=== PATIENT | female | born 1995 | race Caucasian/White ===

== ENCOUNTER 2021-07-16 15:49 | Inpatient (IN) | payer OTHER, SELFPAY ==
[2021-07-16] VITALS (26 sets, daily range): BP systolic 72–148; BP diastolic 29–100; PULSE 81–107; TEMP 37.2; BMI 51.0
[2021-07-16 16:44] LABS: Basophils Percent Auto 0.3 % (0.2-1.2); Eosinophils Absolute Auto 0.2 K/mm3 (0-0.3); Eosinophils Percent Auto 1.8 % (0-4.4); Hematocrit 35.7 % (37.0-47.0); Hemoglobin 11.1 g/dL (12.0-15.0); Immature Granulocyte Percent A 1.1 % (0-0.5); Lymphocytes Absolute Auto 1.46 K/mm3 (0.9-3.2); Lymphocytes Percent Auto 16.4 % (18.3-44.2); Mean Corpuscular HGB Conc 31.1 g/dl (32-36); Mean Corpuscular Hemoglobin 23.3 pg (26-34); Mean Platelet Volume 10.6 fl (7.4-10.4); Monocytes Absolute Auto 0.5 K/mm3 (0.1-0.6); Monocytes Percent Auto 5.3 % (2.6-8.5); Neutrophils Absolute Auto 6.7 K/mm3 (1.3-6.7); Neutrophils Percent Auto 75.1 % (45.5-73.1); Platelet Count Result 345 k/mm3 (150-375); Red Blood Count 4.76 M/mm3 (4.2-5.4); Red Cell Distribution Width 16.4 % (11.5-14.5); White Blood Count 8.9 K/mm3 (4.5-10.0)
[2021-07-16] MEDS: DINOPROSTONE 10 MG VAG INSERT VAGINAL (16:52)
--- NOTE | 2021-07-16 16:57 | LDADM ---
This patient, Chacha Galindo, was admitted to Labor/Delivery/Recovery 105 on 07/16/21 at 15:49. Plans for labor, pain management and were discussed with patient. Patient/family oriented to hospital policies and general routines including ID bracelet, bed and alarms, visiting hours, pain management, procedures, bathroom and other care routines, personal items, smoking policy, room service/diet and guest tray routines, security routines, and visiting hours. Patient/Family are encouraged to report perceived risks to care and to ask questions if they do not understand what they are told or what they should do. See OBIX for further documentation.
[2021-07-16 16:58] LABS: Alanine Aminotransferase 29 U/L (4-35); Albumin Level 3.4 g/dL (3.5-5.1); Alkaline Phosphatase 177 U/L (38-126); Anion Gap 9 mmol/L (8-16); Aspartate Amino Transferase 28 U/L (14-36); Bilirubin,Total 0.2 mg/dL (0.2-1.3); Blood Urea Nitrogen 13 mg/dL (7-17); Calcium 9.1 mg/dL (8.4-10.2); Carbon Dioxide 19 mmol/L (22-30); Chloride 105 mmol/L (98-107); Estimated Glomerular Filt Rate > 60; Glucose 107 mg/dL (65-110); Sodium 133 mmol/L (137-145); Uric Acid 6.1 mg/dL (2.5-7.5)
--- NOTE | 2021-07-16 19:15 | WPDANESEPP ---
Anes - Eval Pre Procedure Procedure: labor pain Date/Time: 07/16/21 19:15 Surgeon: luann Pre Op Diagnosis: IOL Patient Data Age: 26 Gender: F Height: 1.5 m Weight: 114.55 kg Last Vital Signs Temp 37.2 C 07/16/21 17:01 Pulse 91 07/16/21 19:01 BP 136/65 07/16/21 19:01 Allergies Allergy/AdvReac Type Severity Reaction Status Date / Time No Known Allergies Allergy Verified 06/20/21 12:20 Home Medications Medication Instructions Recorded Confirmed Type famotidine [Pepcid] 40 mg PO DAILY 06/20/21 06/20/21 History prenat.vits,crystal,[id number] 1 tablet PO DAILY 06/20/21 06/20/21 History [ #2] Laboratory Tests 07/16/21 07/16/21 07/16/21 16:18 16:18 16:18 WBC 8.9 K/mm3 K/mm3 (4.5-10.0) RBC 4.76 M/mm3 M/mm3 (4.2-5.4) Hgb 11.1 g/dL L g/dL (12.0-15.0) Hct 35.7 % L % (37.0-47.0) MCV 75.0 fl L fl (80-100) MCH 23.3 pg L pg (26-34) MCHC 31.1 g/dl L g/dl (32-36) RDW 16.4 % H % (11.5-14.5) Plt Count 345 k/mm3 k/mm3 (150-375) MPV 10.6 fl H fl (7.4-10.4) Immature Gran % (Auto) 1.1 % H % (0-0.5) Neut % (Auto) 75.1 % H % (45.5-73.1) Lymph % (Auto) 16.4 % L % (18.3-44.2) [place] % (Auto) 5.3 % % (2.6-8.5) Eos % (Auto) 1.8 % % (0-4.4) Baso % (Auto) 0.3 % % (0.2-1.2) Lymph # (Auto) 1.46 K/mm3 K/mm3 (0.9-3.2) [place] # (Auto) 0.5 K/mm3 K/mm3 (0.1-0.6) Eos # (Auto) 0.2 K/mm3 K/mm3 (0-0.3) Baso # (Auto) 0.0 K/mm3 K/mm3 (0.0-0.1) Abs Immat Gran (auto) 0.10 K/mm3 H K/mm3 (0.00-0.031) Absolute Neuts (auto) 6.7 K/mm3 K/mm3 (1.3-6.7) Absolute Nucleated RBC 0.0 K/mm3 K/mm3 (0.0-0.012) Nucleated RBC % 0.0 % % (0.0-0.2) Sodium Potassium Chloride Carbon Dioxide Anion Gap BUN Creatinine Estim Creat Clear Calc Estimated GFR Glucose Uric Acid Cancelled Calcium Total Bilirubin AST ALT Alkaline Phosphatase Total Protein Albumin RPR Pending Blood Type Antibody Screen 07/16/21 07/16/21 16:18 16:18 WBC RBC Hgb Hct MCV MCH MCHC RDW Plt Count MPV Immature Gran % (Auto) Neut % (Auto) Lymph % (Auto) [place] % (Auto) Eos % (Auto) Baso % (Auto) Lymph # (Auto) [place] # (Auto) Eos # (Auto) Baso # (Auto) Abs Immat Gran (auto) Absolute Neuts (auto) Absolute Nucleated RBC Nucleated RBC % Sodium 133 mmol/L L mmol/L (137-145) Potassium 4.0 mmol/L mmol/L (3.4-5.0) Chloride 105 mmol/L mmol/L (98-107) Carbon Dioxide 19 mmol/L L mmol/L (22-30) Anion Gap 9 mmol/L mmol/L (8-16) BUN 13 mg/dL mg/dL (7-17) Creatinine 0.80 mg/dL mg/dL (0.7-1.0) Estim Creat Clear Calc Not Reportable Estimated GFR > 60 (59 - ) Glucose 107 mg/dL mg/dL (65-110) Uric Acid 6.1 mg/dL mg/dL (2.5-7.5) Calcium 9.1 mg/dL mg/dL (8.4-10.2) Total Bilirubin 0.2 mg/dL mg/dL (0.2-1.3) AST 28 U/L U/L (14-36) ALT 29 U/L U/L (4-35) Alkaline Phosphatase 177 U/L H U/L (38-126) Total Protein 6.0 g/dL L g/dL (6.3-8.2) Albumin 3.4 g/dL L g/dL (3.5-5.1) RPR Blood Type A Positive Antibody Screen Negative Patient hx anesthesia problems: none Family hx anesthesia problems: none Results Review: All pre-operative results and documents have b
[2021-07-17] VITALS (173 sets, daily range): BP systolic 77–149; BP diastolic 42–104; PULSE 67–150; RESP 18–20; TEMP 36.5–38.3; O2SAT 83–100
[2021-07-17] MEDS: LACTATED RINGERS 1,000 ML 125 ML IV CONT ×2 (06:05→18:08)
[2021-07-17] MEDS: OXYTOCIN 30 UNITS/NS 500 ML 30 UNITS/500 ML BAG 6 UNITS IV CONT (06:05)
--- NOTE | 2021-07-17 08:45 | PM.IMHP ---
H&P: HPI History of Present Illness Date/Time: 07/17/21 0845 26 y/o G1 at 39 3/7 weeks with gestational hypertension, here for induction of labor. Cervidil overnight, has been withdrawn. Feeling more contractions. Chief Complaint: Here for induction of labor. Review of Systems Review of Systems: All systems reviewed & are unremarkable except as noted in HPI and below PMFSH Past Medical History Medical History Asthma affecting in third trimester Eczema GERD (gastroesophageal reflux disease) Obesity affecting in third trimester Family History Family History Father Hypertension Sibling Asthma Grandparent Lung cancer Social History Social History Smoking status: Never smoker Substance use: never Spiritual care concerns: No Meds Home Medications and Allergies Home Medications Medication Instructions Recorded Confirmed Type famotidine [Pepcid] 40 mg PO DAILY 06/20/21 06/20/21 History prenat.vits,crystal,xdy-xcrh-dcdmi 1 tablet PO DAILY 06/20/21 06/20/21 History [ #2] Allergies Allergy/AdvReac Type Severity Reaction Status Date / Time No Known Allergies Allergy Verified 06/20/21 12:20 Vital Signs Vital Signs - 24 hr 07/16/21 16:15 07/16/21 16:38 07/16/21 17:01 Temperature 37.2 C Pulse Rate 107 H 104 H Respiratory Rate Blood Pressure 142/100 H 131/69 Pulse Oximetry 07/16/21 17:16 07/16/21 17:31 07/16/21 17:46 Temperature Pulse Rate 84 85 87 Respiratory Rate Blood Pressure 130/75 126/73 108/59 L Pulse Oximetry 07/16/21 18:01 07/16/21 18:16 07/16/21 18:31 Temperature Pulse Rate 100 84 91 Respiratory Rate Blood Pressure 72/55 L 107/75 148/68 H Pulse Oximetry 07/16/21 18:46 07/16/21 19:01 07/16/21 19:17 Temperature Pulse Rate 84 91 85 Respiratory Rate Blood Pressure 129/64 136/65 74/29 L Pulse Oximetry 07/16/21 19:31 07/16/21 20:16 07/16/21 20:31 Temperature Pulse Rate 89 84 83 Respiratory Rate Blood Pressure 119/70 143/72 H 127/59 L Pulse Oximetry 07/16/21 20:46 07/16/21 21:01 07/16/21 21:16 Temperature Pulse Rate 91 86 83 Respiratory Rate Blood Pressure 115/69 125/76 131/67 Pulse Oximetry 07/16/21 21:31 07/16/21 21:46 07/16/21 22:01 Temperature Pulse Rate 84 81 86 Respiratory Rate Blood Pressure 146/88 H 126/75 137/67 Pulse Oximetry 07/16/21 22:16 07/16/21 22:31 07/16/21 22:32 Temperature Pulse Rate 92 91 85 Respiratory Rate Blood Pressure 135/82 130/78 Pulse Oximetry 07/16/21 22:46 07/16/21 23:01 07/17/21 01:00 Temperature 37.2 C Pulse Rate 94 86 Respiratory Rate 18 Blood Pressure 139/71 120/63 Pulse Oximetry 07/17/21 03:16 07/17/21 06:20 07/17/21 06:31 Temperature Pulse Rate 95 87 92 Respiratory Rate Blood Pressure 121/65 139/60 136/76 Pulse Oximetry 07/17/21 07:02 07/17/21 07:06 07/17/21 07:31 Temperature 36.9 C Pulse Rate 89 101 H Respiratory Rate Blood Pressure 131/52 L 110/70 Pulse Oximetry 07/17/21 08:00 07/17/21 08:11 07/17/21 08:30 Temperature 36.9 C 36.8 C Pulse Rate 94 Respiratory Rate Blood Pressure 127/68 Pulse Oximetry 07/17/21 08:49 07/17/21 09:01 07/17/21 10:19 Temperature Pulse Rate 87 96 Respiratory Rate Blood Pressure 146/74 H 132/72 Pulse Oximetry 98 07/17/21 10:21 07/17/21 10:22 07/17/21 10:24 Temperature Pulse Rate 137 H 97 Respiratory Rate Blood Pressure 148/104 H 148/85 H Pulse Oximetry 99 07/17/21 10:29 07/17/21 10:34 07/17/21 10:39 Temperature Pulse Rate 92 Respiratory Rate Blood Pressure 141/67 H Pulse Oximetry 99 100 99 07/17/21 10:42 07/17/21 10:43 07/17/21 10:45 Temperature Pulse Rate 83 86 Respiratory
[2021-07-17] MEDS: fentaNYL CITRATE INJ (*CRX) 100 MCG/2 ML VIAL 50 MCG IV PUSH (09:45)
--- NOTE | 2021-07-17 13:00 | PM.OBPNLAB ---
Pain Control Date/time seen: 07/17/21 1300 Comments: Comfortable with epidural. Pelvic Exam Dilation (cm): 5 Effacement (%): 90 station: -1 Comments: IUPC placed. Contractions Contraction frequency: 3 Contraction pattern: Regular Status status: Category l Assessment and Plan Comments: Continue labor.
[2021-07-17 14:33] LABS: Rapid Plasma Reagin Non-Reactive (NonReactive)
[2021-07-17] MEDS: SODIUM CHLORIDE 0.9% IV 300 ML 600 ML I-UTERINE (14:34)
--- NOTE | 2021-07-17 18:38 | PM.OBPNLAB ---
Pain Control Date/time seen: 07/17/21 18:38 Feeling pressure. Pelvic Exam Dilation (cm): 10 Effacement (%): 100 station: -1 Contractions Contraction frequency: 3 Contraction pattern: Regular Status status: Category l Assessment and Plan Pitocin rate (mU/min): 18 Comments: Continue pushing.
[2021-07-17] MEDS: ONDANSETRON INJ 4 MG/2 ML VIAL IV PUSH (19:05)
--- NOTE | 2021-07-17 20:13 | PM.OBPNLAB ---
Pain Control Date/time seen: 07/17/21 20:13 Has pushed for approximately 3 hours total, with no significant descent of the head. Pelvic Exam Dilation (cm): 10 Effacement (%): 100 station: -1 Contractions Contraction frequency: 3 Contraction pattern: Regular Status status: Category l Assessment and Plan Comments: A: Arrest of descent in labor. EFW is difficult to assess due to body habitus, but EFW to my exam is 8.5 lbs. P: In light of her clinical picture, I do not think an operative vaginal delivery is advisable. Offered primary . Reviewed risks, benefits, alternatives in detail. She understands risks of surgery to include risks of anesthesia, risks of pain, infection, bleeding, blood products, thromboembolic phenomena and damage to adjacent structures such as bowel, bladder, ureters, blood vessels and nerves. She understands all these risks and elects to proceed with primary delivery.
--- NOTE | 2021-07-17 21:19 | P.PCNOB_ITS ---
OB - Delivery Note Procedure Delivery date: 07/17/21 Procedure: Primary low transverse delivery Induction method: per cervidil protocol Delivery augmentation: rupture of membranes and pitocin Delivery monitor: external FHT, external uterine, internal FHT and internal uterine Route of delivery: (LTCS) Specimen: Yes (cord blood) Quantitative Blood Loss (ml): 830 Anesthesia type: Epidural Disposition: PACU Complications: None Narrative: The patient was taken to the operating room where she was prepared and draped in the usual sterile fashion in dorsal supine position with a leftw mary tilt. She received cefazolin preoperatively. Spinal anesthesia was found to be adequate. A Pfannenstiel skin incision was made and carried through to the underlying layer of the fascia. The fascia was incised in the midline and the incision was extended laterally. The fascia was dissected free of the underlying rectus muscles. The rectus muscles were in the midline. The peritoneum was identified, tented up and entered sharply. The peritoneal incision was extended superiorly and inferiorly with good visualization of the bladder. The bladder blade was placed. The vesicouterine peritoneum was identified, tented up and entered sharply. The incision was extended laterally and the bladder flap was developed. The bladder blade was replaced. The uterus was then incised sharply in a transverse fashion along the lower uterine segment. The incision was extended laterally. The 's head was delivered atraumatically to the sterile field, followed by the body. The nose and mouth were bulb suctioned. After a delay, the cord was clamped and cut. The was handed off the field. Cord blood was collected. The placenta was removed manually and was passed off the field. The uterus was exteriorized and cleared of all clots and debris. The uterine incision was reapproximated using 0 Monocryl in a running, locked fashion. A second, imbricating layer of the same suture was run. Excellent hemostasis resulted as did excellent reapproximation of the normal anatomy. The uterus was returned the abdomen. The pelvis was irrigated copiously with warmed normal saline. Hemaderm was applied to the bladder flap. Rigorous hemostasis was assured. The fascial layer was reapproximated using 0 Vicryl in a running fashion. The skin was closed with a running, subcuticular stitch of 4 0 Vicryl. Dermaflex was applied externally. Sponge, lap, needle and instrument counts were correct. The patient was taken to the recovery room in stable condition. The infant went to the nursery in stable condition. I was present and scrubbed the entire procedure. [place] Baby Date of : 07/17/21 Time of : 20:39 Weeks of gestation at delivery: 39 Infant gender: Male Weight (pounds): 8 Weight (ounces): 3 presentation: vertex Placenta delivery description: Manual Removal and Normal Configuration cord vessel description: 3 Vessels, Nuchal Cord (x2) and Delayed Cord Clamping score one minute: 8 score five minutes: 9
--- NOTE | 2021-07-17 21:22 | PM.OBDSVD ---
DS: Admitting Diagnosis Discharge Date 07/19/21 Admitting Diagnosis IUP at 39 3/7 weeks Gestational hypertension DS: Discharge Diagnosis Discharge Diagnosis (1) Gestational hypertension: Code(s): O13.9 - Gestational [-induced] hypertension without significant proteinuria, unspecified trimester Status: Acute (2) delivery delivered: Code(s): O82 - Encounter for delivery without indication Status: Acute OB - DS: Summary OB Procedures : None OB Procedures Intrapartum: OB Procedures: : None DS: Data Data Completed and Pending Labs on day of discharge: Labs from last 24 hours 07/16/21 16:18 RPR Non-reactive Discharge Plan Discharge Attending physician on discharge: Emeterio Kong Discharging Clinician: Emeterio Kong Patient Disposition: Home, Self-Care Activity: may shower, may drive after 2 weeks and pelvic rest Diet: regular Wound Care Instructions: incision open to air Discharge Instructions: Call or return if temperature above 100.4? F, increased abdominal pain, increased vaginal bleeding or any new problems. 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
[2021-07-17] MEDS: ceFAZolin 2 GM/D5W 50 ML 2 GM/50 ML BAG 125 GM (23:09)
[2021-07-18 00:11] VITALS: BP 131/80; PULSE 85; RESP 18; TEMP 36.8
[2021-07-18] MEDS: DEXTROSE 5%/0.45% SOD CHL 1,000 ML 125 ML IV CONT (00:11)
--- NOTE | 2021-07-18 00:11 | ADMGEN ---
This patient, Chacha Galindo, was admitted to OB 2nd Floor Room 280-00. Patient/family oriented to hospital policies and general routines including ID bracelet, bed and alarms, visiting hours, pain management, procedures, bathroom and other care routines, personal items, smoking policy, room service/diet, and visiting hours. Information on how to activate the Rapid Response Team has been discussed. Patient/Family are encouraged to report perceived risks to care and to ask questions if they do not understand what they are told or what they should do.
[2021-07-18] MEDS: diphenhydrAMINE HCl INJ 50 MG/ML VIAL 25 MG IV PUSH (00:35)
[2021-07-18 04:12] VITALS: BP 126/70; PULSE 80; RESP 18; TEMP 36.9
[2021-07-18] MEDS: TETANUS,DIPHTHERIA,AC PERTUSSIS ADULT (0.5 ML) BOOSTRIX IM (04:39)
[2021-07-18] MEDS: HYDROcodone/acetaminophen (*CRX) 10-325 MG TABLET 1 TAB PO ×4 (04:40→20:37)
[2021-07-18] MEDS: IBUPROFEN 600 MG TABLET PO ×4 (04:41→20:38)
[2021-07-18] MEDS: SIMETHICONE 80 MG TAB.CHEW PO ×2 (04:41→15:00)
[2021-07-18 05:18] LABS: Basophils Absolute Auto 0.1 K/mm3 (0.0-0.1); Basophils Percent Auto 0.4 % (0.2-1.2); Eosinophils Percent Auto 0.2 % (0-4.4); Hematocrit 31.2 % (37.0-47.0); Hemoglobin 9.7 g/dL (12.0-15.0); Immature Granulocyte Absolute 0.12 K/mm3 (0.00-0.031); Immature Granulocyte Percent A 0.8 % (0-0.5); Lymphocytes Absolute Auto 1.36 K/mm3 (0.9-3.2); Lymphocytes Percent Auto 9.1 % (18.3-44.2); Mean Corpuscular HGB Conc 31.1 g/dl (32-36); Mean Corpuscular Hemoglobin 23.2 pg (26-34); Mean Corpuscular Volume 74.6 fl (80-100); Monocytes Absolute Auto 1.2 K/mm3 (0.1-0.6); Monocytes Percent Auto 7.8 % (2.6-8.5); Neutrophils Absolute Auto 12.3 K/mm3 (1.3-6.7); Neutrophils Percent Auto 81.7 % (45.5-73.1); Platelet Count Result 302 k/mm3 (150-375); Red Blood Count 4.18 M/mm3 (4.2-5.4); Red Cell Distribution Width 16.5 % (11.5-14.5)
--- NOTE | 2021-07-18 07:42 | WPDANLDNPN2 ---
Anes-Prog Note L&D-Neuraxial Date/Time: 07/18/21 07:42 Neuraxial medications: epidural PF morphine Opiod-related complaints: none Patient feedback: Patient satisfied with post-operative pain management.
--- NOTE | 2021-07-18 07:43 | WPDANLDPN2 ---
Anes-Prog Note L&D Date/Time: 07/18/21 07:43 Comfortable throughout: labor and section Neuraxial method: epidural Epidural/Spinal procedure site: clean & non-tender Neuro status: Neuro function grossly intact. Cardiovascular status: normal Respiratory status: normal Airway patency: baseline Mental status: baseline Post-Op hydration status: normal Vital Signs: Last Vital Signs Temp 98.4 F 07/18/21 04:12 Pulse 80 07/18/21 04:12 Resp 18 07/18/21 04:12 BP 126/70 07/18/21 04:12 Pulse Ox 95 07/17/21 23:22 Pain score (VAS): 0/10 I/O: Intake & Output 07/17/21 07/17/21 07/18/21 15:59 23:59 07:59 Intake Total 1000 Output Total 830 Balance 1000 -830 Post-procedural complaints: none Patient feedback: Patient satisfied with anesthetic care.
[2021-07-18 08:55] VITALS: BP 114/62; PULSE 84; RESP 16; TEMP 36.1; O2SAT 98
[2021-07-18] MEDS: DOCUSATE SODIUM 100 MG CAPSULE PO ×2 (10:09→16:36)
[2021-07-18] MEDS: MULTIVIT/MIN/PREN/FOL AC/IRON TABLET 1 TAB PO (10:09)
[2021-07-18] MEDS: POLYSACCHARIDE IRON COMPLEX 150 MG CAPSULE PO ×2 (10:09→16:36)
[2021-07-18 11:56] VITALS: BP 102/55; PULSE 87; RESP 18; TEMP 36.8; O2SAT 98
--- NOTE | 2021-07-18 13:27 | PM.OBPNVD ---
OB - PN: Subj Subjective Date/time seen: 07/18/21 13:27 Narrative: Pain OK. Tolerating diet. Would like circumcision for son. OB - PN: Obj Data Labs CBC & Chem 7: 07/18/21 04:38 07/16/21 16:18 Labs: Laboratory Results - last 24 hr 07/16/21 07/18/21 16:18 04:38 WBC 15.0 H RBC 4.18 L Hgb 9.7 L Hct 31.2 L MCV 74.6 L MCH 23.2 L MCHC 31.1 L RDW 16.5 H Plt Count 302 MPV 11.0 H Immature Gran % (Auto) 0.8 H Neut % (Auto) 81.7 H Lymph % (Auto) 9.1 L [place] % (Auto) 7.8 Eos % (Auto) 0.2 Baso % (Auto) 0.4 Lymph # (Auto) 1.36 [place] # (Auto) 1.2 H Eos # (Auto) 0.0 Baso # (Auto) 0.1 Abs Immat Gran (auto) 0.12 H Absolute Neuts (auto) 12.3 H Absolute Nucleated RBC 0.0 Nucleated RBC % 0.0 RPR Non-reactive OB - PN A/P Plan Comments: A: POD#1, doing well. P: Routine care. Reviewed circ. Exam Narrative: AVSS I/O OK ABD soft, nontender, fundus firm. Incision c/d/i. EXT nontender
--- NOTE | 2021-07-18 14:18 | PC.NURSE ---
1150 - Primary RN requested a consulted with patient. RN introduced and discussed mom's desires to feed her baby. Mom has large breast with flat nipples. We reviewed feeding cues, frequencies, duration of feedings, feeding elimination flow sheet, and signs of adequate intake. Mom states she attempted for 45 min last night to breastfeed, with a nipple shield and obtained rare suck with Elaine ANDERSON. Mom desires to make human milk. Reviewed the stimulation of breast to make milk either with effective latch and or pumping. Mom states she placed the infant in the nursery last night for bottle feeding and would like to initiate pumping. Breast pump provided due to ineffective feeding. Instructions given on breast pump care and usage, pumping schedule, nipple care, and collection and storage of breast milk. Encouraged [id number], breast massage and manual expression to stimulate supply. Pumping will be logged on the feeding sheet and reviewed. Assessed patient for correct flange size, placement and draw. Patient verbalizes and demonstrates understanding of instructions. Instructed feeding should be initiated three hours from start of last feeding or if feeding cues are visualize before. Mother voiced understanding of information shared.
[2021-07-18 16:20] VITALS: BP 104/49; PULSE 80; RESP 16; TEMP 36.1; O2SAT 100
[2021-07-18 18:30] VITALS: BP 108/52; PULSE 90; RESP 18; TEMP 36.8
[2021-07-19] VITALS: BP 98/54; PULSE 87; RESP 18; TEMP 36.6
[2021-07-19 03:43] VITALS: BP 110/59; PULSE 88; RESP 18; TEMP 36.9
[2021-07-19] MEDS: IBUPROFEN 600 MG TABLET PO ×2 (05:05→13:17)
[2021-07-19] MEDS: HYDROcodone/acetaminophen (*CRX) 10-325 MG TABLET 1 TAB PO ×2 (05:06→08:30)
[2021-07-19 07:40] VITALS: BP 90/51; PULSE 82; RESP 16; TEMP 37.1; O2SAT 98
[2021-07-19] MEDS: MULTIVIT/MIN/PREN/FOL AC/IRON TABLET 1 TAB PO (08:30)
[2021-07-19] MEDS: POLYSACCHARIDE IRON COMPLEX 150 MG CAPSULE PO (08:30)
[2021-07-19] MEDS: DOCUSATE SODIUM 100 MG CAPSULE PO (08:30)
--- NOTE | 2021-07-19 08:54 | PM.OBPNVD ---
OB - PN: Subj Subjective Date/time seen: 07/19/21 08:54 Narrative: Pain OK. Tolerating diet. Would like to go home. OB - PN: Obj Data Labs CBC & Chem 7: 07/18/21 04:38 07/16/21 16:18 OB - PN A/P Plan Comments: A: POD#2, doing well. P: Home to f/u 4 weeks. Exam Narrative: AVSS ABD soft, nontender, fundus firm. Incision c/d/i. EXT nontender
[2021-07-19 12:21] VITALS: BP 142/74; PULSE 88; RESP 16; TEMP 36.4; O2SAT 100
--- NOTE | 2021-07-19 13:00 | PC.NURSE ---
Patient viewed the discharge video Mother & Baby Care, The First Two Weeks . Patient was given the opportunity and encouraged to ask questions. Patient verbalized understanding of information shared and has been given the mother/baby guide for home reference.
[2021-07-19] MEDS: HYDROcodone/acetaminophen (*CRX) 5-325 MG TABLET 1 TAB PO (13:16)
[2021-07-21 10:11] VITALS: BP 142/76; PULSE 83; RESP 18; TEMP 36.6
== END 2021-07-19 14:28 | disposition home or self-care (01) | DRG 788 ==
LOC: ANHLDR 07-17 21:23 → ANHOB2 07-18 00:12
PROVIDERS: Admitting Provider Obstetrics & Gynecology; Visit Provider Obstetrics & Gynecology
PROC: 10D00Z1 Extraction of Products of Conception, Low, Open Approach (ICD-10-PCS; CPT 59514; principal; 2021-07-17 20:30)
DX: O32.4XX0 Maternal care for high head at term, not applicable or unspecified (principal); O13.4 Gestational [pregnancy-induced] hypertension without significant proteinuria, complicating childbirth; O99.214 Obesity complicating childbirth; O69.81X0 Labor and delivery complicated by cord around neck, without compression, not applicable or unspecified; O76 Abnormality in fetal heart rate and rhythm complicating labor and delivery; Z3A.39 39 weeks gestation of pregnancy; Z37.0 Single live birth
CPT/HCPCS: 36415; 80053; 84550; 85025; 86592; 86850; 86900; 86901; 90715; A9270; J0131; J0690; J1200; J2274; J2370; J2405; J2590; J2795; J3010; J7030; J7120

== ENCOUNTER 2021-07-24 03:16 | Observation (INO) | payer OTHER, SELFPAY ==
[2021-07-24] VITALS (17 sets, daily range): BP systolic 107–133; BP diastolic 51–92; PULSE 65–83; RESP 16–20; TEMP 36.4–36.9; O2SAT 97–99
--- NOTE | ~2021-07-24 | CT_ITS ---
EXAMINATION: CT abdomen pelvis w con DATE: 07/24/2021 08:36 INDICATION: Abdominal pain. Rule out pancreatitis. One week . TECHNIQUE: Computed tomography (CT) of the abdomen and pelvis was performed with 100 cc Omnipaque 350 intravenous contrast. Automated exposure control and iterative reconstruction technique were employe d. Exam dose: 1370.06 mGy-cm total exam DLP. COMPARISON: None. FINDINGS: The lung bases are clear. Normal heart size. No pericardial or pleural effusion. The liver, gallbladder, bile ducts, spleen, pancreas and pancreatic duct as well as the adrenal gland s and kidneys appear normal. No urinary tract calculus or hydroureteronephrosis. Normal caliber of the abdominal aorta. No intraperitoneal or retroperitoneal or pelvic mass lesion or adenopathy or ascites. Enlarged uterus. The urinary bladder appears unremarkable. Normal appendix. Diverticulosis of left and right colon; no CT evidence of diverticulitis. No bowel obstruction or intraperitoneal f ree air. Included skeletal structures are unremarkable. IMPRESSION: Enlarged uterus No CT evidence of pancreatitis is detected; negative CT examination does not exclude pancreatitis. Cl inical correlation is advised. Diverticulosis of left and right colon; no CT evidence of diverticulitis Normal appendix Reviewed, dictated and finalized at [facility]. Reviewed, dictated and finalized at location [facility]. E ASSEMBLER IMPRESSION: Enlarged uterus No CT evidence of pancreatitis is detected; negative CT examination does not ex clude pancreatitis. Clinical correlation is advised. Diverticulosis of left and right colon; no CT evidence of diverticulitis Normal appendix
[2021-07-24] MEDS: MAGNESIUM SULF 20GM/WATER500ML 500 ML 50 MG IV CONT ×3 (03:52→23:12)
[2021-07-24] MEDS: LACTATED RINGERS 1,000 ML 75 ML IV CONT ×2 (03:53→17:54)
[2021-07-24 05:12] LABS: Basophils Percent Auto 0.4 % (0.2-1.2); Eosinophils Absolute Auto 0.3 K/mm3 (0-0.3); Hematocrit 31.9 % (37.0-47.0); Hemoglobin 9.6 g/dL (12.0-15.0); Immature Granulocyte Absolute 0.27 K/mm3 (0.00-0.031); Lymphocytes Absolute Auto 1.17 K/mm3 (0.9-3.2); Lymphocytes Percent Auto 17.4 % (18.3-44.2); Mean Corpuscular HGB Conc 30.1 g/dl (32-36); Mean Corpuscular Hemoglobin 22.9 pg (26-34); Mean Corpuscular Volume 76.1 fl (80-100); Mean Platelet Volume 9.5 fl (7.4-10.4); Monocytes Absolute Auto 0.5 K/mm3 (0.1-0.6); Monocytes Percent Auto 7.4 % (2.6-8.5); Neutrophils Absolute Auto 4.5 K/mm3 (1.3-6.7); Neutrophils Percent Auto 66.8 % (45.5-73.1); Nucleated Red Blood Cells Perc 0.3 % (0.0-0.2); Platelet Count Result 433 k/mm3 (150-375); Red Blood Count 4.19 M/mm3 (4.2-5.4); White Blood Count 6.7 K/mm3 (4.5-10.0)
--- NOTE | 2021-07-24 05:19 | PC.NURSE ---
2129- pt presented to OB unit with c/o mid upper abd pain radiating to back and some nausea. pt currently [address] Jamie Hawkins(on-call DrReuben) prior to admission, recommends pt be seen through our ER for eval of current sxs. 0144-received call from house cleaner. pt currently at [facility] ER. Per Dr. Jamie Hawkins- direct admit pt to OB unit for 24 hour observation for Pre-eclampsia and pancreatitis. orders received for Mag sulfate 2g/hr, labetalol 200mg po q 8 hours, labs-CMP,Uric acid, CBC, Lipase at 0500, NPO. pt is currently 7 days PP . 212- received report from Francy ANDERSON at [facility] ER- pt presented with upper abd pain, VS stable, A&Ox4, received zofran and GI cocktail, currently on mag 4g bolus. lipase 823, UA-3+protein. 20 R FA. pt will be transported via EMS to our OB unit.
[2021-07-24 05:20] LABS: Alanine Aminotransferase 191 U/L (4-35); Albumin Level 3.2 g/dL (3.5-5.1); Alkaline Phosphatase 578 U/L (38-126); Anion Gap 10 mmol/L (8-16); Aspartate Amino Transferase 343 U/L (14-36); Bilirubin,Total 0.7 mg/dL (0.2-1.3); Blood Urea Nitrogen 12 mg/dL (7-17); Calcium 8.2 mg/dL (8.4-10.2); Carbon Dioxide 23 mmol/L (22-30); Chloride 103 mmol/L (98-107); Estimated Glomerular Filt Rate > 60; Glucose 109 mg/dL (65-110); Lipase 153 U/L (23-300); Potassium 3.8 mmol/L (3.4-5.0); Sodium 136 mmol/L (137-145); Uric Acid 5.8 mg/dL (2.5-7.5)
--- NOTE | 2021-07-24 07:41 | PM.IMHP ---
H&P: HPI History of Present Illness Date/Time: 07/24/21 07:41 Chief Complaint: [age] female who is 6 days out from her section with complaints of mid epigastric pain. She was seen in the emergency department at [facility] with elevated liver enzymes and pancreatic enzymes. She has 3+ protein and pressures were elevated all consistent with -induced hypertension. She is admitted for observation fluids and treatment of her above problem. Review of Systems Review of Systems: All systems reviewed & are unremarkable except as noted in HPI and below PMFSH Past Medical History Medical History Asthma affecting in third trimester Eczema GERD (gastroesophageal reflux disease) Obesity affecting in third trimester Family History Family History Father Hypertension Sibling Asthma Grandparent Lung cancer Social History Social History Smoking status: Never smoker Substance use: never Spiritual care concerns: No Meds Home Medications and Allergies Home Medications Medication Instructions Recorded Confirmed Type famotidine [Pepcid] 40 mg PO DAILY 06/20/21 06/20/21 History prenat.vits,crystal,hog-clkp-ofkid 1 tablet PO DAILY 06/20/21 06/20/21 History hydrocodone-acetaminophen 1 - 2 tablet PO Q6H PRN #30 tablet 07/17/21 Rx ibuprofen 600 mg PO Q6H PRN #30 tablet 07/17/21 Rx ferrous sulfate 325 mg PO DAILY #30 tablet 07/18/21 Rx Allergies Allergy/AdvReac Type Severity Reaction Status Date / Time No Known Allergies Allergy Verified 06/20/21 12:20 Vital Signs Vital Signs - 24 hr 07/24/21 03:45 07/24/21 03:46 07/24/21 04:01 Temperature 97.5 F L Pulse Rate 65 65 71 Respiratory Rate 16 Blood Pressure 128/59 L 128/59 L 130/54 L 07/24/21 04:16 07/24/21 04:31 07/24/21 04:46 Temperature Pulse Rate 71 79 65 Respiratory Rate Blood Pressure 125/59 L 114/62 120/64 07/24/21 06:50 07/24/21 06:52 Temperature 98.5 F Pulse Rate 79 79 Respiratory Rate 18 Blood Pressure 133/70 133/70 Exam Const: General: no acute distress Eyes: General: appearance normal, both eyes and all related structures Neck: Neck: supple and no JVD Thyroid: thyroid normal Resp: Effort & Inspection: normal respiratory effort Auscultation: clear to auscultation bilaterally Cardio: Rate: regular rate Rhythm: regular rhythm GI: Inspection: normal to inspection and incision ( Clean dry and intact) GI Palp: Yes abdominal tenderness Percussion: Yes normal to percussion Auscultation: normal bowel sounds and normoactive bowel sounds Skin: General skin exam: no rashes or lesions noted Extrem: General: normal to inspection and no edema Psych: Mental Status: mental status grossly normal Affect: normal affect H&P: Results Labs Labs: Short CBC 07/24/21 Range/Units 05:04 WBC 6.7 (4.5-10.0) K/mm3 Hgb 9.6 L (12.0-15.0) g/dL Hct 31.9 L (37.0-47.0) % Plt Count 433 H (150-375) k/mm3 BMP 07/24/21 05:04 Sodium 136 L Potassium 3.8 Chloride 103 Carbon Dioxide 23 BUN 12 Creatinine 0.70 Glucose 109 Calcium 8.2 L Liver Function 07/24/21 Range/Units 05:04 Total Bilirubin 0.7 (0.2-1.3) mg/dL AST 343 H (14-36) U/L ALT 191 H (4-35) U/L Alkaline Phosphatase 578 H (38-126) U/L Albumin 3.2 L (3.5-5.1) g/dL Assessment and Plan Additional Plan impression: -induced hypertension with resultant pancreatitis Plan: IV hydration. Magnesium sulfate has been begun. Treatment for hypertension with labetalol. Antibiotics were begun. Will order CT the abdomen today the CT look at pancreas and liver
--- NOTE | 2021-07-24 08:24 | PC.NURSE ---
To CT scan per wheelchair.
[2021-07-25] VITALS (9 sets, daily range): BP systolic 102–128; BP diastolic 47–75; PULSE 63–77; RESP 16–18; TEMP 36.7–37.1; O2SAT 98
[2021-07-25 05:43] LABS: Basophils Absolute Auto 0.1 K/mm3 (0.0-0.1); Basophils Percent Auto 0.7 % (0.2-1.2); Eosinophils Absolute Auto 0.4 K/mm3 (0-0.3); Eosinophils Percent Auto 4.3 % (0-4.4); Hemoglobin 10.1 g/dL (12.0-15.0); Immature Granulocyte Absolute 0.17 K/mm3 (0.00-0.031); Immature Granulocyte Percent A 1.9 % (0-0.5); Lymphocytes Absolute Auto 1.67 K/mm3 (0.9-3.2); Lymphocytes Percent Auto 18.3 % (18.3-44.2); Mean Corpuscular HGB Conc 30.6 g/dl (32-36); Mean Corpuscular Hemoglobin 22.9 pg (26-34); Mean Corpuscular Volume 74.8 fl (80-100); Mean Platelet Volume 9.6 fl (7.4-10.4); Monocytes Absolute Auto 0.6 K/mm3 (0.1-0.6); Monocytes Percent Auto 6.1 % (2.6-8.5); Neutrophils Absolute Auto 6.3 K/mm3 (1.3-6.7); Neutrophils Percent Auto 68.7 % (45.5-73.1); Platelet Count Result 506 k/mm3 (150-375); Red Blood Count 4.41 M/mm3 (4.2-5.4); Red Cell Distribution Width 17.4 % (11.5-14.5); White Blood Count 9.1 K/mm3 (4.5-10.0)
[2021-07-25 05:56] LABS: Alanine Aminotransferase 152 U/L (4-35); Albumin Level 3.3 g/dL (3.5-5.1); Alkaline Phosphatase 456 U/L (38-126); Anion Gap 9 mmol/L (8-16); Aspartate Amino Transferase 88 U/L (14-36); Bilirubin,Total 0.3 mg/dL (0.2-1.3); Blood Urea Nitrogen 9 mg/dL (7-17); Calcium 6.8 mg/dL (8.4-10.2); Carbon Dioxide 25 mmol/L (22-30); Chloride 99 mmol/L (98-107); Estimated Glomerular Filt Rate > 60; Glucose 120 mg/dL (65-110); Lipase 64 U/L (23-300); Potassium 4.1 mmol/L (3.4-5.0); Sodium 133 mmol/L (137-145)
[2021-07-25] MEDS: LACTATED RINGERS 1,000 ML 75 ML IV CONT (07:04)
--- NOTE | 2021-07-25 08:49 | PM.GYNPNOP ---
PRISON OFFICER - A/P Assessment and plan (1) Preeclampsia in period: Code(s): O14.95 - Unspecified pre-eclampsia, complicating the puerperium Status: Acute Assessment and Plan: A: preeclampsia, resolving. BP normal without medication currently. Doubt pancreatitis. P: Stop magnesium. Plan home later today. Time Spent With Patient Time with patient: less than 15 minutes PRISON OFFICER- PN:Subj Post-Op Subjective Date/time seen: 07/25/21 08:49 Midepigastric pain has resolved. She is tolerating a regular diet. No incisional pain. AVSS UO great ABD soft, nontender, fundus firm. Incision c/d/i. EXT nontender, with 1+ edema bilaterally. AST/ALT both have improved. Transient elevation in lipase resolved. PRISON OFFICER - PN: Obj Data Vital Signs Vital Signs: Vital Signs - 24 hr 07/24/21 11:00 07/24/21 11:03 07/24/21 15:00 Temperature 36.9 C 36.6 C Pulse Rate 75 75 83 Respiratory Rate 18 20 Blood Pressure 130/92 H 130/92 H 107/52 L Pulse Oximetry 07/24/21 15:07 07/24/21 19:00 07/24/21 19:08 Temperature 36.7 C Pulse Rate 83 72 74 Respiratory Rate 18 Blood Pressure 107/52 L 114/51 L 114/51 L Pulse Oximetry 07/24/21 23:00 07/24/21 23:07 07/24/21 23:09 Temperature 36.8 C Pulse Rate 79 79 Respiratory Rate 18 Blood Pressure 118/54 L 118/54 L Pulse Oximetry 99 97 07/25/21 02:52 07/25/21 02:53 07/25/21 03:00 Temperature 36.8 C Pulse Rate 69 69 Respiratory Rate 16 Blood Pressure 120/64 120/64 Pulse Oximetry 98 98 07/25/21 07:04 Temperature 36.7 C Pulse Rate 75 Respiratory Rate 16 Blood Pressure 102/47 L Pulse Oximetry Intake/Output Intake/Output: Intake & Output 07/22/21 07/23/21 07/24/21 07/25/21 23:59 23:59 23:59 23:59 Intake Total 3100 1500 Output Total 5936 1900 Balance -2825 -400 Meds/Results Medications: Active Medications Generic Name Dose Route Start Last Admin Trade Name Freq PRN Reason Stop Dose Admin Magnesium Sulfate 500 mls @ 50 mls/hr 07/24/21 03:30 07/24/21 23:12 Magnesium Sulf 20gm/[id number] IV CONT 50 mls/hr .Q10H DALI Administration Lactated Ringer's 1,000 mls @ 75 mls/hr 07/24/21 03:30 07/25/21 07:04 Lr - Lactated Ringers Iv IV CONT 75 mls/hr .[id number] DALI Administration Ceftriaxone Sodium/Dextrose 1 gm in 50 mls @ 100 mls/hr 07/24/21 09:00 07/24/21 09:07 Rocephin 1 Gm/D5w 50 Ml IVPB 100 mls/hr Q24H DALI Administration Labetalol HCl 200 mg 07/24/21 03:30 07/24/21 15:31 Labetalol Hcl 100 Mg Tablet PO Not Given Q8H DALI Radiology Results: ITS Impressions Abdomen/Pelvis CT 07/24/21 08:39 IMPRESSION: Enlarged uterus No CT evidence of pancreatitis is detected; negative CT examination does not exclude pancreatitis. Clinical correlation is advised. Diverticulosis of left and right colon; no CT evidence of diverticulitis Normal appendix Labs CBC & Chem 7: 07/25/21 05:24 07/25/21 05:24 Labs: Laboratory Results - last 24 hr 07/25/21 07/25/21 05:24 05:24 WBC 9.1 RBC 4.41 Hgb 10.1 L Hct 33.0 L MCV 74.8 L MCH 22.9 L MCHC 30.6 L RDW 17.4 H Plt Count 506 H MPV 9.6 Immature Gran % (Auto) 1.9 H Neut % (Auto) 68.7 Lymph % (Auto) 18.3 [place] % (Auto) 6.1 Eos % (Auto) 4.3 Baso % (Auto) 0.7 Lymph # (Auto) 1.67 [place] # (Auto) 0.6 Eos # (Auto) 0.4 H Baso # (Auto) 0.1 Abs Immat Gran (auto) 0.17 H Absolute Neuts (auto) 6.3 Absolute Nucleated RBC 0.0 Nucleated RBC % 0.0 Sodium 133 L Potassium 4.1 Chloride 99 Carbon Dioxide 25 Anion Gap 9 BUN 9 Creatinine 0.70 Estim Creat Clear Calc Not Reportable Estimated GFR > 60 Glucose 120 H Calcium 6.8 L Total Bilirubin 0.3 AST 88 H ALT 152 H Alkaline Phosphatase 456 H Total Protein 6.0 L Albumin 3.3 L Lipase 64
== END 2021-07-25 14:05 | disposition home or self-care (01) ==
PROVIDERS: Admitting Provider Obstetrics & Gynecology; Visit Provider Obstetrics & Gynecology
DX: O13.5 Gestational [pregnancy-induced] hypertension without significant proteinuria, complicating the puerperium (principal); K85.90 Acute pancreatitis without necrosis or infection, unspecified; J45.909 Unspecified asthma, uncomplicated; K21.9 Gastro-esophageal reflux disease without esophagitis
CPT/HCPCS: 36415; 74177; 80053; 83690; 84550; 85025; 96365; 96366; 96367; 96368; G0378; G0379; J0696; J3475; J7120; Q9967

== ENCOUNTER 2021-07-30 12:50 | Inpatient (IN) | payer OTHER, SELFPAY ==
[2021-07-30] VITALS (28 sets, daily range): BP systolic 111–144; BP diastolic 56–107; PULSE 61–126; RESP 16; TEMP 36.5–37; O2SAT 98–100
--- NOTE | ~2021-07-30 | XR_ITS ---
XR cholangiogram surg 2nd inj DATE: 08/03/2021 13:43 INDICATION: Laparoscopic cholecystectomy TECHNIQUE: Multiple cine spot images of the right upper quadrant during laparoscopic injection of the cystic duct remnant 54.8 seconds fluoroscopy time 1.0 mGym2 COMPARISON: 08/02/19992009 ERCP 07/31/2021 MRI MRCP FINDINGS: At least one approximately 3 mm filling defect is noted within the common bile duct. Normal caliber of the common bile duct, left and right hepatic ducts and pancreatic duct. There is free casi w of contrast material into the duodenum from the common bile duct and pancreatic duct. IMPRESSION: Choledocholithiasis; no common bile duct obstruction Reviewed, dictated and finalized at [facility]. Reviewed, dictated and finalized at location [facility]. TENDER
--- NOTE | ~2021-07-30 | XR_ITS ---
XR ERCP DATE: 08/02/2021 13:34 INDICATION: Cholelithiasis TECHNIQUE: 3 spot images during ERCP 72.6 seconds fluoroscopy time 25.75 mGy COMPARISON: 07/31/2021 MR MRCP 07/31/2021 right upper quadrant ultrasound 07/24/2021 CT abdomen pelvis FINDINGS: The common bile duct, common hepatic duct and opacified hepatic ducts are of normal caliber . The pancreatic duct is of normal caliber. No obvious filling defect of the ducts is noted. IMPRESSION: Normal caliber of the bile ducts and pancreatic duct. Recommend correlation with ERCP rep ort Reviewed, dictated and finalized at [facility]. Reviewed, dictated and finalized at location [facility]. ER CLERK IMPRESSION: Normal caliber of the bile ducts and pancreatic duct. Recommend cor relation with ERCP report
--- NOTE | ~2021-07-30 | US_ITS ---
EXAMINATION: US right upper quadrant EXAM DATE: 07/31/2021 07:48 INDICATION: Right upper quadrant pain, radiating to back . TECHNIQUE: Multiple grayscale and Doppler images of the abdomen right upper quadrant were obtained (b y a technologist who performed the scan) and subsequently reviewed. Correlation is made to CT abdomen pelvis 07/24/2021. FINDINGS: The pancreatic head and body are normal in appearance. The pancreatic tail is not visualized. The l iver has normal echogenicity and contour. There are no focal liver lesions identified. There is no evidence of intrahepatic biliary duct dilation. Portal venous flow was seen in the hepatopedal, nor mal direction and has normal Doppler waveform. No right-sided hydronephrosis. Common bile duct measures 4 mm, which is normal. The gallbladder wall is normal in thickness, with ex pected amount of distention. No sonographic evidence of pericholecystic fluid. Multiple small galls tones. Technologist performing exam reports patient did not demonstrate sonographic Brandt's sign. Please note that this sign is less reliable in patients who have received pain medication. IMPRESSION: Cholelithiasis. Reviewed, dictated and finalized at location [facility]. STANT TRACK COACH IMPRESSION: Cholelithiasis.
--- NOTE | ~2021-07-30 | MR_ITS ---
EXAMINATION: MR MRCP wo/w con/w 3D wo ind DATE: 07/31/2021 12:55 INDICATION: Abnormal liver function tests. Right upper quadrant abdominal pain. Cholelithiasis. TECHNIQUE: Magnetic resonance imaging (MRI) of the abdomen was performed without and with 20 mL Multi Erin intravenous contrast. Sequences included coronal T2-weighted FS FSE, coronal T2-weighted FSE, a xial T1-weighted LAVA, coronal FS FIESTA, axial dual-echo T1-weighted SPGR, coronal lava-FLEX, sagitt al T2-weighted FSE, axial T2-weighted FSE, and axial DWI. Thick-slab T2-weighted FSE images were obta ined for magnetic resonance cholangiopancreatography (MRCP). Maximum intensity projection 3-D reconst ructions of the volumetric data were created by the technologist. Postcontrast sequences included cor onal LAVA-flex and time course of axial T1-weighted LAVA. COMPARISON: Abdomen ultrasound 07/31/2021, CT abdomen and pelvis 07/24/2021 FINDINGS: ABDOMEN MRI: The liver is normal. There are gallstones in the gallbladder, which is normal in size. T he spleen, pancreas, adrenal glands, and kidneys are normal. There are no dilated loops of bowel. The re are no pathologically enlarged lymph nodes. There is no free intraperitoneal fluid. The uterus is enlarged, consistent with recent . ABDOMEN MRCP: The common duct measures 5 mm in diameter. There are two 3 mm stones in the common bile duct. IMPRESSION: 1. Choledocholithiasis. 2. Cholelithiasis. No evidence of acute cholecystitis. Reviewed, dictated and finalized at location A. SING MACHINE OPERATOR
[2021-07-30 11:46] LABS: Basophils Percent Auto 0.4 % (0.2-1.2); Eosinophils Absolute Auto 0.1 K/mm3 (0-0.3); Eosinophils Percent Auto 1.2 % (0-4.4); Hematocrit 36.5 % (37.0-47.0); Immature Granulocyte Absolute 0.06 K/mm3 (0.00-0.031); Immature Granulocyte Percent A 0.7 % (0-0.5); Lymphocytes Absolute Auto 0.76 K/mm3 (0.9-3.2); Lymphocytes Percent Auto 8.3 % (18.3-44.2); Mean Corpuscular HGB Conc 30.1 g/dl (32-36); Mean Corpuscular Volume 76.2 fl (80-100); Monocytes Absolute Auto 0.4 K/mm3 (0.1-0.6); Monocytes Percent Auto 4.6 % (2.6-8.5); Neutrophils Absolute Auto 7.8 K/mm3 (1.3-6.7); Neutrophils Percent Auto 84.8 % (45.5-73.1); Platelet Count Result 522 k/mm3 (150-375); Red Blood Count 4.79 M/mm3 (4.2-5.4); White Blood Count 9.2 K/mm3 (4.5-10.0)
[2021-07-30 12:05] LABS: Alanine Aminotransferase 272 U/L (4-35); Albumin Level 3.9 g/dL (3.5-5.1); Alkaline Phosphatase 329 U/L (38-126); Anion Gap 12 mmol/L (8-16); Aspartate Amino Transferase 524 U/L (14-36); Blood Urea Nitrogen 19 mg/dL (7-17); Carbon Dioxide 20 mmol/L (22-30); Chloride 106 mmol/L (98-107); Estimated Glomerular Filt Rate > 60; Glucose 119 mg/dL (65-110); Sodium 138 mmol/L (137-145); Uric Acid 6.7 mg/dL (2.5-7.5)
--- NOTE | 2021-07-30 12:50 | PM.IMHP ---
H&P: HPI History of Present Illness Date/Time: 07/30/21 12:50 26 y/o two weeks postop after . Had an observation last week for preeclampsia. Woke up this morning with epigastric and RUQ pain that made her vomit. Tender in office. No edema. No headache. No visual field change. Incision fine. Chief Complaint: Pain Review of Systems Review of Systems: All systems reviewed & are unremarkable except as noted in HPI and below PMFSH Past Medical History Medical History Asthma affecting in third trimester Eczema GERD (gastroesophageal reflux disease) Obesity affecting in third trimester Surgical History Surgical History History of delivery Family History Family History Father Hypertension Sibling Asthma Grandparent Lung cancer Social History Social History Smoking status: Never smoker Substance use: never Spiritual care concerns: No Meds Home Medications and Allergies Home Medications Medication Instructions Recorded Confirmed Type famotidine [Pepcid] 40 mg PO DAILY 06/20/21 06/20/21 History prenat.vits,crystal,nwq-dpva-pvkzv 1 tablet PO DAILY 06/20/21 06/20/21 History hydrocodone-acetaminophen 1 - 2 tablet PO Q6H PRN #30 tablet 07/17/21 Rx ibuprofen 600 mg PO Q6H PRN #30 tablet 07/17/21 Rx ferrous sulfate 325 mg PO DAILY #30 tablet 07/18/21 Rx Allergies Allergy/AdvReac Type Severity Reaction Status Date / Time No Known Allergies Allergy Verified 06/20/21 12:20 Vital Signs Vital Signs - 24 hr 07/30/21 11:01 07/30/21 11:16 07/30/21 11:31 Pulse Rate 88 79 61 Blood Pressure 134/79 131/69 138/65 07/30/21 11:46 07/30/21 12:01 07/30/21 12:16 Pulse Rate 66 77 64 Blood Pressure 126/67 133/66 122/65 Exam Const: Orientation/consciousness: patient oriented x3 Other: Well-developed, well-nourished female in no acute distress. Neck: Thyroid: thyroid normal Lymphatic: no lymphadenopathy noted (in neck, axilla or inguinal nodes) Resp: Effort & Inspection: normal respiratory effort Auscultation: clear to auscultation bilaterally Cardio: Rate: regular rate Rhythm: regular rhythm Heart sounds: S1 normal heart sound present and S2 normal heart sound present GI: Other: ABD: Soft, nontender, nondistended. RUQ and epigastric tenderness to palpation. Fundus firm and involuting. Incision c/d/i. : General: Yes no CVA tenderness Other: Deferred. Back/Spine/Pelvis: Back: no CVA tenderness Skin: General skin exam: normal color and no rashes or lesions noted Neuro: General: patient oriented x3 Extrem: Other: Extremities: nontender with no edema Psych: Mental Status: mental status grossly normal Affect: normal affect H&P: Results Labs Labs: Short CBC 07/30/21 Range/Units 11:08 WBC 9.2 (4.5-10.0) K/mm3 Hgb 11.0 L (12.0-15.0) g/dL Hct 36.5 L (37.0-47.0) % Plt Count 522 H (150-375) k/mm3 BMP 07/30/21 11:08 Sodium 138 Potassium 4.0 Chloride 106 Carbon Dioxide 20 L BUN 19 H D Creatinine 0.80 Glucose 119 H Calcium 9.0 Liver Function 07/30/21 Range/Units 11:08 Total Bilirubin 1.0 (0.2-1.3) mg/dL AST 524 H (14-36) U/L ALT 272 H (4-35) U/L Alkaline Phosphatase 329 H (38-126) U/L Albumin 3.9 (3.5-5.1) g/dL Assessment and Plan Assessment and plan (1) Preeclampsia in period: Code(s): O14.95 - Unspecified pre-eclampsia, complicating the puerperium Status: Acute Assessment and Plan: A: preeclampsia. P: Admit for IV magnesium, repeat labs in AM.
[2021-07-30] MEDS: LACTATED RINGERS 1,000 ML 75 ML IV CONT (13:33)
[2021-07-30] MEDS: MAGNESIUM SULF 4 GM/WATER100ML 4 GM/100 ML BAG IVPB (13:34)
[2021-07-30] MEDS: MAGNESIUM SULF 20GM/WATER500ML 500 ML 50 MG IV CONT (14:00)
--- NOTE | 2021-07-30 14:14 | OBADM ---
This patient, Chacha Galindo, admitted to the OB room OB Post 116 for observation. Patient/family oriented to hospital policies and general routines including ID bracelet, bed and alarms, visiting hours, pain management, procedures, bathroom and other care routines, personal items, smoking policy, room service/diet, and visiting hours. Patient/Family are encouraged to report perceived risks to care and to ask questions if they do not understand what they are told or what they should do.
[2021-07-30] MEDS: MORPHINE SULFATE (*CRX) 2 MG/ML INJ IV PUSH (20:30)
[2021-07-30] MEDS: PANTOPRAZOLE 40 MG TABLET PO (21:00)
[2021-07-31] VITALS (13 sets, daily range): BP systolic 112–134; BP diastolic 55–78; PULSE 51–88; RESP 12–20; TEMP 36.1–37.1; O2SAT 98–100; BMI 45.8
[2021-07-31] MEDS: MAGNESIUM SULF 20GM/WATER500ML 500 ML 50 MG IV CONT (00:02)
[2021-07-31] MEDS: LACTATED RINGERS 1,000 ML 75 ML IV CONT (00:55)
[2021-07-31 05:42] LABS: Hematocrit 35.1 % (37.0-47.0); Hemoglobin 10.3 g/dL (12.0-15.0); Mean Corpuscular HGB Conc 29.3 g/dl (32-36); Mean Corpuscular Hemoglobin 22.7 pg (26-34); Mean Corpuscular Volume 77.3 fl (80-100); Mean Platelet Volume 9.7 fl (7.4-10.4); Platelet Count Result 452 k/mm3 (150-375); Red Blood Count 4.54 M/mm3 (4.2-5.4); Red Cell Distribution Width 16.9 % (11.5-14.5); White Blood Count 5.5 K/mm3 (4.5-10.0)
[2021-07-31 05:50] LABS: Alanine Aminotransferase 480 U/L (4-35); Albumin Level 3.5 g/dL (3.5-5.1); Alkaline Phosphatase 352 U/L (38-126); Anion Gap 5 mmol/L (8-16); Aspartate Amino Transferase 630 U/L (14-36); Bilirubin,Total 0.9 mg/dL (0.2-1.3); Blood Urea Nitrogen 12 mg/dL (7-17); Calcium 6.7 mg/dL (8.4-10.2); Carbon Dioxide 27 mmol/L (22-30); Chloride 102 mmol/L (98-107); Estimated Glomerular Filt Rate > 60; Glucose 123 mg/dL (65-110); Potassium 3.8 mmol/L (3.4-5.0); Sodium 134 mmol/L (137-145); Uric Acid 6.2 mg/dL (2.5-7.5)
--- NOTE | 2021-07-31 09:08 | PM.GYNPNOP ---
IMAGING TECHNICIAN - A/P Assessment and plan (1) Preeclampsia in period: Code(s): O14.95 - Unspecified pre-eclampsia, complicating the puerperium Status: Acute (2) Gallstones: Code(s): K80.20 - Calculus of gallbladder without cholecystitis without obstruction Status: Acute Assessment and Plan: A: Today it seems less likely that her symptoms are due to preeclampsia, and more likely due to gallbladder disease. P: Keep NPO and ask for surgery consultation. Will continue magnesium for now, but will consider stopping depending on surgery input. Time Spent With Patient Time with patient: 15 - 25 minutes IMAGING TECHNICIAN- PN:Subj Post-Op Subjective Date/time seen: 07/31/21 08:45 Had some pain requiring morphine last night, no pain now. Last week she was admitted for RUQ/midepigastric pain thought to represent preeclampsia, and her symptoms and labs improved with magnesium treatment. CT last week showed normal gallbladder. However, on this readmission, her pain has been intermittent and her transaminases have worsened. BP has been OK. Still with proteinuria and lower extremity edema. RUQ ultrasound today shows gallstones. WBC has been normal. She has been afebrile. She has been NPO since yesterday. Interval history: Pain OK. Tolerating diet. Voiding. Would like to go home. Review of Systems Review of Systems: All systems reviewed & are unremarkable except as noted in HPI and below Exam Narrative: AVSS I/O OK ABD soft, totally nontender today. Pfannenstiel incision c/d/i. EXT nontender, 1+ edema seems a little better today. NEURO: DTR 2/4 and symmetric in lower extremities. IMAGING TECHNICIAN - PN: Obj Data Vital Signs Vital Signs: Vital Signs - 24 hr 07/30/21 11:01 07/30/21 11:16 07/30/21 11:31 Temperature Pulse Rate 88 79 61 Respiratory Rate Blood Pressure 134/79 131/69 138/65 Pulse Oximetry 07/30/21 11:46 07/30/21 12:01 07/30/21 12:16 Temperature Pulse Rate 66 77 64 Respiratory Rate Blood Pressure 126/67 133/66 122/65 Pulse Oximetry 07/30/21 13:33 07/30/21 13:34 07/30/21 13:35 Temperature 36.7 C Pulse Rate 126 H Respiratory Rate 16 Blood Pressure 112/80 Pulse Oximetry 100 07/30/21 13:38 07/30/21 13:43 07/30/21 13:46 Temperature Pulse Rate 70 Respiratory Rate Blood Pressure 111/61 Pulse Oximetry 99 100 07/30/21 13:48 07/30/21 13:53 07/30/21 13:58 Temperature Pulse Rate Respiratory Rate Blood Pressure Pulse Oximetry 99 100 99 07/30/21 14:00 07/30/21 14:01 07/30/21 14:03 Temperature Pulse Rate 77 Respiratory Rate 16 Blood Pressure 117/56 L Pulse Oximetry 100 07/30/21 16:16 07/30/21 16:17 07/30/21 16:49 Temperature 37.0 C Pulse Rate 78 Respiratory Rate 16 Blood Pressure 130/69 Pulse Oximetry 98 07/30/21 20:00 07/30/21 20:02 07/30/21 20:03 Temperature 36.5 C Pulse Rate 100 Respiratory Rate 16 Blood Pressure 134/107 H Pulse Oximetry 100 07/30/21 20:05 07/30/21 20:34 07/30/21 20:46 Temperature Pulse Rate 91 80 76 Respiratory Rate Blood Pressure 139/76 134/69 144/73 H Pulse Oximetry 07/30/21 21:01 07/31/21 00:00 07/31/21 04:24 Temperature 36.2 C L 37.1 C Pulse Rate 75 69 68 Respiratory Rate 16 Blood Pressure 123/66 114/57 L 112/63 Pulse Oximetry 100 100 07/31/21 04:25 07/31/21 04:27 07/31/21 07:50 Temperature Pulse Rate 72 Respiratory Rate Blood Pressure 112/63 Pulse Oximetry 99 100 07/31/21 07:52 Temperature 36.1 C L Pulse Rate 61 Respiratory Rate 16 Blood Pressure 124/55 L Pulse Oximetry Intake/Output Intake/Output: Intake & Output 07/28/21 07/29/21 07/30/21 07/31/21 23:59 23:59 23:59 23:59 Intake Total 100 1500 Output Total 800 Balance 100 700 Meds/Results Medications: Active Medications Generic Name Dose Route Start Last Admin Trade Name Freq PRN Reason Stop Dose Admin Acet
--- NOTE | 2021-07-31 10:46 | PM.CNGS ---
Assessment and Plan Assessment and plan (1) Gallstones: Code(s): K80.20 - Calculus of gallbladder without cholecystitis without obstruction Status: Acute Assessment and Plan: Imaging reviewed and discussed with the patient in detail. CT scan showed a normal gallbladder and did not suggest any visualized cholelithiasis. RUQ US does show cholelithiasis, but no other abnormalities of the gallbladder and her common bile duct measures normal. Her epigastric and RUQ abdominal pain, along with her clinical presentation, would correlate with biliary colic or symptomatic cholelithiasis. She does not have any evidence of acute cholecystitis on imaging and her WBC count remains normal. Therefore, she does not have an indication for urgent cholecystectomy, but this could appropriately be considered. It is unclear why her AST and ALT remain elevated and actually increased since her recent observation stay. We will order an MRCP today just to rule out an obstructive pathology in her common bile duct, but you would expect some elevation in her bilirubin if this were the case. If there is no common bile duct stones or sludge, then we would recommend that she be advanced to a low fat diet. If she can tolerate a diet, then she could be discharged home and follow-up with Dr. Smith as an outpatient in about 2 weeks to try and electively plan for a laparoscopic cholecystectomy, possibly open, under general anesthesia. Description of the procedure, risks, benefits, expected outcomes, and expected recovery were discussed with the patient in detail. All questions were answered. I strongly encouraged her to follow a strict low fat diet to prevent any future attacks while trying to schedule surgery. I also instructed her to go back to the ER if she has any abdominal pain, vomiting, or fevers that occur once she is back home. I will add morning labs in case the patient stays overnight for observation. If she is discharged home, then we could repeat a CBC/CMP/lipase as an outpatient prior to scheduling her surgery. I will also add a lipase on this morning's labs. (2) Transaminitis: Code(s): R74.01 - Elevation of levels of liver transaminase levels Status: Acute Assessment and Plan: Significant elevation in AST, ALT, and alk phos. Total bilirubin has remained normal with all labs during the post- period. It does not appear that she has acute cholecystitis, which could account for her elevated liver enzymes. She has no evidence of hepatic steatosis on imaging. Her AST and ALT were normal prior to her delivery. With the normal bilirubin, it seems less likely that she would have choledocholithiasis, but this is another possibility. Will order an MRCP today to rule this out. If she has any sludge or stones in her common bile duct, then we would recommend a GI consultation for possible ERCP. If the MRCP is unremarkable, then we could proceed with the plan as mentioned above and trend her LFTs. Will also add a hepatitis panel to morning labs if she will be staying again overnight to be thorough. (3) Preeclampsia in period: Code(s): O14.95 - Unspecified pre-eclampsia, complicating the puerperium Status: Acute Assessment and Plan: Still receiving IV magnesium. Management per OBGYN. Will plan on collaborating with Dr. Kong regarding his recommendations of timing of her cholecystectomy following the preeclampsia. (4) delivery delivered: Code(s): O82 - Encounter for delivery without indication Status: Acute Assessment and Plan: POD#14 . Incision appears to be healing well. Management per OBGYN. (5) Obesity: Code(s): E66.9 - Obesity, unspecified Status: Acute Assessment and Plan: Encouraged following a low fat diet after discharge. Additional Plan I have discussed the patient's case and plan of care with Dr. Smith. Thank you for allowing us to see the patien
[2021-07-31 11:01] LABS: Lipase 97 U/L (23-300)
[2021-07-31] MEDS: MORPHINE SULFATE (*CRX) 2 MG/ML INJ IV PUSH ×2 (20:39→22:21)
--- NOTE | 2021-07-31 22:05 | PC.NURSE ---
called Dr. Finley and reported no relief of pain after morphine IV. okay to give additional dose now and repeat in two hours if the pain comes back
[2021-08-01] VITALS (11 sets, daily range): BP systolic 112–152; BP diastolic 42–82; PULSE 52–86; RESP 18–20; TEMP 36.6–37.2; O2SAT 98–100
[2021-08-01 05:19] LABS: Basophils Percent Auto 0.6 % (0.2-1.2); Eosinophils Absolute Auto 0.3 K/mm3 (0-0.3); Hematocrit 34.1 % (37.0-47.0); Hemoglobin 10.1 g/dL (12.0-15.0); Immature Granulocyte Absolute 0.02 K/mm3 (0.00-0.031); Immature Granulocyte Percent A 0.3 % (0-0.5); Lymphocytes Absolute Auto 1.46 K/mm3 (0.9-3.2); Lymphocytes Percent Auto 21.6 % (18.3-44.2); Mean Corpuscular HGB Conc 29.6 g/dl (32-36); Mean Corpuscular Hemoglobin 22.7 pg (26-34); Mean Corpuscular Volume 76.8 fl (80-100); Mean Platelet Volume 9.8 fl (7.4-10.4); Monocytes Absolute Auto 0.4 K/mm3 (0.1-0.6); Monocytes Percent Auto 6.4 % (2.6-8.5); Neutrophils Absolute Auto 4.5 K/mm3 (1.3-6.7); Neutrophils Percent Auto 66.1 % (45.5-73.1); Platelet Count Result 501 k/mm3 (150-375); Red Blood Count 4.44 M/mm3 (4.2-5.4); Red Cell Distribution Width 17.2 % (11.5-14.5); White Blood Count 6.8 K/mm3 (4.5-10.0)
[2021-08-01 05:50] LABS: Alanine Aminotransferase 470 U/L (4-35); Albumin Level 3.6 g/dL (3.5-5.1); Alkaline Phosphatase 432 U/L (38-126); Anion Gap 10 mmol/L (8-16); Aspartate Amino Transferase 488 U/L (14-36); Blood Urea Nitrogen 15 mg/dL (7-17); Calcium 8.4 mg/dL (8.4-10.2); Carbon Dioxide 23 mmol/L (22-30); Chloride 104 mmol/L (98-107); Estimated Glomerular Filt Rate > 60; Glucose 111 mg/dL (65-110); Potassium 3.8 mmol/L (3.4-5.0); Sodium 137 mmol/L (137-145)
[2021-08-01 06:35] LABS: Hepatitis B Surface Antigen Negative (Negative)
[2021-08-01 06:41] LABS: HAV RESULT Negative (Negative); Hepatitis B Core IgM Result Negative (Negative)
[2021-08-01 06:53] LABS: Hepatitis C Virus Antibody Negative (Negative)
--- NOTE | 2021-08-01 09:05 | P.PNOB_ITS ---
OB - PN: Subj Subjective Date/time seen: 08/01/21 09:05 Interval history: No pain currently. Tolerated diet yesterday. GI consultation today. Narrative: Pain OK. Tolerating diet. OB - PN: Obj Data Labs CBC & Chem 7: 08/01/21 04:45 08/01/21 04:45 Labs: Laboratory Results - last 24 hr 07/31/21 08/01/21 08/01/21 05:23 04:45 04:45 WBC 6.8 RBC 4.44 Hgb 10.1 L Hct 34.1 L MCV 76.8 L MCH 22.7 L MCHC 29.6 L RDW 17.2 H Plt Count 501 H MPV 9.8 Immature Gran % (Auto) 0.3 Neut % (Auto) 66.1 Lymph % (Auto) 21.6 [place] % (Auto) 6.4 Eos % (Auto) 5.0 H Baso % (Auto) 0.6 Lymph # (Auto) 1.46 [place] # (Auto) 0.4 Eos # (Auto) 0.3 Baso # (Auto) 0.0 Abs Immat Gran (auto) 0.02 Absolute Neuts (auto) 4.5 Absolute Nucleated RBC 0.0 Nucleated RBC % 0.0 Sodium Potassium Chloride Carbon Dioxide Anion Gap BUN Creatinine Estim Creat Clear Calc Estimated GFR Glucose Calcium Total Bilirubin AST ALT Alkaline Phosphatase Total Protein Albumin Lipase 97 Hepatitis A IgM Ab Negative Hep Bs Antigen Negative Hep B Core IgM Ab Negative Hepatitis C Ab Screen Negative 08/01/21 04:45 WBC RBC Hgb Hct MCV MCH MCHC RDW Plt Count MPV Immature Gran % (Auto) Neut % (Auto) Lymph % (Auto) [place] % (Auto) Eos % (Auto) Baso % (Auto) Lymph # (Auto) [place] # (Auto) Eos # (Auto) Baso # (Auto) Abs Immat Gran (auto) Absolute Neuts (auto) Absolute Nucleated RBC Nucleated RBC % Sodium 137 Potassium 3.8 Chloride 104 Carbon Dioxide 23 Anion Gap 10 BUN 15 Creatinine 0.80 Estim Creat Clear Calc Not Reportable Estimated GFR > 60 Glucose 111 H Calcium 8.4 Total Bilirubin 1.0 AST 488 H ALT 470 H Alkaline Phosphatase 432 H Total Protein 6.0 L Albumin 3.6 Lipase Hepatitis A IgM Ab Hep Bs Antigen Hep B Core IgM Ab Hepatitis C Ab Screen Imaging Radiologist's impression: Impressions OB - PN A/P Assessment and Plan (1) Gallstones: Code(s): K80.20 - Calculus of gallbladder without cholecystitis without obstruction Status: Acute Plan Comments: A: Choledocholithiasis / cholelithiasis in the period. P: GI consultation today. Appreciate input from GI and surgery! Exam Narrative: AVSS I/O OK ABD soft, nontender, fundus firm. Incision c/d/i. EXT nontender
[2021-08-01 09:25] LABS: Lipase 5724 U/L (23-300)
[2021-08-01] MEDS: LACTATED RINGERS 1,000 ML 100 ML IV CONT (09:42)
--- NOTE | 2021-08-01 10:05 | PM.PNGS ---
Progress Note: A&P Assessment and Plan (1) Cholelithiasis with choledocholithiasis: Code(s): K80.70 - Calculus of gallbladder and bile duct without cholecystitis without obstruction Status: Acute Assessment and Plan: Elevated AST, ALT, and alk phos. Total bilirubin remains normal. MRCP yesterday showed choledocholithiasis with cholelithiasis. Lipase now elevated to 5,000 today. Patient had more abdominal pain again last night. Discussed MRCP results with the patient this morning and again readdressed the timing of a cholecystectomy. We would recommended having the cholecystectomy sooner due to the findings of choledocholithiasis. It would be ideal for her to have surgery during this hospitalization following the ERCP depending on GI's recommendations and how she progresses. Awaiting GI consultation. Continue to trend labs and repeat lipase tomorrow again as well. (2) Transaminitis: Code(s): R74.01 - Elevation of levels of liver transaminase levels Status: Acute Assessment and Plan: AST and ALT down slightly this morning, alk phos increased slightly. Likely related to choledocholithiasis. GI consulted and awaiting recommendations. Trend labs. (3) Preeclampsia in period: Code(s): O14.95 - Unspecified pre-eclampsia, complicating the puerperium Status: Acute (4) delivery delivered: Code(s): O82 - Encounter for delivery without indication Status: Acute Assessment and Plan: POD#15 . Incision appears to be healing well. Management per OBGYN. (5) Obesity: Code(s): E66.9 - Obesity, unspecified Status: Acute Assessment and Plan: Encouraged following a low fat diet after discharge. Additional Plan I have discussed the plan of care with Dr. Smith. Subjective Subjective Date/Time Seen: 08/01/21 09:05 Patient reports: afebrile Interval history: Patient seen and examined this morning. She reports having a low-fat diet tray for dinner last night and her epigastric and right upper quadrant abdominal pain returned shortly after eating. She reports the pain has resolved into this morning as long as she is not eating. She has been NPO since midnight for possible ERCP. No other complaints at this time. Review of Systems Review of Systems: All systems reviewed & are unremarkable except as noted in HPI and below Exam Const: General: no acute distress, alert and awake Nutritional Appearance: obese Resp: Auscultation: clear to auscultation bilaterally Cardio: Rate: regular rate Rhythm: regular rhythm GI: Inspection: non-distended, incision (low suprapubic horizontal incision healing well without erythema, dry) and obesity GI Palp: Yes Soft to palpation, Yes Tenderness to palpation present (GI) (RUQ), No Guarding due to palpation present (GI) and No Rebound tenderness present Auscultation: normal bowel sounds Neuro: General: moves all extremities and no focal motor deficits Psych: Insight: Good insight present (Psych) Judgement: Good judgement present (Psych) Objective Data Vital Signs Vital Signs: Vital Signs - 24 hr 07/31/21 12:59 07/31/21 13:00 07/31/21 16:05 Temperature 98.1 F 98.1 F Pulse Rate 51 L Respiratory Rate 16 12 Blood Pressure 126/62 Pulse Oximetry 99 98 07/31/21 16:06 07/31/21 20:00 07/31/21 20:37 Temperature 98.2 F Pulse Rate 65 Respiratory Rate 20 Blood Pressure 122/64 Pulse Oximetry 98 07/31/21 20:38 08/01/21 00:00 08/01/21 04:46 Temperature 98.6 F Pulse Rate 77 86 Respiratory Rate 20 Blood Pressure 134/78 128/82 Pulse Oximetry 100 98 08/01/21 04:47 08/01/21 07:58 08/01/21 07:59 Temperature 98.8 F Pulse Rate 72 52 L 60 Respiratory Rate Blood Pressure 112/57 L 120/42 L 114/63 Pulse Oximetry Intake/Output Intake/Output: Intake & Output 07/29/21 07/30/21 07/31/21 08/01/21 23:59 23:59 23:59 23:59 Intake Tot
--- NOTE | 2021-08-01 13:43 | WPDGICN ---
Assessment and Plan Assessment and plan (1) Cholelithiasis with choledocholithiasis: Code(s): K80.70 - Calculus of gallbladder and bile duct without cholecystitis without obstruction Status: Acute Assessment and Plan: Patient with MRCP suggesting gallstones and choledocholithiasis. This appears to correlate with her abdominal pain as well as elevated LFTs. Plan to proceed with MRCP on . I have discussed this with Dr. Smith of surgery. Who will follow with this as she anticipates subsequent cholecystectomy (2) Transaminitis: Code(s): R74.01 - Elevation of levels of liver transaminase levels Status: Acute Assessment and Plan: patient has elevated LFTs. Primarily the a serum transaminases. This can be somewhat unusual with common bile duct gallstones but not unheard of. Plan to continue monitor LFTs. Gynecology service feels that this is unlikely to be related to preeclampsia at the present time (3) Gallstones: Code(s): K80.20 - Calculus of gallbladder without cholecystitis without obstruction Status: Acute (4) Obesity: Code(s): E66.9 - Obesity, unspecified Status: Acute (5) Preeclampsia in period: Code(s): O14.95 - Unspecified pre-eclampsia, complicating the puerperium Status: Acute Assessment and Plan: OB service following patient. Initially concern for preeclampsia is felt this is unlikely at this this patient. GI Consult Note Consult date/time: 08/01/21 13:43 HPI: Chacha Galindo is a 26 year old female I am asked to see because of choledocholithiasis. Patient is status post . She had a approximately 2 weeks ago. She did well for several days and subsequently developed right upper quadrant abdominal pain prompting her to go to the emergency room she was admitted for observation. CT scan at that time was essentially unremarkable. Pain improved but returned several days later prompting her to return to the emergency room. She was subsequently admitted the hospital. Gallbladder ultrasound did reveal small gallstones. She had modest elevation of her serum transaminases that has persisted. Initially felt to have preeclampsia this is subsequently been excluded. To further evaluate elevated LFTs and gallstones an MRCP performed yesterday suggested common bile duct gallstones. Patient currently states that she has no pain as long she does not eat. Should she had a diet she develops pain in the right upper quadrant epigastric area. She describes this as sharp and radiates directly through to her back. She denies any evidence for jaundice. Review of Systems Review of Systems: All systems reviewed & are unremarkable except as noted in HPI and below PMFSH Past Medical History Medical History Asthma affecting in third trimester Eczema GERD (gastroesophageal reflux disease) Obesity affecting in third trimester Surgical History Surgical History History of delivery 07/17/21 Family History Family History Father Hypertension Sibling Asthma Grandparent Lung cancer Social History Social History Smoking status: Never smoker Substance use: never Spiritual care concerns: No Meds Home Medications and Allergies Home Medications Medication Instructions Recorded Confirmed Type famotidine [Pepcid] 40 mg PO DAILY 06/20/21 07/30/21 History prenat.vits,crystal,[id number] 1 tablet PO DAILY 06/20/21 07/30/21 History hydrocodone-acetaminophen 1 - 2 tablet PO Q6H PRN #30 tablet 07/17/21 07/30/21 Rx ibuprofen 600 mg PO Q6H PRN #30 tablet 07/17/21 07/30/21 Rx ferrous sulfate 325 mg PO DAILY #30 tablet 07/18/21 07/30/21 Rx Allergies Aller
--- NOTE | 2021-08-01 14:00 | PC.NURSE ---
Dr. Toth was here to see pt. Pt sitting up on bed and states she would like to have some clear liquids. Appears comfortable at this time and declines any pain medication.
--- NOTE | 2021-08-01 14:21 | PC.NURSE ---
Dr. Smith at bedside, plan of care discussed with patient. Patient states understanding of plan of care and denies further questions. Patient will have full liquid low fat diet until midnight, she will be NPO starting at 0000 08/02/2021.
[2021-08-02] VITALS (18 sets, daily range): BP systolic 109–138; BP diastolic 48–83; PULSE 25–75; RESP 16–20; TEMP 36–37.7; O2SAT 87–100
[2021-08-02 05:11] LABS: Hematocrit 35.2 % (37.0-47.0); Hemoglobin 10.7 g/dL (12.0-15.0); Mean Corpuscular HGB Conc 30.4 g/dl (32-36); Mean Corpuscular Hemoglobin 23.3 pg (26-34); Mean Corpuscular Volume 76.5 fl (80-100); Mean Platelet Volume 9.8 fl (7.4-10.4); Platelet Count Result 471 k/mm3 (150-375); Red Cell Distribution Width 17.2 % (11.5-14.5); White Blood Count 6.4 K/mm3 (4.5-10.0)
[2021-08-02] MEDS: LACTATED RINGERS 1,000 ML 100 ML IV CONT (05:13)
[2021-08-02 05:22] LABS: Alanine Aminotransferase 297 U/L (4-35); Albumin Level 3.8 g/dL (3.5-5.1); Alkaline Phosphatase 355 U/L (38-126); Anion Gap 10 mmol/L (8-16); Aspartate Amino Transferase 92 U/L (14-36); Bilirubin,Total 0.4 mg/dL (0.2-1.3); Blood Urea Nitrogen 11 mg/dL (7-17); Calcium 9.1 mg/dL (8.4-10.2); Carbon Dioxide 23 mmol/L (22-30); Chloride 103 mmol/L (98-107); Estimated Glomerular Filt Rate > 60; Glucose 102 mg/dL (65-110); Lipase 151 U/L (23-300); Potassium 4.1 mmol/L (3.4-5.0); Sodium 136 mmol/L (137-145)
--- NOTE | 2021-08-02 09:06 | PM.GYNPNOP ---
[employer] - A/P Assessment and plan (1) Cholelithiasis with choledocholithiasis: Code(s): K80.70 - Calculus of gallbladder and bile duct without cholecystitis without obstruction Status: Acute Assessment and Plan: A: No pain. Labs improving. P: ERCP today. Appreciate GI and surgery input! Postoperative Procedures: Procedures Operation Date: 08/02/21 13:45 <No data on this case meets the specified criteria> Operation Date: 08/03/21 12:00 <No data on this case meets the specified criteria> Time Spent With Patient Time with patient: less than 15 minutes [employer]- PN:Subj Post-Op Subjective Date/time seen: 08/02/21 09:06 No pain. Scheduled for ERCP today. Exam Narrative: AVSS ABD soft, nontender, fundus firm. Incision c/d/i. EXT nontender [employer] - PN: Obj Data Vital Signs Vital Signs: Vital Signs - 24 hr 08/01/21 12:08 08/01/21 12:09 08/01/21 19:05 Temperature 37.2 C Pulse Rate 59 L 55 L Respiratory Rate 18 Blood Pressure 152/48 H 143/71 H Pulse Oximetry 100 08/01/21 19:06 08/01/21 19:30 08/02/21 00:00 Temperature 37.2 C 37.6 C Pulse Rate 74 Respiratory Rate 18 18 Blood Pressure 121/61 Pulse Oximetry 08/02/21 00:02 08/02/21 05:02 08/02/21 05:03 Temperature Pulse Rate 61 63 Respiratory Rate Blood Pressure 122/53 L 115/67 Pulse Oximetry 87 L 98 08/02/21 05:08 Temperature 37.7 C H Pulse Rate Respiratory Rate 18 Blood Pressure Pulse Oximetry Intake/Output Intake/Output: Intake & Output 07/30/21 07/31/21 08/01/21 08/02/21 23:59 23:59 23:59 23:59 Intake Total 100 2750 1000 Output Total 1900 900 500 Balance 100 850 100 -500 Meds/Results Medications: Active Medications Generic Name Dose Route Start Last Admin Trade Name Freq PRN Reason Stop Dose Admin Hydrocodone Bitart/Acetaminophen 1 tab 08/02/21 08:17 Hydrocodone/Acetaminophen (*Crx) 5-325 Mg Tablet PO Q6H PRN Pain Rated 4-6 Lactated Ringer's 1,000 mls @ 100 mls/hr 08/01/21 09:15 08/02/21 05:13 Lr - Lactated Ringers Iv IV CONT 100 mls/hr .Q10H DALI Administration Acetaminophen 1,000 mg in 100 mls @ 400 mls/hr 08/02/21 08:15 Ofirmev 1,000 Mg Ivpb IVPB 08/03/21 08:14 Q6H PRN Pain Rated 1-3 Morphine Sulfate 2 mg 08/02/21 08:18 Morphine Sulfate (*Crx) 2 Mg/Ml Inj IV PUSH Q4H PRN Pain Rated 4-6 Morphine Sulfate 4 mg 08/02/21 08:18 Morphine Sulfate (*Crx) 4 Mg/Ml Inj IV PUSH Q4H PRN Pain Rated 7-10 Ondansetron HCl 4 mg 07/30/21 14:11 Ondansetron Hcl Odt 4 Mg Tablet PO Q6H PRN Nausea And Vomiting Radiology Results: ITS Impressions Upper Quadrant Ultrasound 07/31/21 08:03 IMPRESSION: Cholelithiasis. MRCP 07/31/21 13:07 IMPRESSION: 1. Choledocholithiasis. 2. Cholelithiasis. No evidence of acute cholecystitis. Labs CBC & Chem 7: 08/02/21 05:03 08/02/21 05:03 Labs: Laboratory Results - last 24 hr 08/01/21 08/02/21 08/02/21 04:45 05:03 05:03 WBC 6.4 RBC 4.60 Hgb 10.7 L Hct 35.2 L MCV 76.5 L MCH 23.3 L MCHC 30.4 L RDW 17.2 H Plt Count 471 H MPV 9.8 Sodium 136 L Potassium 4.1 Chloride 103 Carbon Dioxide 23 Anion Gap 10 BUN 11 Creatinine 0.70 Estim Creat Clear Calc Not Reportable Estimated GFR > 60 Glucose 102 Calcium 9.1 Total Bilirubin 0.4 AST 92 H ALT 297 H Alkaline Phosphatase 355 H Total Protein 6.0 L Albumin 3.8 Lipase 5724 H 151
--- NOTE | 2021-08-02 11:13 | WPDANESEPPF ---
Anes - Initial Pre Proc Eval Procedure: Operation Date: 08/02/21 13:45 Proposed Procedures p Endoscopic Retro Cholangiopancreatogram - Mele Toth MD Operation Date: 08/03/21 12:00 Proposed Procedures p Laparoscopic Cholecystectomy with Intra Operative Cholangiogram, Possible Open - Timur Smith MD Date/Time: 08/02/21 11:13 Surgeon: Emeterio Kong MD Pre Op Diagnosis: PP PIH Labs Patient Data Age: 26 Gender: F Height: 1.5 m Weight: 103 kg Last Vital Signs Temp 98.2 F 08/02/21 10:04 Pulse 69 08/02/21 10:04 Resp 18 08/02/21 10:04 BP 133/70 08/02/21 10:04 Pulse Ox 98 08/02/21 05:02 Allergies Allergy/AdvReac Type Severity Reaction Status Date / Time No Known Allergies Allergy Verified 08/02/21 12:03 Home Medications Medication Instructions Recorded Confirmed Type famotidine [Pepcid] 40 mg PO DAILY 06/20/21 07/30/21 History prenat.vits,crystal,[id number] 1 tablet PO DAILY 06/20/21 07/30/21 History hydrocodone-acetaminophen 1 - 2 tablet PO Q6H PRN #30 tablet 07/17/21 07/30/21 Rx ibuprofen 600 mg PO Q6H PRN #30 tablet 07/17/21 07/30/21 Rx ferrous sulfate 325 mg PO DAILY #30 tablet 07/18/21 07/30/21 Rx Laboratory Tests 08/02/21 08/02/21 05:03 05:03 WBC 6.4 K/mm3 K/mm3 (4.5-10.0) RBC 4.60 M/mm3 M/mm3 (4.2-5.4) Hgb 10.7 g/dL L g/dL (12.0-15.0) Hct 35.2 % L % (37.0-47.0) MCV 76.5 fl L fl (80-100) MCH 23.3 pg L pg (26-34) MCHC 30.4 g/dl L g/dl (32-36) RDW 17.2 % H % (11.5-14.5) Plt Count 471 k/mm3 H k/mm3 (150-375) MPV 9.8 fl fl (7.4-10.4) Sodium 136 mmol/L L mmol/L (137-145) Potassium 4.1 mmol/L mmol/L (3.4-5.0) Chloride 103 mmol/L mmol/L (98-107) Carbon Dioxide 23 mmol/L mmol/L (22-30) Anion Gap 10 mmol/L mmol/L (8-16) BUN 11 mg/dL mg/dL (7-17) Creatinine 0.70 mg/dL mg/dL (0.7-1.0) Estim Creat Clear Calc Not Reportable Estimated GFR > 60 (59 - ) Glucose 102 mg/dL mg/dL (65-110) Calcium 9.1 mg/dL mg/dL (8.4-10.2) Total Bilirubin 0.4 mg/dL mg/dL (0.2-1.3) AST 92 U/L H U/L (14-36) ALT 297 U/L H U/L (4-35) Alkaline Phosphatase 355 U/L H U/L (38-126) Total Protein 6.0 g/dL L g/dL (6.3-8.2) Albumin 3.8 g/dL g/dL (3.5-5.1) Lipase 151 U/L U/L (23-300) Patient hx anesthesia problems: none Family hx anesthesia problems: none Results Review: All pre-operative results and documents have been reviewed as part of the pre-operative evaluation. [facility] Past Medical History Medical History Asthma affecting in third trimester Eczema GERD (gastroesophageal reflux disease) Obesity affecting in third trimester Surgical History Surgical History History of delivery 07/17/21 Family History Family History Father Hypertension Sibling Asthma Grandparent Lung cancer Social History Social History Smoking status: Never smoker Substance use: never Spiritual care concerns: No Anes - Eval Final PreProcedure Day of Procedure 08/02/21 11:13 Patient weight: morbidly obese Heart: regular rate and rhythm Lungs: clear to auscultation Airway: Mallampati scale class II Neurological: alert and oriented Last oral intake: >/= 8 hours ASA classification: III Emergent: no Anesthetic plan: proceed Anesthesia type and monitoring: general ETT and standard monitoring Results Review: All pre-operative results and documents have been reviewed as part of the pre-operative evaluation. Informed Consent: The patient's anesthetic plan and its attendant risks and benefits were discussed with th
--- NOTE | 2021-08-02 11:45 | PC.NURSE ---
Pt taken to GI lab per wheelchair.
[2021-08-02] MEDS: LACTATED RINGERS 1,000 ML 150 ML IV CONT (12:08)
--- NOTE | 2021-08-02 14:53 | PM.PNGS ---
Progress Note: A&P Assessment and Plan (1) Cholelithiasis with choledocholithiasis: Code(s): K80.70 - Calculus of gallbladder and bile duct without cholecystitis without obstruction Status: Acute Assessment and Plan: LFTs trending down. Lipase normal today. S/p ERCP today, which was successful. No stones in CBD, sphincterotomy performed. Will plan a laparoscopic cholecystectomy, possible open, by Dr. Smith tomorrow. She had no further questions regarding surgery today. NPO after midnight. (2) Transaminitis: Code(s): R74.01 - Elevation of levels of liver transaminase levels Status: Acute Assessment and Plan: Continue to trend down. See plan above. (3) Preeclampsia in period: Code(s): O14.95 - Unspecified pre-eclampsia, complicating the puerperium Status: Acute (4) delivery delivered: Code(s): O82 - Encounter for delivery without indication Status: Acute (5) Obesity: Code(s): E66.9 - Obesity, unspecified Status: Acute Assessment and Plan: Encouraged following a low fat diet after discharge. (6) Mother currently breast-feeding: Code(s): Z39.1 - Encounter for care and examination of lactating mother Status: Acute Assessment and Plan: Discussed with the patient that should talk to anesthesia regarding recommendations for pumping and dumping following surgery. Also discussed the effects of Cinebar following surgery for mother and baby if she requires a stronger pain medication for post-op pain. Additional Plan I have discussed the plan of care with Dr. Smith. Subjective Subjective Date/Time Seen: 08/02/21 14:53 Patient reports: no new complaints, feels better and afebrile Interval history: Patient seen and examined. She denies any abdominal pain, nausea, or vomiting today. She is s/p ERCP and is doing well other than the complaint of an expected slightly sore throat. No other complaints at this time. Review of Systems Review of Systems: All systems reviewed & are unremarkable except as noted in HPI and below Exam Const: General: comfortable, no acute distress, alert and awake Nutritional Appearance: obese Resp: Effort & Inspection: able to speak in complete sentences Auscultation: clear to auscultation bilaterally Cardio: Rate: regular rate Rhythm: regular rhythm GI: Inspection: non-distended, incision (low suprapubic horizontal incision healing well without erythema, dry) and obesity GI Palp: Yes Soft to palpation, No Tenderness to palpation present (GI), No Guarding due to palpation present (GI) and No Rebound tenderness present Auscultation: normal bowel sounds Neuro: General: moves all extremities and no focal motor deficits Extrem: General: normal to inspection and no calf tenderness Psych: Mental Status: mental status grossly normal Insight: Good insight present (Psych) Judgement: Good judgement present (Psych) Objective Data Vital Signs Vital Signs: Vital Signs - 24 hr 08/01/21 19:05 08/01/21 19:06 08/01/21 19:30 Temperature 99.0 F Pulse Rate 74 Respiratory Rate 18 Blood Pressure 121/61 Pulse Oximetry 100 08/02/21 00:00 08/02/21 00:02 08/02/21 05:02 Temperature 99.6 F Pulse Rate 61 Respiratory Rate 18 Blood Pressure 122/53 L Pulse Oximetry 87 L 98 08/02/21 05:03 08/02/21 05:08 08/02/21 10:04 Temperature 99.8 F H 98.2 F Pulse Rate 63 69 Respiratory Rate 18 18 Blood Pressure 115/67 133/70 Pulse Oximetry 08/02/21 12:04 08/02/21 13:25 08/02/21 13:35 Temperature 97.6 F 98.3 F Pulse Rate 75 64 67 Respiratory Rate 16 17 17 Blood Pressure 134/64 133/76 129/83 Pulse Oximetry 98 100 100 08/02/21 13:45 08/02/21 13:55 08/02/21 14:05 Temperature Pulse Rate 71 57 L 55 L Respiratory Rate 19 18 19 Blood Pressure 133/75 138/79 118/65 Pulse Oximetry 100 100 100 08/02/21 14:14 08/02/21 14:28
[2021-08-03] VITALS (21 sets, daily range): BP systolic 110–175; BP diastolic 57–92; PULSE 54–76; RESP 14–18; TEMP 36.4–37.2; O2SAT 97–100
[2021-08-03] MEDS: LACTATED RINGERS 1,000 ML 100 ML IV CONT ×2 (00:24→15:56)
[2021-08-03] MEDS: MORPHINE SULFATE (*CRX) 2 MG/ML INJ IV PUSH (04:53)
[2021-08-03 07:52] LABS: Lipase 80 U/L (23-300)
--- NOTE | 2021-08-03 08:38 | PM.OBPNVD ---
OB - PN: Subj Subjective Date/time seen: 08/03/21 08:38 Interval history: No pain currently. Plan is for lap felice today. ERCP yesterday. OB - PN: Obj Data Labs CBC & Chem 7: 08/02/21 05:03 08/02/21 05:03 Labs: Laboratory Results - last 24 hr 08/03/21 07:16 Lipase 80 Imaging Radiologist's impression: Impressions Endo Retro Cholangiopancreatogram 08/02/21 20:49 IMPRESSION: Normal caliber of the bile ducts and pancreatic duct. Recommend correlation with ERCP report OB - PN A/P Assessment and Plan (1) Cholelithiasis with choledocholithiasis: Code(s): K80.70 - Calculus of gallbladder and bile duct without cholecystitis without obstruction Status: Acute Assessment and Plan: Lap felice today. Plan to send home when OK with general surgery.
[2021-08-03 09:59] LABS: Alanine Aminotransferase 223 U/L (4-35); Albumin Level 3.6 g/dL (3.5-5.1); Alkaline Phosphatase 425 U/L (38-126); Anion Gap 5 mmol/L (8-16); Aspartate Amino Transferase 131 U/L (14-36); Bilirubin,Total 0.3 mg/dL (0.2-1.3); Blood Urea Nitrogen 9 mg/dL (7-17); Calcium 8.9 mg/dL (8.4-10.2); Carbon Dioxide 26 mmol/L (22-30); Chloride 105 mmol/L (98-107); Estimated Glomerular Filt Rate > 60; Glucose 113 mg/dL (65-110); Potassium 4.1 mmol/L (3.4-5.0); Sodium 136 mmol/L (137-145)
--- NOTE | 2021-08-03 10:52 | WPDANESEFPP ---
Anes - Eval Final PreProcedure Day of Procedure 08/03/21 10:52 Patient weight: morbidly obese Heart: regular rate and rhythm Lungs: clear to auscultation Airway: Mallampati scale class II Neurological: alert and oriented Last oral intake: >/= 8 hours ASA classification: III Emergent: no Anesthetic plan: proceed Anesthesia type and monitoring: general ETT and standard monitoring Results Review: All pre-operative results and documents have been reviewed as part of the pre-operative evaluation. Informed Consent: The patient's anesthetic plan and its attendant risks and benefits were discussed with the patient/family/POA. Questions were solicited and answers provided to the satisfaction of the patient/family/POA.
--- NOTE | 2021-08-03 11:02 | WPDHPUPDATE1 ---
History and Physical Update Update Date/Time: 08/03/21 11:02 History and Physical has been reviewed, including an updated exam of the patient. There are changes in the patient's condition. During this hospitalization, ultrasound showed small stones in the gallbladder had MRCP showed 2 small stones in the distal common bile duct. Yesterday patient had ERCP with sphincterotomy and balloon sweep. Stones probably already passed as there were known none present then. Patient this morning is fairly pain free. We plan to proceed with laparoscopic cholecystectomy, probable IOC, and possible open cholecystectomy to remove the source of the previous obstruction and liver function abnormalities. Risks, benefits, and alternatives have been discussed and questions answered. Patient agrees to proceed with procedure.
[2021-08-03] MEDS: LACTATED RINGERS 1,000 ML 30 ML IV CONT ×2 (11:35→14:23)
[2021-08-03] MEDS: ceFAZolin 2 GM/D5W 50 ML 2 GM/50 ML BAG IVPB (12:06)
[2021-08-03] MEDS: BUPIVACAINE/EPINEPHRINE 0.5% 30 ML VIAL INFILTRATE (12:34)
--- NOTE | 2021-08-03 14:35 | W.PM.PROC2 ---
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 Patient had gallstones on her ultrasound that were small. Because of liver enzyme elevation she had an MRCP which did show 2 small stones in the distal common duct. Subsequently yesterday 08/02/2021 she had ERCP with sphincterotomy and balloon sweep of the common bile duct. No stones were seen. However, overnight she had 1 episode of pain and took some pain medicine about 5:00 a.m.. She was able to tolerate of low-fat diet last evening. Liver function tests were still slightly elevated except a normal bilirubin. Lipase was normal this morning also. In order to remove the source of the stones we proceeded with laparoscopic cholecystectomy in order to be sure that there were not still residual stones a cholangiogram was recommended and done. Findings Fairly normal appearing gallbladder other than there did appear to be mild edema of the wall during dissection. There were palpable small stones within the gallbladder that we could see move when grasping with the laparoscopic graspers. The cystic duct was slightly tortuous in fairly long. Cystic artery was branch right at the cystic duct with a posterior larger branch and a smaller anterior branch. Cholangiogram revealed what appeared to be an adherent 4 mm stone midway between the cystic duct connection to the above the bile duct and the sphincter of OD. I tried to flush this with 20 cc of saline several times (total 70 cc) but this did not move. So was unable to clear the common duct. Description of Procedure Procedure Details: Patient was seen preoperatively in the holding area and risks, benefits and alternatives confirmed. Patient was taken to the operating room and general anesthesia was induced. A time out was then preformed with the surgery team confirming patient and site of surgery. The abdomen was prepped and draped in the usual sterile fashion. Incision was made just below the umbilicus. Two stay sutures of O- Vicryl were used to elevate the mid-line fascia beneath the umbilicus and a small incision was made under direct vision. The peritoneum was entered. The 12 mm Gregory cannula was introduced under direct vision. First under low flow and then under high flow the abdomen was insufflated with carbon dioxide never exceeding a pressure of 14. Three 5 mm trocars were then introduced under direct vision. The following trocars were introduced under direct vision: a mm in the epigastrium and two 5 mm trocars along the right costal margin. There were no significant adhesions to the gallbladder The gall bladder was grasped and the cystic duct and artery were dissected free and I carefully identified a window of safety with only two other structures in the area being the cystic duct and the cystic artery. I then used a 5 mm endo-clip lead cytogenetic technologist to place 2 clips on the patient's side 1 on the gallbladder side on the cystic artery and just 1 clip on the gallbladder side of the cystic duct. A small hole was made in the cystic duct with endoshears and a cholagio-cath introduced. This was held in place with two 5 mm clips. A cholangiogram was obtained revealing free flow into the cystic duct, common bile duct, common hepatic, right and left hepatic ducts with free flow into the duodenum with one small about 4mm filling defect in the extrahepatic biliary tree and no dilation. After seeing this I flushed with 20 cc of saline about 4 different times and did a 2nd, 3rd, and 4th runs to see if we could make this small defect move on through the known sphincterotomy. However, it stayed in the same place through all 4 runs of the cholangiogram. I discussed
--- NOTE | 2021-08-03 14:44 | SUR.PHASEI ---
Simple mask removed at 1443.
[2021-08-03] MEDS: ONDANSETRON INJ 4 MG/2 ML VIAL IV PUSH (15:56)
[2021-08-03] MEDS: HYDROcodone/acetaminophen (*CRX) 7.5-325 MG TABLET 1 TAB PO (16:47)
--- NOTE | 2021-08-03 17:17 | PC.NURSE ---
Patient very tearful, states that she is frustrated and wanting to be home and feel better. States that pain is doing better. Encouragement given.
--- NOTE | 2021-08-03 21:00 | PC.NURSE ---
RN at bedside for routine vital signs and scheduled medication. Pt on her phone. PT stated her back was sore from maybe being in the bed so long. RN suggested the KPAD. Pt verbalized agreement and also requested Tylenol. Pt also requested some jello and ice chips. PT tolerated jello and denied any further needs.
[2021-08-03] MEDS: SENNA/DOCUSATE SODIUM TABLET 2 TAB PO (21:08)
[2021-08-03] MEDS: ACETAMINOPHEN 500 MG TABLET 1000 MG PO (21:08)
[2021-08-04] MEDS: HYDROcodone/acetaminophen (*CRX) 7.5-325 MG TABLET 1 TAB PO ×2 (00:02→10:15)
[2021-08-04 00:07] VITALS: RESP 18; TEMP 36.9
--- NOTE | 2021-08-04 00:09 | PC.NURSE ---
RN at bedside to do routine vital signs. Pt in bed watching TV. Pt requested medication because she was getting sore . Pt requested some pudding and fresh ice water. PT tolerated pudding. No further needs at this time.
[2021-08-04] MEDS: LACTATED RINGERS 1,000 ML 100 ML IV CONT (01:59)
[2021-08-04] MEDS: ACETAMINOPHEN 500 MG TABLET 1000 MG PO (03:11)
[2021-08-04 03:15] VITALS: PULSE 69; RESP 16; TEMP 36.7
[2021-08-04 03:16] VITALS: BP 127/50; PULSE 51; PULSE 77; O2SAT 98
[2021-08-04 05:18] LABS: Hematocrit 32.1 % (37.0-47.0); Hemoglobin 9.9 g/dL (12.0-15.0); Mean Corpuscular HGB Conc 30.8 g/dl (32-36); Mean Corpuscular Hemoglobin 23.4 pg (26-34); Mean Corpuscular Volume 75.9 fl (80-100); Mean Platelet Volume 9.8 fl (7.4-10.4); Platelet Count Result 436 k/mm3 (150-375); Red Blood Count 4.23 M/mm3 (4.2-5.4); Red Cell Distribution Width 17.2 % (11.5-14.5); White Blood Count 7.2 K/mm3 (4.5-10.0)
[2021-08-04 05:35] LABS: Alanine Aminotransferase 162 U/L (4-35); Albumin Level 3.4 g/dL (3.5-5.1); Alkaline Phosphatase 374 U/L (38-126); Anion Gap 4 mmol/L (8-16); Aspartate Amino Transferase 82 U/L (14-36); Bilirubin,Total 0.3 mg/dL (0.2-1.3); Blood Urea Nitrogen 7 mg/dL (7-17); Calcium 8.8 mg/dL (8.4-10.2); Carbon Dioxide 26 mmol/L (22-30); Chloride 104 mmol/L (98-107); Estimated Glomerular Filt Rate > 60; Glucose 109 mg/dL (65-110); Potassium 3.8 mmol/L (3.4-5.0); Sodium 134 mmol/L (137-145)
[2021-08-04 05:58] LABS: Lipase 61 U/L (23-300)
[2021-08-04 07:35] VITALS: RESP 16; TEMP 37.2
[2021-08-04 07:36] VITALS: BP 127/66; PULSE 66
--- NOTE | 2021-08-04 07:36 | PM.DS ---
DS: Admitting Diagnosis Discharge Date 08/04/2021 Admitting Diagnosis cholelithiasis/ / pancreatitis DS: Summary Hospital Course Hospital Course: S this patient is patient who was admitted for the 3rd time with elevated liver functions elevated blood pressure and signs of pancreatitis. She been treated for -induced hypertension . She underwent imaging and workup which revealed coli lithiasis. A 120 Hg underwent cholecystectomy with Dr. Smith which appeared to be unremarkable. Her postop course was unremarkable. She remained afebrile. She was up, eating without difficulty, ambulating, generally without complaints. Time Spent with Patient Time attestation: Total time spent providing and/or coordinating discharge services: Exam Const: General: no acute distress Eyes: General: appearance normal, both eyes and all related structures Neck: Neck: supple and no JVD Thyroid: thyroid normal Resp: Effort & Inspection: normal respiratory effort Auscultation: clear to auscultation bilaterally Cardio: Rate: regular rate Rhythm: regular rhythm GI: Inspection: non-distended GI Palp: Yes Soft to palpation, No Tenderness to palpation present (GI) and No Guarding due to palpation present (GI) Auscultation: normal bowel sounds : General: Yes bladder normal to palpation External Female Exam: normal external appearance Speculum Exam - Vagina: normal vaginal discharge and No vaginal bleeding Speculum Exam - Cervix: nontender Bimanual exam- vagina & uterus: bladder normal to palpation and No Cervical tenderness present OB/external & speculum: No vaginal bleeding Skin: General skin exam: no rashes or lesions noted Extrem: General: normal to inspection and no edema Psych: Mental Status: mental status grossly normal Affect: normal affect DS: Data Data Completed and Pending Pending studies at discharge: Pending at discharge 08/03/21 12:52 Surgical [PTH] Routine Labs on day of discharge: Labs from last 24 hours 08/04/21 08/04/21 08/04/21 05:05 05:04 05:04 WBC 7.2 RBC 4.23 Hgb 9.9 L Hct 32.1 L MCV 75.9 L MCH 23.4 L MCHC 30.8 L RDW 17.2 H Plt Count 436 H Cancelled MPV 9.8 Cancelled % Immature Plt Fraction Cancelled Sodium 134 L Potassium 3.8 Chloride 104 Carbon Dioxide 26 Anion Gap 4 L BUN 7 Creatinine 0.80 Estim Creat Clear Calc Not Reportable Estimated GFR > 60 Glucose 109 Calcium 8.8 Total Bilirubin 0.3 AST 82 H ALT 162 H Alkaline Phosphatase 374 H Total Protein 6.0 L Albumin 3.4 L Lipase 61 08/03/21 07:16 WBC RBC Hgb Hct MCV MCH MCHC RDW Plt Count MPV % Immature Plt Fraction Sodium 136 L Potassium 4.1 Chloride 105 Carbon Dioxide 26 Anion Gap 5 L BUN 9 Creatinine 0.80 Estim Creat Clear Calc Not Reportable Estimated GFR > 60 Glucose 113 H Calcium 8.9 Total Bilirubin 0.3 AST 131 H ALT 223 H Alkaline Phosphatase 425 H Total Protein 6.0 L Albumin 3.6 Lipase 80 Discharge Plan Discharge Attending physician on discharge: Emeterio Kong Consulting providers: Mele Toth ; Timur Smith Discharging Clinician: Emeterio Kong Patient Disposition: Home, Self-Care Activity: may shower and pelvic rest Diet: low fat Wound Care Instructions: follow printed instructions and incision open to air Discharge Instructions: Call or return if temperature above 100.4? F, increased abdominal pain, increased vaginal bleeding or any new problems. DISCHARGE INSTRUCTION SHEET FOR HERNIA AND LAP TOM SURGERIES DR. SMITH PATIENT TO TAKE HOME 1. May shower the day after surgery over incisions. 2. Call office for: Sushma
--- NOTE | 2021-08-04 07:40 | PM.GYNPNOP ---
PAID SEARCH MANAGER - A/P Postoperative Procedures: Procedures Operation Date: 08/02/21 13:45 Actual Procedure Side Surgeon p Endoscopic Retro Cholangiopancreatogram with Sphinterotomy and balloon sweep Mele Toth MD Operation Date: 08/03/21 12:00 Actual Procedure Side Surgeon p Laparoscopic Cholecystectomy with Intra Operative Cholangiograms Not Applicable Timur Smith MD Time Spent With Patient Time: Total time spent is greater than 50% in coordination of care (as documented) at patient's floor/unit and/or counseling patient: Time with patient: less than 15 minutes PAID SEARCH MANAGER- PN:Subj Post-Op Subjective Date/time seen: 08/04/21 07:40 Interval history: No pain currently. Plan is for lap felice today. ERCP yesterday. Subjective: patient reports feeling better, patient desires discharge and pain is well controlled Review of Systems Review of Systems: All systems reviewed & are unremarkable except as noted in HPI and below Exam Const: General: no acute distress Eyes: General: appearance normal, both eyes and all related structures Neck: Neck: supple and no JVD Thyroid: thyroid normal Resp: Effort & Inspection: normal respiratory effort Auscultation: clear to auscultation bilaterally Cardio: Rate: regular rate Rhythm: regular rhythm GI: Inspection: non-distended GI Palp: Yes Soft to palpation, No Tenderness to palpation present (GI) and No Guarding due to palpation present (GI) Auscultation: normal bowel sounds : General: Yes bladder normal to palpation External Female Exam: normal external appearance Speculum Exam - Vagina: normal vaginal discharge and No vaginal bleeding Speculum Exam - Cervix: nontender Bimanual exam- vagina & uterus: bladder normal to palpation and No Cervical tenderness present OB/external & speculum: No vaginal bleeding Skin: General skin exam: no rashes or lesions noted Extrem: General: normal to inspection and no edema Psych: Mental Status: mental status grossly normal Affect: normal affect PAID SEARCH MANAGER - PN: Obj Data Vital Signs Vital Signs: Vital Signs - 24 hr 08/03/21 11:00 08/03/21 14:23 08/03/21 14:35 Temperature 98.4 F 97.5 F L Pulse Rate 56 L 75 73 Respiratory Rate 16 18 14 Blood Pressure 112/84 140/58 L 145/70 H Pulse Oximetry 100 100 100 08/03/21 14:50 08/03/21 15:05 08/03/21 15:15 Temperature 98.0 F Pulse Rate 67 58 L Respiratory Rate 16 14 Blood Pressure 146/68 H 151/78 H Pulse Oximetry 97 97 08/03/21 15:25 08/03/21 15:31 08/03/21 15:46 Temperature Pulse Rate 66 63 58 L Respiratory Rate Blood Pressure 145/88 H 134/67 147/84 H Pulse Oximetry 08/03/21 16:01 08/03/21 16:16 08/03/21 16:31 Temperature Pulse Rate 54 L 66 62 Respiratory Rate Blood Pressure 140/68 149/73 H 175/92 H Pulse Oximetry 08/03/21 16:46 08/03/21 17:01 08/03/21 17:15 Temperature Pulse Rate 76 63 71 Respiratory Rate Blood Pressure 146/85 H 162/80 H 138/72 Pulse Oximetry 08/03/21 20:07 08/03/21 20:09 08/03/21 23:58 Temperature 98.9 F Pulse Rate 54 L 54 L 59 L Respiratory Rate 18 Blood Pressure 132/61 131/57 L Pulse Oximetry 08/04/21 00:07 08/04/21 03:15 08/04/21 03:16 Temperature 98.5 F 98.1 F Pulse Rate 69 51 L Respiratory Rate 18 16 Blood Pressure 127/50 L Pulse Oximetry 98 08/04/21 07:36 Temperature Pulse Rate 66 Respiratory Rate Blood Pressure 127/66 Pulse Oximetry Intake/Output Intake/Output: Intake & Output 08/01/21 08/02/21 08/03/21 08/04/21 23:59 23:59 23:59 23:59 Intake Total 1000 1000 1350 700 Output Total 787 144 4053 1000 Balance 100 500 -1600 -300 Meds/Results Medications: Active Medications Generic Name Dose Route Start Last Admin Trade Name Freq PRN Reason Stop Dose Admin Acetaminophen 1,000 mg 08/03/21 15:13 08/04/21 03:11 Acetaminophen 500 Mg Tablet PO 1,000 mg Q6H PRN Administration Mild Pain (1-3) or Fever Hydrocodone Bitart/Acetaminophen
[2021-08-04] MEDS: IBUPROFEN 600 MG TABLET PO (08:06)
[2021-08-04] MEDS: ENOXAPARIN 40 MG/0.4 ML SYRINGE SUB-Q (09:40)
--- NOTE | 2021-08-04 09:45 | PC.NURSE ---
Dr. Morocho at bedside to assess pt and discuss discharge and instructions.
--- NOTE | 2021-08-05 17:16 | WPDANESPN ---
Anes - Prog Note Post-Op Date/Time: 08/05/21 17:16 Cardiovascular status: normal Respiratory status: normal Airway patency: baseline Mental status: baseline Post-Op hydration status: normal Vital Signs: Last Vital Signs Temp 37.2 C 08/04/21 07:35 Pulse 66 08/04/21 07:36 Resp 16 08/04/21 07:35 BP 127/66 08/04/21 07:36 Pulse Ox 98 08/04/21 03:16 Pain Score (VAS): 07/16 Laboratory Tests 08/04/21 05:05 08/04/21 05:04 Post-procedural complaints: none Patient Feedback: Patient satisfied with anesthetic care. Per floor RN report
== END 2021-08-04 12:03 | disposition home or self-care (01) | DRG 769 ==
LOC: ANHOBOP 12:55 → ANHOBPP 08-01 07:23
PROVIDERS: Internal Medicine Gastroenterology; Nurse Practitioner Family; Surgery; Admitting Provider Obstetrics & Gynecology; Visit Provider Obstetrics & Gynecology
PROC: 0F798ZZ Dilation of Common Bile Duct, Via Natural or Artificial Opening Endoscopic (ICD-10-PCS; CPT 43260; principal; 2021-08-02 13:45)
PROC: 0FT44ZZ Resection of Gallbladder, Percutaneous Endoscopic Approach (ICD-10-PCS; CPT 47562; principal; 2021-08-03 12:00)
DX: O99.63 Diseases of the digestive system complicating the puerperium (principal); K80.64 Calculus of gallbladder and bile duct with chronic cholecystitis without obstruction; Z68.42 Body mass index [BMI] 45.0-49.9, adult; R74.01 Elevation of levels of liver transaminase levels; O13.5 Gestational [pregnancy-induced] hypertension without significant proteinuria, complicating the puerperium; O99.215 Obesity complicating the puerperium; E66.9 Obesity, unspecified; K21.9 Gastro-esophageal reflux disease without esophagitis
CPT/HCPCS: 36415; 74183; 74301; 74329; 76376; 76705; 80053; 80074; 83690; 84550; 85025; 85027; 85049; 88304; A9270; A9577; J0330; J0690; J1100; J1170; J1650; J2250; J2270; J2405; J2704; J2710; J3010; J3475; J7030; J7040; J7120; Q9966

== ENCOUNTER 2022-06-23 10:08 | Emergency (ER) | payer OTHER, SELFPAY ==
--- NOTE | 2022-06-23 10:13 | ED.GENADULT ---
HPI - General Adult General Chief complaint: Upper Respiratory Infection Stated complaint: Sore Throat,Cough Time Seen by Provider: 06/23/22 10:12 Source: patient Mode of arrival: ambulatory Limitations: no limitations History of Present Illness HPI narrative: 27-year-old female patient presents to the [facility] with complaints of cold symptoms last 2-3 days that includes sore throat, cough reports fevers as high as 101.7. Patient states she has been taking Tylenol for her symptoms. Patient states she did get a an influenza vaccine but denies any COVID vaccines. Patient denies any chest pain, shortness of breath. Patient denies any nausea, vomiting or diarrhea. Related Data Home Medications Medication Instructions Recorded Confirmed famotidine 40 mg tablet (Pepcid) 40 mg PO DAILY 06/20/21 06/23/22 dupilumab 300 mg/2 mL subcutaneous 300 mg subcut WEEKLY 06/23/22 06/23/22 syringe (Dupixent) Allergies Allergy/AdvReac Type Severity Reaction Status Date / Time No Known Allergies Allergy Verified 06/23/22 10:09 Review of Systems Review of Systems: CONSTITUTIONAL: Positive fever, denieschills, or sweats. EYES: Denies visual changes, redness, or discharge. ENT: positive rhinorrhea, congestion, positivesore throat, deniesotalgia. CARDIOVASCULAR: Denies chest pain, palpitations, or edema. RESPIRATORY: positive cough , denies dyspnea. GASTROINTESTINAL: Denies abdominal pain, nausea, vomiting, or diarrhea. GENITOURINARY: Denies dysuria or hematuria. SKIN: Denies rash or itching. MUSCULOSKELETAL: Denies back pain, joint pain, or myalgia. NEUROLOGIC: positive headache, denies numbness, or weakness. PSYCHIATRIC: Denies anxiety or depression. [facility] Past Medical History Medical History Asthma affecting in third trimester Eczema GERD (gastroesophageal reflux disease) Obesity affecting in third trimester Surgical History Surgical History History of delivery 07/17/21 Hx laparoscopic cholecystectomy 07/30/21 Laparoscopic cholecystectomy with intraoperative cholangiogram Family History Family History Father Hypertension Sibling Asthma Grandparent Lung cancer Social History Social History Smoking status: Never smoker Substance use: never Spiritual care concerns: No Comments At the time of my signature I agree with nursing past medical history, surgical, social, and family history. There is no relevant family history pertinent to the presenting complaint. Exam Narrative: GENERAL: Well-appearing, well-nourished, and in no acute distress. HEAD: Normocephalic, atraumatic. EYES: PERRLA and EOMI. ENT: Nares with erythema and edema noted bilaterally, no rhinorrhea or epistaxis. Mucous membranes moist. posterior pharynx with postnasal drip present no obvious tonsillar enlargement, exudates or lesions present. NECK: Supple. No lymphadenopathy CHEST: Clear to auscultation. No respiratory distress. Patient able to talk in complete sentences. HEART: Regular rate and rhythm. No murmur heard. Normal peripheral pulses. ABDOMEN: Soft, nontender, nondistended, normal active bowel sounds. EXTREMITIES: Normal range of motion. No edema. SKIN: Warm, dry, no rash. NEURO: No focal deficits. Alert and oriented x3. Course Course Level of Care: Express Care Visit Vital Signs Vital signs: Vital Signs Temperature 36.4 C 06/23/22 10:18 Pulse Rate 93 06/23/22 10:18 Respiratory Rate 20 06/23/22 10:18 Blood Pressure 140/67 06/23/22 10:18 Pulse Oximetry 98 06/23/22 10:18 Oxygen Delivery Room Air 06/23/22 10:18 Temperature 36.4 C 06/23/22 10:18 Pulse Rate 93 06/23/22 10:18 Respiratory Rate 20 06/23/22 10:18 Blood Pressure 140/67 06/23/22 10
[2022-06-23 10:18] VITALS: BP 140/67; PULSE 93; RESP 20; TEMP 36.4; O2SAT 98
== END 2022-06-23 10:52 | disposition home or self-care (01) ==
PROVIDERS: Emergency Provider Nurse Practitioner Family; PCP Family Medicine
DX: J06.9 Acute upper respiratory infection, unspecified (principal); R05.9 Cough, unspecified; J02.9 Acute pharyngitis, unspecified; Z20.822 Contact with and (suspected) exposure to COVID-19; J45.909 Unspecified asthma, uncomplicated; K21.9 Gastro-esophageal reflux disease without esophagitis
CPT/HCPCS: 87081; 87147; 87426; 87804; 99213; C9803; G0463

== ENCOUNTER 2022-11-15 08:39 | Emergency (ER) | payer OTHER, SELFPAY ==
[2022-11-15] VITALS (10 sets, daily range): BP systolic 130–139; BP diastolic 76–106; PULSE 79–112; RESP 13–25; TEMP 36.8–36.9; O2SAT 94–99
--- NOTE | ~2022-11-15 | XR_ITS ---
EXAMINATION: XR chest 1V portable 11/15/2022 10:30 INDICATION: Cough. History of asthma. PROCEDURE: AP portable chest COMPARISON: No prior studies for comparison. FINDINGS: The lungs are clear. The cardiomediastinal silhouette is within normal limits. There are no pleural effusions. There is no pneumothorax suspected. IMPRESSION: 1: NO ACUTE CARDIOPULMONARY DISEASE. Reviewed, dictated and finalized at location B.
--- NOTE | 2022-11-15 10:15 | ED.GENADULT ---
HPI - General Adult General Chief complaint: Shortness of Breath/Dyspnea Stated complaint: cough Time Seen by Provider: 11/15/22 09:54 Source: patient Mode of arrival: ambulatory Limitations: no limitations History of Present Illness HPI narrative: This is a 27-year-old female with PMH of asthma who presents to the ED with chief complaint of cough beginning at 11:30 PM last night. Patient states that she is not short of breath but has trouble taking deep breaths. Also reports central chest pain with the cough. Reports the cough is nonproductive. States she has tried 4 albuterol treatments since midnight last night with minimal relief. She states she is feeling a little bit wheezy. 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 Denies fevers, chills, abdominal pain, nausea, vomiting, diarrhea. Related Data Home Medications Medication Instructions Recorded Confirmed famotidine 40 mg tablet (Pepcid) 40 mg PO DAILY 06/20/21 06/23/22 dupilumab 300 mg/2 mL subcutaneous 300 mg subcut WEEKLY 06/23/22 06/23/22 syringe (Dupixent) Allergies Allergy/AdvReac Type Severity Reaction Status Date / Time No Known Allergies Allergy Verified 06/23/22 10:09 Review of Systems Review of Systems: CONSTITUTIONAL: Denies fever, chills, or sweats. EYES: Denies visual changes, redness, or discharge. ENT: Denies rhinorrhea, congestion, sore throat, or otalgia. CARDIOVASCULAR: See HPI RESPIRATORY: See HPI GASTROINTESTINAL: Denies abdominal pain, nausea, vomiting, or diarrhea. GENITOURINARY: Denies dysuria or hematuria. SKIN: Denies rash or itching. MUSCULOSKELETAL: Denies back pain, joint pain, or myalgia. NEUROLOGIC: Denies headache, numbness, dizziness, or weakness. PSYCHIATRIC: Denies anxiety or depression. [facility] Past Medical History Medical History Asthma affecting in third trimester Eczema GERD (gastroesophageal reflux disease) Obesity affecting in third trimester Surgical History Surgical History History of delivery 07/17/21 Hx laparoscopic cholecystectomy 1/24/22 Laparoscopic cholecystectomy with intraoperative cholangiogram Family History Family History Father Hypertension Sibling Asthma Grandparent Lung cancer Social History Social History Smoking status: Never smoker Substance use: never Spiritual care concerns: No Exam Narrative: GENERAL: Well-appearing, well-nourished, and in no acute distress. HEAD: Normocephalic, atraumatic. EYES: PERRLA and EOMI. ENT: Nares clear, no rhinorrhea or epistaxis. Mucous membranes moist. Oropharynx without tonsillar hypertrophy exudate or other lesions. NECK: Supple. No adenopathy or masses. CHEST: No respiratory distress. Faint wheezes bilaterally in the upper sterling. No rales or rhonchi. Sats 98% on room air. HEART: Regular rate and rhythm. No murmur heard. Normal peripheral pulses. ABDOMEN: Soft, nontender, nondistended, normal active bowel sounds. EXTREMITIES: Normal range of motion. No edema. SKIN: Warm, dry, no rash. NEURO: Alert and oriented x3. No focal deficits. PSYCH: Normal mood and affect. Course Course Emergency Course: Reevaluation 1100: Wheezing improved. Vital Signs Vital signs: Vital Signs Temperature 98.2 F 11/15/22 08:45 Pulse Rate 112 H 11/15/22 08:45 Respiratory Rate 20 11/15/22 08:45 Blood Pressure 130/78 11/15/22 08:45 Pulse Oximetry 99 11/15/22 08:45 Oxygen Delivery Room Air 11/15/22 08:45 Temperature 98.4 F 11/15/22 10:00 Pulse Rate 89 11/15/22 11:02 Respiratory Rate 23 H 11/15/22 11:02 Blood Pressure 139/76 11/15/22 11:01 Pulse Oximetry 96 11/15/22 11:02 Oxygen Delivery Room Air 11/15
[2022-11-15 10:37] LABS: Basophils Percent Auto 0.4 % (0.2-1.2); Eosinophils Absolute Auto 0.3 K/mm3 (0-0.3); Hematocrit 40.8 % (37.0-47.0); Hemoglobin 12.5 g/dL (12.0-15.0); Immature Granulocyte Absolute 0.05 K/mm3 (0.00-0.031); Immature Granulocyte Percent A 0.5 % (0-0.5); Lymphocytes Percent Auto 16.3 % (18.3-44.2); Mean Corpuscular HGB Conc 30.6 g/dl (32-36); Mean Corpuscular Hemoglobin 23.2 pg (26-34); Mean Corpuscular Volume 75.8 fl (80-100); Mean Platelet Volume 9.7 fl (7.4-10.4); Monocytes Absolute Auto 0.7 K/mm3 (0.1-0.6); Monocytes Percent Auto 6.5 % (2.6-8.5); Neutrophils Absolute Auto 8.1 K/mm3 (1.3-6.7); Neutrophils Percent Auto 73.3 % (45.5-73.1); Platelet Count Result 362 k/mm3 (150-375); Red Blood Count 5.38 M/mm3 (4.2-5.4); Red Cell Distribution Width 17.1 % (11.5-14.5); White Blood Count 11.1 K/mm3 (4.5-10.0)
[2022-11-15] MEDS: IPRATROPIUM BR 0.02% INH SOLN 0.5 MG/2.5 ML VIAL INHALATION (10:37)
[2022-11-15] MEDS: LEVALBUTEROL NEB 1.25 MG/3 ML INHALATION (10:37)
[2022-11-15 10:44] LABS: Alanine Aminotransferase 27 U/L (6-35); Albumin Level 3.8 g/dL (3.5-5.1); Alkaline Phosphatase 86 U/L (38-126); Anion Gap 8 mmol/L (8-16); Aspartate Amino Transferase 26 U/L (14-36); Bilirubin,Total 0.3 mg/dL (0.2-1.3); Blood Urea Nitrogen 10 mg/dL (7-17); Calcium 8.3 mg/dL (8.4-10.2); Carbon Dioxide 25 mmol/L (22-30); Chloride 102 mmol/L (98-107); Estimated Glomerular Filt Rate > 60; Glucose 82 mg/dL (65-110); Sodium 135 mmol/L (137-145)
[2022-11-15 10:51] LABS: D Dimer 0.42 ug/mL (<0.48)
[2022-11-15] MEDS: predniSONE 20 MG TABLET 40 MG PO (11:07)
[2022-11-15 11:17] LABS: Influenza A QL RT-PCR Negative (Negative); Influenza B QL RT-PCR Negative (Negative); RSV RNA, RT-PCR Negative (Negative); SARS-CoV-2 RNA PCR Negative (Negative)
== END 2022-11-15 11:11 | disposition home or self-care (01) ==
PROVIDERS: Emergency Provider Physician Assistant
DX: B34.9 Viral infection, unspecified (principal); Z20.822 Contact with and (suspected) exposure to COVID-19; J45.909 Unspecified asthma, uncomplicated; K21.9 Gastro-esophageal reflux disease without esophagitis; E66.9 Obesity, unspecified; Z68.43 Body mass index [BMI] 50.0-59.9, adult
CPT/HCPCS: 36415; 71045; 80053; 81025; 85025; 85380; 87637; 94640; 99283; J7512

== ENCOUNTER → 2023-07-18 11:52 | Outpatient (CLI) | payer SELFPAY ==
--- NOTE | ~2023-07-18 | XR_ITS ---
EXAM: XR abdomen/kub 1V DATE: 07/18/2023 13:08 HISTORY: R10.9 - Unspecified abdominal pain . COMPARISON: None available. FINDINGS: Clear lung bases. Normal bowel gas pattern. Cholecystectomy clips. IUD. Enlarged liver. No abnormal abdominal calcification. Regional bones and soft tissues normal for age. IMPRESSION: Hepatomegaly. Reviewed, dictated and finalized at location K. 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
== END ==
PROVIDERS: PCP Nurse Practitioner Adult Health; Visit Provider Nurse Practitioner Adult Health
DX: R10.9 Unspecified abdominal pain (principal); R16.0 Hepatomegaly, not elsewhere classified
CPT/HCPCS: 74018

== ENCOUNTER 2023-08-27 07:18 | Outpatient (CLI) | payer OTHER, SELFPAY ==
[2023-08-27 07:56] LABS: Hematocrit 43.6 % (37.0-47.0); Hemoglobin 13.1 g/dL (12.0-15.0); Mean Corpuscular Hemoglobin 23.7 pg (26-34); Mean Platelet Volume 10.1 fl (7.4-10.4); Platelet Count Result 373 k/mm3 (150-375); Red Blood Count 5.52 M/mm3 (4.2-5.4); Red Cell Distribution Width 15.9 % (11.5-14.5); White Blood Count 8.9 K/mm3 (4.5-10.0)
[2023-08-27 08:24] LABS: Alanine Aminotransferase 38 U/L (6-35); Alkaline Phosphatase 97 U/L (38-126); Anion Gap 3 mmol/L (8-16); Aspartate Amino Transferase 35 U/L (14-36); Bilirubin,Total 0.4 mg/dL (0.2-1.3); Blood Urea Nitrogen 12 mg/dL (7-17); Calcium 8.9 mg/dL (8.4-10.2); Carbon Dioxide 29 mmol/L (22-30); Chloride 103 mmol/L (98-107); Cholesterol 140 mg/dL (0-200); Estimated Glomerular Filt Rate > 60; Glucose 102 mg/dL (65-110); HDL Direct 26 mg/dL; Potassium 4.2 mmol/L (3.4-5.0); Sodium 135 mmol/L (137-145); Triglycerides 104 mg/dL (<150)
[2023-08-27 08:35] LABS: LDL Cholesterol Direct 96 mg/dL
[2023-08-27 08:43] LABS: Free T4 Free Thyroxine 1.01 ng/mL (0.78-2.19)
[2023-08-27 09:08] LABS: Appearance Urine Clear (Clear); Bacteria Urine 2+ /hpf; Bilirubin Urine Negative (Negative); Blood Urine 2+ (Negative); Color Urine Yellow (Yellow); Glucose Urine UA Negative (Negative); Ketones Urine Negative (Negative); Leukocyte Esterase Ur Trace LEU/UL (NEGATIVE); Nitrate Urine Negative (Negative); Non Pathogenic Casts 0-2; Protein Urine 2+ mg/dL (Negative); Specific Grav Ur 1.018 (1.001-1.035); Squamous Epithelial Cell Urine Few /hpf (Few); Urobilinogen Urine 0.2 mg/dL (<2.0)
[2023-08-27 09:37] LABS: Add Urine Microscopic? YES
== END 2023-08-27 07:19 | disposition home or self-care (01) ==
LOC: ANHLAB 07:20
PROVIDERS: PCP Nurse Practitioner Adult Health; Visit Provider Nurse Practitioner Adult Health
DX: R16.0 Hepatomegaly, not elsewhere classified (principal); R31.29 Other microscopic hematuria; Z13.29 Encounter for screening for other suspected endocrine disorder
CPT/HCPCS: 36415; 80053; 80061; 81001; 84439; 84443; 85027; 87086

== ENCOUNTER 2023-09-02 10:49 | Outpatient (CLI) | payer OTHER, SELFPAY ==
--- NOTE | ~2023-09-02 | CT_ITS ---
EXAMINATION: CT abdomen pelvis wo/w con DATE: 09/02/2023 11:31 INDICATION: Hepatomegaly, hematuria TECHNIQUE: Computed tomography (CT) of the abdomen and pelvis was performed without intravenous contr ast. CT of the abdomen and pelvis was then performed with a total of 130 mL Omnipaque 350 intravenous contrast using a double-bolus technique for simultaneous opacification of the renal parenchyma and r enal collecting system. The dose-length product (DLP) was 3051.54 mGy-cm. Automated exposure control and iterative reconstruction technique were employed. COMPARISON: 07/24/2021 FINDINGS: The lung bases are clear. The heart size is normal. Changes of cholecystectomy are noted. T he liver, spleen, pancreas, and adrenal glands are normal. No stones are identified in the kidneys, u reters, or bladder. No hydronephrosis or hydroureter. There is mild blunting of some of the calyces o f the kidneys which could reflect papillary necrosis. No suspicious renal or urothelial lesion identi fied. An IUD is present in the uterus which is somewhat malpositioned with one of the tines entering the myometrium of the posterior uterine body. The stem of the IUD is positioned in the endocervical c anal. No pathologically enlarged abdominal or pelvic lymph nodes are identified. The appendix is norm al. No free intraperitoneal gas or evidence of bowel obstruction. IMPRESSION: 1. Mild blunting and some of the calyces of the kidney which can be seen in the setting of papillary necrosis. 2. Malpositioned IUD. Reviewed, dictated and finalized at location L. GER WELDING
== END 2023-09-02 10:50 | disposition home or self-care (01) ==
PROVIDERS: PCP Nurse Practitioner Adult Health; Visit Provider Nurse Practitioner Adult Health
DX: R31.29 Other microscopic hematuria (principal); R16.0 Hepatomegaly, not elsewhere classified; T83.89XD Other specified complication of genitourinary prosthetic devices, implants and grafts, subsequent encounter; N20.0 Calculus of kidney
CPT/HCPCS: 74178; Q9967

== ENCOUNTER 2023-10-07 11:30 | Outpatient (CLI) | payer OTHER, SELFPAY ==
[2023-10-07 12:21] LABS: Hematocrit 42.1 % (37.0-47.0); Hemoglobin 13.3 g/dL (12.0-15.0); Mean Corpuscular HGB Conc 31.6 g/dl (32-36); Mean Corpuscular Hemoglobin 24.3 pg (26-34); Mean Corpuscular Volume 76.8 fl (80-100); Mean Platelet Volume 10.4 fl (7.4-10.4); Platelet Count Result 375 k/mm3 (150-375); Red Blood Count 5.48 M/mm3 (4.2-5.4); Red Cell Distribution Width 15.9 % (11.5-14.5); White Blood Count 9.1 K/mm3 (4.5-10.0)
[2023-10-07 12:39] LABS: Anion Gap 6 mmol/L (4-12); Blood Urea Nitrogen 11 mg/dL (7-17); Carbon Dioxide 22 mmol/L (22-30); Chloride 107 mmol/L (98-107); Estimated Glomerular Filt Rate > 60; Glucose 109 mg/dL (65-110); Phosphorus 3.6 mg/dL (2.5-4.5); Potassium 3.7 mmol/L (3.4-5.0); Sodium 135 mmol/L (137-145)
[2023-10-07 12:45] LABS: Creatinine Urine 113.6 mg/dL; Total Protein Urine Random 112 mg/dL; Ur Ttl Prot Creatinine Ratio 0.99 mg/mg (0-0.20)
[2023-10-09 15:16] LABS: Hematocrit 43.7 % (35.0-45.0); MCH 23.3 pg (27.0-33.0); MCV 78.3 fL (80.0-100.0); RDW 15.2 % (11.0-15.0); Red Blood Cell Count 5.58 Mill/uL (3.80-5.10)
[2023-10-10 07:02] LABS: Angiotensin Converting Enzyme 17.5 U/L (9-67)
[2023-10-11 11:28] LABS: Quantiferon TB Plus, 1T NEGATIVE
[2023-10-11 11:29] LABS: NIL 0.02
[2023-10-11 11:30] LABS: TB1-NIL 0.03; TB2-NIL 0.02
== END 2023-10-07 11:31 | disposition home or self-care (01) ==
LOC: ANHLAB 11:32
PROVIDERS: PCP Nurse Practitioner Adult Health; Visit Provider Internal Medicine Nephrology
DX: R80.9 Proteinuria, unspecified (principal); N17.2 Acute kidney failure with medullary necrosis
CPT/HCPCS: 36415; 80069; 82164; 82570; 83021; 84156; 85027; 86334; 86480

== ENCOUNTER 2023-10-10 11:47 | Outpatient (CLI) | payer OTHER, SELFPAY ==
[2023-10-10 12:54] LABS: Iron 32 ug/dL (37-170)
[2023-10-10 13:04] LABS: Percent Iron Saturation 8 % (20-50)
== END 2023-10-10 11:48 | disposition home or self-care (01) ==
LOC: ANHLAB 11:49
PROVIDERS: PCP Nurse Practitioner Adult Health; Visit Provider Family Medicine
DX: R71.8 Other abnormality of red blood cells (principal)
CPT/HCPCS: 36415; 82728; 83540; 83550

== ENCOUNTER 2023-10-13 07:40 | Outpatient (CLI) | payer OTHER, SELFPAY ==
[2023-10-18 02:08] LABS: Albumin 66 %; Creat 24 Hr 1.54 g/24 h (0.50-2.15); Pro/Creat Ratio 346 mg/g creat (<150); Pro/Creat Ratio mg/mg 0.346 (<0.150); Protein,total, 24 Hr Ur 533 mg/24 h (<150)
== END 2023-10-13 07:41 | disposition home or self-care (01) ==
LOC: ANHLAB 07:41
PROVIDERS: PCP Nurse Practitioner Adult Health; Visit Provider Internal Medicine Nephrology
DX: N17.2 Acute kidney failure with medullary necrosis (principal)
CPT/HCPCS: 86335

== ENCOUNTER 2023-10-17 12:11 | Outpatient (CLI) | payer OTHER, SELFPAY ==
--- NOTE | ~2023-10-17 | US_ITS ---
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 COMPARISON: 09/02/2023 FINDINGS: The right kidney measures 10.4 x 4.7 x 5.5 cm. The left kidney measures 10.9 x 4.9 x 5.1 cm. The kidn eys demonstrate normal parenchymal echogenicity. There is no hydronephrosis. The bladder is partially distended, grossly normal. IMPRESSION: Unremarkable renal sonogram findings. Reviewed, dictated and finalized at location K.
== END 2023-10-17 12:12 | disposition home or self-care (01) ==
LOC: ANHIMG 12:12
PROVIDERS: PCP Nurse Practitioner Adult Health; Visit Provider Internal Medicine Nephrology
DX: N17.2 Acute kidney failure with medullary necrosis (principal)
CPT/HCPCS: 76775

== ENCOUNTER 2023-10-22 16:46 | Outpatient (CLI) | payer OTHER, SELFPAY ==
[2023-10-22 12:17] LABS: Rheumatoid Factor < 12.0 IU/ML (<12)
[2023-10-23 13:48] LABS: ANA Cascade Screen NEGATIVE (NEGATIVE)
== END 2023-10-22 16:47 | disposition home or self-care (01) ==
PROVIDERS: PCP Nurse Practitioner Adult Health; Referring Provider Internal Medicine Nephrology; Visit Provider Nurse Practitioner Adult Health
DX: R71.8 Other abnormality of red blood cells (principal); N17.2 Acute kidney failure with medullary necrosis; R31.29 Other microscopic hematuria
CPT/HCPCS: 36415; 86038; 86225; 86235; 86364; 86430; 87015; 87116; 87206

== ENCOUNTER 2023-11-27 11:42 | Outpatient (CLI) | payer OTHER, SELFPAY ==
[2023-11-27 13:11] LABS: Appearance Urine Clear (Clear); Bacteria Urine None Seen /hpf; Bilirubin Urine Negative (Negative); Blood Urine 3+ (Negative); Color Urine Yellow (Yellow); Glucose Urine UA Negative (Negative); Ketones Urine Negative (Negative); Leukocyte Esterase Ur Negative LEU/UL (Negative); Nitrate Urine Negative (Negative); Non Pathogenic Casts 0-2; Protein Urine 2+ mg/dL (Negative); Specific Grav Ur 1.023 (1.001-1.035); Squamous Epithelial Cell Urine None Seen /hpf (Few); Urobilinogen Urine 0.2 mg/dL (<2.0); pH Urine 5.5 (5.0-9.0)
[2023-11-27 13:14] LABS: Add Urine Microscopic? YES
== END 2023-11-27 11:43 | disposition home or self-care (01) ==
LOC: ANHLAB 11:44
PROVIDERS: PCP Family Medicine; Visit Provider Internal Medicine Nephrology
DX: R31.9 Hematuria, unspecified (principal); R93.41 Abnormal radiologic findings on diagnostic imaging of renal pelvis, ureter, or bladder
CPT/HCPCS: 81001; 87081; 87086; 87088

== ENCOUNTER 2023-12-08 11:39 | Outpatient (CLI) | payer OTHER, SELFPAY ==
[2023-12-08 13:05] LABS: Appearance Urine Cloudy (Clear); Bacteria Urine 1+ /hpf; Bilirubin Urine Negative (Negative); Blood Urine 3+ (Negative); Color Urine Yellow (Yellow); Glucose Urine UA Negative (Negative); Ketones Urine Negative (Negative); Leukocyte Esterase Ur 1+ LEU/UL (Negative); Need Manual Microscopic Reviewed; Nitrate Urine Negative (Negative); Non Pathogenic Casts 0-2; Protein Urine 2+ mg/dL (Negative); RBC Urine >100 /hpf (0-2); Specific Grav Ur 1.025 (1.001-1.035); Squamous Epithelial Cell Urine Moderate /hpf (Few); Urobilinogen Urine 0.2 mg/dL (<2.0); WBC Urine 21-50 /hpf (0-3); pH Urine 5.5 (5.0-9.0)
[2023-12-08 13:06] LABS: Add Urine Microscopic? YES
== END 2023-12-08 11:40 | disposition home or self-care (01) ==
PROVIDERS: PCP Family Medicine; Visit Provider Internal Medicine Nephrology
DX: R31.9 Hematuria, unspecified (principal); R93.41 Abnormal radiologic findings on diagnostic imaging of renal pelvis, ureter, or bladder
CPT/HCPCS: 81001; 88108

== ENCOUNTER 2024-09-02 07:12 | Outpatient (CLI) | payer OTHER, SELFPAY ==
[2024-09-02 07:32] LABS: Hematocrit 44.3 % (37.0-47.0); Hemoglobin 13.8 g/dL (12.0-15.0); Mean Corpuscular HGB Conc 31.2 g/dl (32-36); Mean Corpuscular Hemoglobin 24.9 pg (26-34); Mean Platelet Volume 9.8 fl (7.4-10.4); Platelet Count Result 376 k/mm3 (150-375); Red Blood Count 5.54 M/mm3 (4.2-5.4)
[2024-09-02 08:00] LABS: Add Urine Microscopic? YES; Appearance Urine Clear (Clear); Bacteria Urine 1+ /hpf; Bilirubin Urine Negative (Negative); Blood Urine Negative (Negative); Color Urine Yellow (Yellow); Glucose Urine UA Negative (Negative); Ketones Urine Negative (Negative); Leukocyte Esterase Ur Trace LEU/UL (Negative); Nitrate Urine Negative (Negative); Protein Urine 2+ mg/dL (Negative); RBC Urine 0-2 /hpf (0-2); Specific Grav Ur 1.018 (1.001-1.035); Squamous Epithelial Cell Urine Occasional /hpf (Few); Urobilinogen Urine 0.2 mg/dL (<2.0); pH Urine 6.5 (5.0-9.0)
[2024-09-02 08:32] LABS: Alanine Aminotransferase 41 U/L (6-35); Albumin Level 3.9 g/dL (3.5-5.1); Alkaline Phosphatase 92 U/L (38-126); Aspartate Amino Transferase 36 U/L (14-36); Bilirubin,Total 0.4 mg/dL (0.2-1.3)
[2024-09-02 08:50] LABS: Anion Gap 7 mmol/L (4-12); Blood Urea Nitrogen 16 mg/dL (7-17); Carbon Dioxide 29 mmol/L (22-30); Chloride 99 mmol/L (98-107); Estimated Glomerular Filt Rate > 60; Glucose 98 mg/dL (65-110); Iron 56 ug/dL (37-170); Phosphorus 4.1 mg/dL (2.5-4.5); Potassium 4.4 mmol/L (3.4-5.0); Sodium 135 mmol/L (137-145)
[2024-09-02 09:00] LABS: Creatinine Urine 77.2 mg/dL; Total Protein Urine Random 91 mg/dL; Ur Ttl Prot Creatinine Ratio 1.18 mg/mg (0-0.20)
[2024-09-02 09:04] LABS: Cortisol Random 9.81 ug/dL
[2024-09-02 16:03] LABS: Percent Iron Saturation 12 % (20-50)
[2024-09-03 07:48] LABS: FSH 4.8 mIU/mL; Prolactin 7.2 ng/mL
== END 2024-09-02 07:13 | disposition home or self-care (01) ==
LOC: ANHLAB 07:13
PROVIDERS: Internal Medicine Nephrology; PCP Family Medicine; Visit Provider Family Medicine
DX: O99.213 Obesity complicating pregnancy, third trimester (principal); R31.9 Hematuria, unspecified; N92.0 Excessive and frequent menstruation with regular cycle; R71.8 Other abnormality of red blood cells; R74.01 Elevation of levels of liver transaminase levels; Z3A.00 Weeks of gestation of pregnancy not specified
CPT/HCPCS: 36415; 80069; 80076; 81001; 82533; 82570; 82607; 82728; 83001; 83002; 83540; 83550; 84144; 84146; 84156; 85027; 87086

== ENCOUNTER 2024-09-03 10:25 | Outpatient (CLI) | payer OTHER, SELFPAY | END 2024-09-03 10:26 | disposition home or self-care (01) | LOC: MICIMG 10:25 | PROVIDERS: PCP Family Medicine; Visit Provider Internal Medicine Nephrology | DX: R16.0 Hepatomegaly, not elsewhere classified (principal); R93.41 Abnormal radiologic findings on diagnostic imaging of renal pelvis, ureter, or bladder | CPT/HCPCS: 74177; Q9967 ==

== ENCOUNTER 2024-09-16 07:02 | Outpatient (CLI) | payer OTHER, SELFPAY ==
--- OUTSIDE RECORDS SUMMARY | 2024-09-16 07:06 | XMS_ITS | Clinical Summary ---
Author Organization [facility] Known Address [address] [place] [address] Care Team Providers Care Caregiver Assisted Living Name Role Phone Miracle Schmid MD Primary Care Provider [phone] Source Comments [facility] Known,non-owned Affiliates and Associated Physician Practices is amultiple site organization consisting of ambulatory clinics and hospital sitesin [place], [place], [place] and [place]. This disclosure is being madepursuant to the Care Everywhere program and may not contain all information available regarding this patient. Last updated 18.[facility] Known Allergies No known active allergies Medications * Be aware that medications may not be up to date on this document. Alwaysverify current medications with the patient. Medication Sig Dispensed Refills Start Date End Date Status albuterol (PROVENTIL;VENTOLIN) (2.5 MG/3ML) 0.083% nebulizer solutionIndications:As thma exacerbation, moderate persistent (HCC),Bronchitis Inhale 2.5 mg by mouth every 4 hours as needed for Shortness of Breath or Wheezing (Cough) 25 Vial 1 04/27/2015 Active AEROCHAMBER PLUS (AEROCHAMBER)Indicatio ns:Asthma exacerbation, moderate persistent (HCC),Bronchitis Use as directed 1 Each 0 04/27/2015 Active betamethasone dipropionate (DIPROSONE) 0.05 % ointment Apply to affected area 2 times daily Active Active Problems Problem Noted Date Diagnosed Date Dyshidrotic hand dermatitis 11/25/2018 Secondary impetiginization 11/25/2018 Bronchitis 09/30/2012 Overview (05/06/2015): 09/30/12 Zithromax 04/27/15 Zithromax Otitis media, acute 04/27/2010 Overview (08/24/2011): 04/27/10 left (perf vs OE) - zithromax, ciprodex 08/24/11 bilateral - zithromax Well child visit 04/07/2010 Overview (02/05/2012): 14 y/o 04/07/10 16 y/o 02/05/12 Asthma 04/07/2010 Eczema 04/07/2010 Resolved Problems Problem Noted Date Diagnosed Date Resolved Date Asthma exacerbation 09/30/2012 05/20/20 15 Overview (05/06/2015): 09/30/12 Prednisone, albuterol 04/27/15 Prednisone, albuterol Immunizations Name Administration Dates Next Due INFLUENZA VACCINE, TRIV. (AF LURIA, FLUZONE TRIVALENT; 6MO+) (IIV3) 05/07/2013,04/07/2010 DPT 01/11/2003, 9,01/20/1998,09/26,1997 HEP B VACCINE, PED/ADOL 01/20/1998,1997, HIB BOOSTER 09/26/1998, 8,1997,07/26 INFLUENZA VACCINE 05/17/2014, 2,06/04/2011,05/01,04/13/2005,05/09/2004,04/26/2003 ,06/08/2002,05/08/2002 INFLUENZA VACCINE, QUADR. (F LUZONE; FLULAVAL; FLUARIX; AFLURIA QUADRIVALENT; 6MO+), 0.5 ML (IIV4) 06/10/2015 MENINGOCOCCAL CONJUGATE (MCV4P) 01/28/2015,02/04 MMR 01/11/2003,09/26/1998 POLIO IPV 02/23/2002, 8,1997,07/26 PPD 02/23/2002 TDAP (7yrs+) 04/07/2010 VARICELLA 04/07/2010,02/23/2002 Family History Medical History Relation Name Comments Cancer - Skin, Melanoma Neg Hx Cancer - Skin, Non Melanoma Neg Hx Social History Tobacco Use Types Packs/Day Years Used Date Smoking Tobacco: Never Smokeless Tobacco: Never Alcohol Use Standard Drinks/Week Comments No 0 (1 standard drink = 0.6 oz pur e alcohol) Sex and Gender Information Value Date Recorded Sex Assigned at Not on file Gender Identity Not on file Sexual Orientation Not on file Last Filed Vital Signs Vital Sign Reading Time Taken Comments Blood Pressure 118/78 02/05/2012 4:41 PM CDT Pulse 76 08/28/2015 2:22 PM LEAD WEB DEVELOPER Temperature 37.2 C (99 F) 08/28/2015 2:22 PM LEAD WEB DEVELOPER Respiratory Rate - - Oxygen Saturation 96% 08/28/2015 2:22 PM LEAD WEB DEVELOPER Inhaled Oxygen Concentration - - Weight 94.3 kg (208 lb) 11/25/2018 9:34 AM CDT Height 149.9 cm (4' 11 ) 11/25/2018 9:34 AM CDT Body Mass Index 42.01 11/25/2018 9:34 AM CDT Plan of Treatment Health Maintenance Due Date Last Done Comments HIV SCREENING 2012 HEPATITIS C SCREENING 05/20/2015 PNEUMOCOCCAL VACCINE (1 of 2 - PCV) 2016 DTAP/TDAP/TD VACCINES (7 - Td or Tdap) 04/07/2020 04/07/2010, 01/11/2003, 09/26/1998, Additional history exists COVID-19 VACCINE (1 - season) 2024 INFLUENZA VACCINE (#1) 2024 5, 05/17/2014, 05/07/2013, Additional history exists DEPRESSION SCREENING 07/07/2024 ZOSTER VACCINE (1 of 2) 2047 HEPATITIS B VACCINE Completed 01/20/1998, 1997, 1997 HIB VACCINE Completed 09/26/1998, 01/04, 1997, Additional history exists MENINGOCOCCAL GROUPS A/C/Y/W VACCINE Completed 01/28/2015, 02/05/2012 HPV VACCINE Aged Out No longer eligi ble based on patient's age to complete this topic MENINGOCOCCAL (Group B) VACCINE SHARED DECISION-MAKING Aged Out No longer eligible based on patient's age to complete this topic Care Teams Caregiver Assisted Living Relationship Specialty Start Date End Date Miracle Schmid MD [address] [place] [phone] [facility] - General 10/21/18
--- OUTSIDE RECORDS SUMMARY | 2024-09-16 07:06 | XMS_ITS | Referral Summary ---
Author Organization [facility] Address [address] [place] [address] Care Team Providers Care Shearing Shed Hand Name Role Phone Miracle Schmid MD Primary Care Provider Source Comments [facility],non-owned Affiliates and Associated Physician Practices is amultiple site organization consisting of ambulatory clinics and hospital sitesin [place], [place], [place] and [place]. This disclosure is being madepursuant to the Care Everywhere program and may not contain all information available regarding this patient. Last updated 18.[facility] Allergies No known active allergies Medications * [...] PPD 02/23/2002 TDAP (7yrs+) 04/07/2010 VARICELLA 04/07/2010,02/23/2002 Social History Tobacco Use Types Packs/Day Years [...] PM CDT Pulse 76 08/28/2015 2:22 PM GROOMING SALON MANAGER Temperature 37.2 C (99 F) 08/28/2015 2:22 PM GROOMING SALON MANAGER Respiratory Rate - - Oxygen Saturation 96% 08/28/2015 2:22 PM GROOMING SALON MANAGER Inhaled Oxygen Concentration - - Weight 94.3 kg (208 lb) 11/25/2018 9:34 AM CDT Height 149.9 cm (4' 11 ) 11/25/2018 9:34 AM CDT Body Mass Index 42.01 11/25/2018 9:34 AM CDT Plan of Treatment Not on file Administered Medications Care Teams Shearing Shed Hand Relationship Specialty Start Date End Date Miracle Schmid MD [address] [place] [phone] PCP - General 10/21/18
--- OUTSIDE RECORDS SUMMARY | 2024-09-16 07:06 | XMS_ITS | Patient Health Summary ---
Author Organization [facility] Address [address] [place] [address] Care Team Providers Care Release And Technical Records Clerk Name Role Phone Miracle Schmid MD Primary Care Provider [phone] Note from [facility],non-owned Affiliates and Associated Physician Practices is amultiple site organization consisting of ambulatory clinics and hospital sitesin [place], [place], [place] and [place]. This disclosure is being madepursuant to the Care Everywhere program and may not contain all information available regarding this patient. Last updated 18.[facility] Allergies No known active allergies Medications * Be aware that medications may not be up to date on this document. Alwaysverify current medications with the patient. * albuterol (PROVENTIL;VENTOLIN) (2.5 MG/3ML) 0.083% nebulizer solution(Started 04/27/2015) Inhale 2.5 mg by mouth every 4 hours as needed for Shortness of Breath or Wheezing (Cough) 1 refill left * AEROCHAMBER PLUS (AEROCHAMBER)(Started 04/27/2015) Use as directed * betamethasone dipropionate (DIPROSONE) 0.05 % ointment Apply to affected area 2 times daily Active Problems Problem Noted Date Diagnosed Date Dyshidrotic hand dermatitis 11/25/2018 Secondary impetiginization 11/25/2018 Bronchitis 09/30/2012 Otitis media, acute 04/27/2010 Well child visit 04/07/2010 Asthma 04/07/2010 Eczema 04/07/2010 Resolved Problems Problem Noted Date Diagnosed Date Resolved Date Asthma exacerbation 09/30/2012 05/20/20 15 Immunizations * INFLUENZA VACCINE, TRIV. (AFLURIA, FLUZONE TRIVALENT; 6MO+) (IIV3)(Given 05/07/2013, 04/07/2010) * DPT(Given 01/11/2003, 09/26/1998, 01/20/1998, 1997, 1997) * HEP B VACCINE, PED/ADOL(Given 01/20/1998, 1997, 1997) * HIB BOOSTER(Given 09/26/1998, 01/20/1998, 1997, 1997) * INFLUENZA VACCINE(Given 05/17/2014, 06/02/2012, 06/04/2011, 05/01/2007, 04/13/2005, 05/09/2004, 04/26/2003, 06/08/2002,05/08/2002) * INFLUENZA VACCINE, QUADR. (FLUZONE; FLULAVAL; FLUARIX; AFLURIA QUADRIVALENT; 6MO+), 0.5 ML (IIV4)(Given 06/10/2015) * MENINGOCOCCAL CONJUGATE (MCV4P)(Given 01/28/2015, 02/05/2012) * MMR(Given 01/11/2003, 09/26/1998) * POLIO IPV(Given 02/23/2002, 01/20/1998, 1997, 1997) * PPD(Given 02/23/2002) * TDAP (7yrs+)(Given 04/07/2010) * VARICELLA(Given 04/07/2010, 02/23/2002) Social History Tobacco Use Types Packs/Day Years [...] PM CDT Pulse 76 08/28/2015 2:22 PM CHURCH WORKER Temperature 37.2 C (99 F) 08/28/2015 2:22 PM CHURCH WORKER Respiratory Rate - - Oxygen Saturation 96% 08/28/2015 2:22 PM CHURCH WORKER Inhaled Oxygen Concentration - - Weight 94.3 kg (208 lb) 11/25/2018 9:34 AM CDT Height 149.9 cm (4' 11 ) 11/25/2018 9:34 AM CDT Body Mass Index 42.01 11/25/2018 9:34 AM CDT Procedures * CULTURE WOUND+GRAM STAIN(Performed 11/28/2018) Performed for Dyshidrotic hand dermatitis * CULTURE STREP GROUP A(Performed 09/27/2014) Performed for Pharyngitis, acute * STREP A SCREEN - POINT OF CARE (AMB)(Performed 09/27/2014) Performed for Pharyngitis, acute * SKIN TEST PPD - POINT OF CARE(Performed 02/07/2012) Performed for Screening examination for pulmonary tuberculosis Results * (ABNORMAL) CULTURE WOUND+GRAM STAIN (11/28/2018 10:00 AM CDT) Culture Aerobic (A) [facility] Comment: CULTURE, AEROBIC BACTERIA WITH GRAM STAIN MICRO NUMBER: [id number] TEST STATUS: FINAL SPECIMEN SOURCE: SKIN SPECIMEN QUALITY: ADEQUATE GRAM STAIN: Rare White blood cells seen Few Gram positive cocci RESULT: Heavy growth of Staphylococcus aureus S.aureus INT [facility] CIPROFLOXACIN R >=8 CLINDAMYCIN R >=8 ERYTHROMYCIN R >=8 GENTAMICIN S <=0.5 LEVOFLOXACIN R >=8 MOXIFLOXACIN R 4 OXACILLIN S 0.5 1 TETRACYCLINE S <=1 TRIMETHOPRIM/SULFA S <=10 VANCOMYCIN S <=0.5 S=Susceptible I=Intermediate R=Resistant * = Not Tested NR = Not Reported NN = See Therapy Comments THERAPY COMMENTS Note 1: Oxacillin-susceptible staphylococci are susceptible to other penicillinase-stable penicillins (e.g. Methicillin, Nafcillin), beta- lactam/beta-lactamase inhibitor combinations, and cephems with staphylococcal indications, including Cefazolin. NO COLLECTION DATE RECEIVED. WE HAVE USED THE DATE THE SPECIMEN WAS RECEIVED BY THIS LABORATORY THE COLLECTION DATE. IF THIS IS INCORRECT, PLEASE CONTACT CLIENT SERVICES. PHONE NUMBER: [phone] Test Performed at: [facility] [phone] RAVI YO MD Microbiology TISSUE SPECIMEN FROM SKIN / Unknown 11/26/2018 1:48 AM CDT Timur Thornton MD LAB - MICROBIOLOGY O RDER[place]LES [facility] [address] [place] [id number] * CULTURE STREP GROUP A (09/27/2014 2:12 PM CDT) Beta-Strep Culture, Group A Only Negative [facility] ACCOUNT BILL Miscellaneous samples (specimen) ENTIRE THROAT (SURFACE REGION OF NECK) / Unknown 09/27/2014 2:12 PM CDT 09/27/2014 9:25 PM CDT Narrative Resulting Agency Comment [facility] [address] [phone] Marcelo Frederick MD LAB - MICROBIOLOGY O [place] [facility] ACCOUNT BILL * STREP A SCREEN - POINT OF CARE (AMB) (09/27/2014) Strep A Rapid POCT Negative Negative Strep A Internal Control NEGATIVE - POSITIVE Throat swab (specimen) ENTIRE THROAT (SURFACE REGION OF NECK) / Unknown 09/27/2014 Marcelo Frederick MD LAB - POINT OF CARE ORDERABLES * SKIN TEST PPD - POINT OF CARE (02/07/2012 12:56 PM CDT) PPD negative MISCELLANEOUS SAMPLE S / Unknown Tamara Wilkins APRN-PHOTONICS ENGINEERING TECHNICIAN LAB - POINT OF CA RE ORDERABLES Care Teams Release And Technical Records Clerk Relationship Specialty Start Date End Date Miracle Schmid MD [address] [place] [phone] [facility] - General 10/21/18
[2024-09-16 07:51] LABS: Hemoglobin 13.1 g/dL (12.0-15.0); Mean Corpuscular HGB Conc 30.5 g/dl (32-36); Mean Corpuscular Hemoglobin 24.3 pg (26-34); Mean Corpuscular Volume 79.8 fl (80-100); Platelet Count Result 364 k/mm3 (150-375); Red Blood Count 5.39 M/mm3 (4.2-5.4); Red Cell Distribution Width 15.4 % (11.5-14.5); White Blood Count 8.2 K/mm3 (4.5-10.0)
[2024-09-16 08:12] LABS: Anion Gap 5 mmol/L (4-12); Blood Urea Nitrogen 13 mg/dL (7-17); Calcium 8.7 mg/dL (8.4-10.2); Carbon Dioxide 28 mmol/L (22-30); Chloride 103 mmol/L (98-107); Creatine Kinase 91 U/L (30-135); Estimated Glomerular Filt Rate > 60; Glucose 108 mg/dL (65-110); Phosphorus 3.4 mg/dL (2.5-4.5); Potassium 4.2 mmol/L (3.4-5.0); Sodium 136 mmol/L (137-145)
[2024-09-16 08:15] LABS: Complement C3 172 mg/dL (88-165)
[2024-09-16 08:16] LABS: CRP 1.8 mg/dL (<1.0)
[2024-09-16 08:52] LABS: Add Urine Microscopic? YES; Appearance Urine Clear (Clear); Bacteria Urine None Seen /hpf; Bilirubin Urine Negative (Negative); Blood Urine 1+ (Negative); Color Urine Yellow (Yellow); Glucose Urine UA Negative (Negative); Ketones Urine Negative (Negative); Leukocyte Esterase Ur Negative LEU/UL (Negative); Nitrate Urine Negative (Negative); Non Pathogenic Casts 0-2; Protein Urine 1+ mg/dL (Negative); Specific Grav Ur 1.017 (1.001-1.035); Squamous Epithelial Cell Urine None Seen /hpf (Few); Urobilinogen Urine 0.2 mg/dL (<2.0); WBC Urine 0-5 /hpf (0-3); pH Urine 6.5 (5.0-9.0)
[2024-09-16 08:58] LABS: Erythrocyte Sedimentation Rate 52 mm/hr (0-20)
[2024-09-16 09:09] LABS: Creatinine Urine 75.4 mg/dL; Total Protein Urine Random 48 mg/dL; Ur Ttl Prot Creatinine Ratio 0.64 mg/mg (0-0.20)
[2024-09-20 11:03] LABS: Kappa\\Lambda Light Chains 0.63 (0.26-1.65); Lambda Light Chain 31.8 mg/L (5.7-26.3)
[2024-09-21 15:32] LABS: Complement Total CH50 51 U/mL (31-60)
[2024-09-21 22:03] LABS: Immunofixation, Serum Normal pattern.
== END 2024-09-16 07:03 | disposition home or self-care (01) ==
LOC: ANHLAB 07:04
PROVIDERS: PCP Nurse Practitioner Adult Health; Visit Provider Internal Medicine Nephrology
DX: R80.1 Persistent proteinuria, unspecified (principal)
CPT/HCPCS: 36415; 80069; 81001; 82550; 82570; 83883; 84156; 85027; 85652; 86038; 86039; 86140; 86160; 86162; 86334

== ENCOUNTER 2024-09-27 07:18 | Outpatient (CLI) | payer OTHER, SELFPAY ==
--- OUTSIDE RECORDS SUMMARY | 2024-09-27 07:22 | XMS_ITS | Clinical Summary ---
Author Organization [facility] Address [address] [place] [address] Care Team Providers Care Doctor Assistant Name Role Phone Miracle Schmid MD Primary Care Provider Source Comments [facility],non-owned Affiliates and Associated Physician Practices is amultiple site organization consisting of ambulatory clinics and hospital sitesin [place], [place], [place] and [place]. This disclosure is being madepursuant to the Care Everywhere program and may not contain all information available regarding this patient. Last updated 18.[facility] Allergies No known active allergies Medications * [...] PM CDT Pulse 76 08/28/2015 2:22 PM HUMAN RESOURCES ADVISOR Temperature 37.2 C (99 F) 08/28/2015 2:22 PM HUMAN RESOURCES ADVISOR Respiratory Rate - - Oxygen Saturation 96% 08/28/2015 2:22 PM HUMAN RESOURCES ADVISOR Inhaled Oxygen Concentration - - Weight 94.3 kg (208 lb) 11/25/2018 9:34 AM CDT Height 149.9 cm (4' 11 ) 11/25/2018 9:34 AM CDT Body Mass Index 42.01 11/25/2018 9:34 AM CDT Plan of Treatment Health Maintenance Due Date Last Done Comments HIV SCREENING 2012 HEPATITIS C SCREENING 05/20/2015 DTAP/TDAP/TD VACCINES (7 - Td or Tdap) 04/07/2020 04/07/2010, 01/11/2003, 09/26/1998, Additional history exists COVID-19 VACCINE ( season) 2024 INFLUENZA VACCINE (#1) 2024 5, [...] on patient's age to complete this topic PNEUMOCOCCAL VACCINE Aged Out No long er eligible based on patient's age to complete this topic Care Teams Doctor Assistant Relationship Specialty Start Date End Date Miracle Schmid MD [address] [place] [phone] PCP - General 10/21/18
[2024-09-27 08:03] LABS: Anion Gap 7 mmol/L (4-12); Blood Urea Nitrogen 11 mg/dL (7-17); Calcium 8.9 mg/dL (8.4-10.2); Carbon Dioxide 28 mmol/L (22-30); Chloride 102 mmol/L (98-107); Estimated Glomerular Filt Rate > 60; Glucose 115 mg/dL (65-110); Potassium 4.7 mmol/L (3.4-5.0); Sodium 137 mmol/L (137-145)
[2024-09-27 10:06] LABS: Total Protein Urine Random 22 mg/dL
[2024-09-27 10:42] LABS: Total Protein Urine 24 Hr 462 mg/24hr (28-141); Total Volume 24 Hour Urine 2100 ml
[2024-09-27 10:42] LABS: Total Volume 24 Hour Urine 2100 ml; Urea Nitrogen 24 Hour Urine 12.5 G/DAY (12-20)
[2024-09-28 07:58] LABS: Creat 24 Hr 1.83 g/24 h (0.50-2.15); Pro/Creat Ratio 253 mg/g creat (<150); Pro/Creat Ratio mg/mg 0.253 (<0.150); Protein,total, 24 Hr Ur 462 mg/24 h (<150)
[2024-09-29 15:58] LABS: Albumin 52 %
== END 2024-09-27 07:19 | disposition home or self-care (01) ==
LOC: ANHLAB 07:19
PROVIDERS: PCP Nurse Practitioner Adult Health; Visit Provider Internal Medicine Nephrology
DX: R80.1 Persistent proteinuria, unspecified (principal)
CPT/HCPCS: 36415; 80048; 81050; 84156; 84540; 86335

== ENCOUNTER 2024-10-15 07:24 | Outpatient (CLI) | payer OTHER, SELFPAY ==
--- NOTE | 2024-10-06 10:02 | PC.NURSE ---
Pre Radiology instructions Report to the outpatient nathaniel leslie on date _[id number]_ at time _0730_ for procedure Time: _30_ YOU MAY BE MONITORED AT HOSPITAL FOR UP TO 4 HOURS AFTER YOUR PROCEDURE. A visitor will be allowed to accompany the patient into the hospital. You and your visitor will be asked to self-screen and do not enter if you have any COVID symptoms. A mask is OPTIONAL within the hospital. Patients are to have no food or drink 6 hours prior to procedure time Driving will be restricted after the procedure, you must have a person to drive you home. Labs will be drawn in preop area and once reviewed, you will be taken to radiology area for procedure. When the procedure is completed, you will be taken to outpatient where you will be monitored for several hours. You may have one visitor in this area. Other than holding anti-coagulants, patient may take other medication(s) as scheduled. Prior to your appointment date patients are instructed to hold anti-coagulants after discussing with ordering provider to stop. If unable to discontinue anti-coagulants please notify radiologist. ? No aspirin or warfarin (Coumadin) for 7 days prior to the procedure. ? No clopidogrel (Plavix), ticagrelor (Brilinta), prasugrel (Effient) or dabigatran (Pradaxa) for 5 days prior to the procedure. ? No rivaroxaban (Xarelto), apixaban (Eliquis), dipyridamole (Aggrenox or Persantine) or cilostazol (Pletal) for 2 days prior to the procedure. Medications to discontinue per physician: Date to take last dose: Please leave all valuables, including medications, at home the day of procedure. The hospital will not accept responsibility for valuables. Wear comfortable, loose fitting clothing.? Follow any additional instructions given to you from ordering provider. Telephone instructions given to ___Ciara___and asked if any additional questions and then verbalized understanding. Patient advised to call scheduling provider office or registration scheduling [phone] if any additional questions.
[2024-10-06 10:26] VITALS: BMI 53.8
[2024-10-15] VITALS (11 sets, daily range): BP systolic 125–152; BP diastolic 64–97; PULSE 55–78; RESP 14–16; TEMP 36.1; O2SAT 94–100; BMI 54.1
--- NOTE | ~2024-10-15 | US_ITS ---
EXAM: US biopsy renal - 10/15/2024 09:05 CDT History: 29 years old Female with GROSS HEMATURIA MARKETING SALES MANAGER: Keron COMPLICATIONS: None TECHNIQUE: After informed written consent was obtained for a renal biopsy, the patient was placed in the prone position and prepped and draped using usual sterile technique. Sterile barrier technique w as used. Conscious sedation was administered under the guidance of the interventional radiologist for 30 minut es. Using ultrasound guidance, the right kidney was identified. The puncture site was anesthetized with l idocaine. A 18 gauge needle was then advanced into the renal cortex and 4 passes were made. The speci mens were sent to pathology for confirmation of successful tissue retrieval. The patient tolerated th e procedure well without complications and was monitored per protocol. IMPRESSION: Successful right renal biopsy with 4 passes. Reviewed, dictated and finalized at location A.
--- OUTSIDE RECORDS SUMMARY | 2024-10-15 07:26 | XMS_ITS | Clinical Summary ---
Author Organization [facility] [employer] Address [address] [place] [address] Care Team Providers Care Bunker Worker Name Role Phone Miracle Schmid MD Primary Care Provider Source Comments [facility] [employer],non-owned Affiliates and Associated Physician Practices is amultiple site organization consisting of ambulatory clinics and hospital sitesin [place], [place], [place] and [place]. This disclosure is being madepursuant to the Care Everywhere program and may not contain all information available regarding this patient. Last updated 18.[facility] [employer] Allergies No known active allergies Medications * [...] QUADRIVALENT; 6MO+), 0.5 ML (IIV4) 06/10/2015 MENINGOCOCCAL ACWY (MCV4P) VAC IM 01/28/2015,07/2011 MMR 01/11/2003,09/26/1998 POLIO IPV 02/23/2002, 8,1997,07/26 PPD [...] PM CDT Pulse 76 08/28/2015 2:22 PM WINDOWS SYSTEMS ADMINISTRATOR Temperature 37.2 C (99 F) 08/28/2015 2:22 PM WINDOWS SYSTEMS ADMINISTRATOR Respiratory Rate - - Oxygen Saturation 96% 08/28/2015 2:22 PM WINDOWS SYSTEMS ADMINISTRATOR Inhaled Oxygen Concentration - - Weight 94.3 [...] history exists COVID-19 VACCINE ( season) 2024 DEPRESSION SCREENING 07/07/2024 INFLUENZA VACCINE (Season Ended) 2025 06/10/2015, 05/17/2014, 05/07/2013, Additional history exists ZOSTER VACCINE (1 of 2) 2047 HEPATITIS [...] age to complete this topic Care Teams Bunker Worker Relationship Specialty Start Date End Date Miracle Schmid MD [address] [place] [phone] PCP - General 10/21/18
[2024-10-15 08:15] LABS: Prothrombin Time 13.2 Seconds (11.1-14.7)
== END 2024-10-15 14:05 | disposition home or self-care (01) ==
PROVIDERS: PCP Nurse Practitioner Adult Health; Referring Provider Internal Medicine Nephrology; Visit Provider Radiology Diagnostic Radiology
PROC: (CPT 76942; principal; 2024-10-15 09:30)
DX: R31.0 Gross hematuria (principal)
CPT/HCPCS: 36415; 50200; 76942; 85610; 88300; 88329

== ENCOUNTER 2024-11-30 07:04 | Outpatient (CLI) | payer OTHER, SELFPAY ==
--- OUTSIDE RECORDS SUMMARY | 2024-11-30 07:09 | XMS_ITS | Clinical Summary ---
Author Organization [facility] [employer] Address [address] [place] [address] Care Team Providers Care Engineering Supplies Sales Name Role Phone Miracle Schmid MD Primary Care Provider [phone] Source Comments [facility] [employer],non-owned Affiliates and Associated Physician Practices is amultiple site organization consisting of ambulatory clinics and hospital sitesin [place], [place], [place] and [place]. This disclosure is being madepursuant to the Care Everywhere program and may not contain all information available regarding this patient. Last updated 18.[facility] [employer] Allergies No known active allergies Medications * Be aware that medications may not be up to date on this document. Alwaysverify current medications with the patient. albuterol (PROVENTIL;VENTOL IN) (2.5 MG/3ML) 0.083% nebulizer solutionIndicatio ns:Asthma exacerbation, moderate persistent (HCC),Bronchitis Inhale 2.5 mg by mouth every 4 hours as needed for Shortness of Breath or Wheezing (Cough) 25 Vial 1 5 Active AEROCHAMBER PLUS (AEROCHAMBER)Raquel cations:Asthma exacerbation, moderate persistent (HCC),Bronchitis Use as directed 1 Each 0 5 Active betamethasone dipropionate (DIPROSONE) 0.05 % ointment [...] 09/30/12 Prednisone, albuterol 04/27/15 Prednisone, albuterol Immunizations Immunization Administration Dates Next Due INFLUENZA VACCINE, TRIV. [...] drink = 0.6 oz pur e alcohol) Comments No Sex and Gender Information Value Date Recorded Sex Assigned at Not on file Legal Sex Female 6:48 AM MANAGER OF CASE Gender Identity Not on file Sexual Orientation Not on file Last Filed Vital Signs Vital Sign Reading Time Taken Comments Blood Pressure 118/78 02/05/2012 4:41 PM CDT Pulse 76 08/28/2015 2:22 PM MANAGER OF CASE Temperature 37.2 C (99 F) 08/28/2015 2:22 PM MANAGER OF CASE Respiratory Rate - - Oxygen Saturation 96% 08/28/2015 2:22 PM MANAGER OF CASE Inhaled Oxygen Concentration - - Weight 94.3 kg (208 lb) 11/25/2018 9:34 AM CDT Height 149.9 cm (4' 11 ) 11/25/2018 9:34 AM CDT Body Mass Index 42.01 11/25/2018 9:34 AM CDT Plan of Treatment Health Maintenance Due Date Last Done Comments PAP SMEAR 1997 HIV SCREENING 2012 HEPATITIS C SCREENING 05/20/2015 PNEUMOCOCCAL VACCINE (1 of 2 - PCV) 2016 DTAP/TDAP/TD VACCINES (7 - Td or Tdap) 04/07/2020 04/07/2010, 01/11/2003, 09/26/1998, Additional history exists COVID-19 VACCINE (1 - 2023- season) 2024 DEPRESSION SCREENING 07/07/2024 INFLUENZA VACCINE [...] on patient's age to complete this topic Insurance MEDICAID - OUT OF [place] [address] [facility] P[facility] SELF PAY NO INSURANCE Member Subscriber Plan / Payer (Ef fective for All Dates) Name:Ric Cain Member ID:Not on file Relation to Subscriber:Not on file Name:RIC CAIN Subscriber ID:Not on file (Home) Address: [address] [place] [phone] Payer ID:Not on file Group ID:Not on file Type:Self Pay Address: [place], [place] * Guarantor: RIC RAZA Account Type Relation to Patient Date of Phone Billing Address Personal/Family 1995 [address]E RAZA [address] [place] [address] Care Teams Engineering Supplies Sales Relationship Specialty Start Date End Date Miracle Schmid MD [address] [place] [phone] PCP - General 10/21/18
[2024-11-30 08:11] LABS: Hematocrit 45.5 % (37.0-47.0); Hemoglobin 13.5 g/dL (12.0-15.0)
[2024-11-30 09:01] LABS: Iron 64 ug/dL (37-170)
[2024-11-30 09:11] LABS: Percent Iron Saturation 15 % (20-50)
[2024-12-01 04:13] LABS: Progesterone <0.5 ng/mL
== END 2024-11-30 07:05 | disposition home or self-care (01) ==
PROVIDERS: PCP Family Medicine; Visit Provider Obstetrics & Gynecology
DX: N97.0 Female infertility associated with anovulation (principal); R80.1 Persistent proteinuria, unspecified; E61.1 Iron deficiency; R79.89 Other specified abnormal findings of blood chemistry
CPT/HCPCS: 36415; 82607; 82728; 83540; 83550; 84144; 85014; 85018

== ENCOUNTER 2024-12-21 08:35 | Outpatient (CLI) | payer OTHER, SELFPAY ==
--- NOTE | ~2024-12-21 | CT_ITS ---
CT abdomen pelvis wo con Ordering provider: Blade Sherman MD History: 29 years Female with . Right flank pain and hematuria . Comparison: None. Technique: CT abdomen and pelvis without IV and without oral contrast. Automated exposure control and iterative reconstruction technique were employed. The dose-length product was 1483.74 mGy-cm. Findings: VISUALIZED LOWER CHEST: Normal. UPPER ABDOMINAL ORGANS: Liver: Hepatomegaly. Gallbladder: Status post cholecystectomy. Spleen: Normal. Stomach/duodenum: Normal. Pancreas: Normal. Adrenals: Normal. Kidneys: Normal. PELVIC ORGANS: The bladder is normal. Left ovarian cyst is seen measuring 2.8 cm. BOWEL AND MESENTERY: Colon: No evidence of diverticulitis.. Normal appendix. Small Bowel: Normal. No obstruction. Peritoneum/mesentery: No free air or free fluid. No mesenteric lymphadenopathy. RETROPERITONEUM: Normal aorta. No retroperitoneal lymphadenopathy. MUSCULOSKELETAL: Superficial soft tissues: The superficial soft tissues are normal. Bones: Normal spine. IMPRESSION: 1. No evidence of appendicitis, diverticulitis or intestinal obstruction. No definite kidney stones. 2. 2.8 cm left ovarian cyst. 3. Hepatomegaly. Reviewed, dictated and finalized at location A. IMPRESSION: 1. No evidence of appendicitis, diverticulitis or intestinal obstruction. No d efinite kidney stones. 2. 2.8 cm left ovarian cyst. 3. Hepatomegaly.
--- NOTE | ~2024-12-21 | XR_ITS ---
XR abdomen/kub 1V Ordering provider: Blade Sherman MD History: . Right flank pain and hematuria rule out renal ston . Comparison: July 18, 2023 FINDINGS: BOWEL: Nonobstructive bowel gas pattern. ORGANOMEGALY: None. SIGNIFICANT PATHOLOGIC CALCIFICATIONS: Radiopaque shadow is seen in the right renal area which may be a stone but can be in the fecal material and measures 1.5 cm. No other stones seen. OTHER: No free air is seen under the diaphragm. IMPRESSION: NO ACUTE ABDOMINAL FINDINGS. Possible stone in the right kidney lower pole. Noncontrast CT is better for evaluation. Reviewed, dictated and finalized at location A. IMPRESSION: NO ACUTE ABDOMINAL FINDINGS. Possible stone in the right kidney lower pole. Noncontrast CT is better for mariza luation.
--- OUTSIDE RECORDS SUMMARY | 2024-12-21 08:51 | XMS_ITS | Clinical Summary ---
Author Organization [facility] [employer] Address [address] [place] [address] Care Team Providers Care Aurist Name Role Phone Miracle Schmid MD Primary Care Provider [phone] Source Comments [facility] [employer],non-owned Affiliates and Associated Physician Practices is amultiple site organization consisting of ambulatory clinics and hospital sitesin [place], [place], [place]. This disclosure is being madepursuant to the Care Everywhere program and may not contain all information available regarding this patient. Last updated 18.[facility] [employer] Allergies No known active allergies Medications * [...] on file Legal Sex Female 6:48 AM CLINICAL TRIAL EDUCATOR Gender Identity Not on file Sexual Orientation Not on file Last Filed Vital Signs Vital Sign Reading Time Taken Comments Blood Pressure 118/78 02/05/2012 4:41 PM CDT Pulse 76 08/28/2015 2:22 PM CLINICAL TRIAL EDUCATOR Temperature 37.2 C (99 F) 08/28/2015 2:22 PM CLINICAL TRIAL EDUCATOR Respiratory Rate - - Oxygen Saturation 96% 08/28/2015 2:22 PM CLINICAL TRIAL EDUCATOR Inhaled Oxygen Concentration - - Weight 94.3 kg (208 lb) 11/25/2018 9:34 AM CDT Height 149.9 cm (4' 11) 11/25/2018 9:34 AM CDT Body Mass Index 42.01 11/25/2018 9:34 AM CDT Plan of Treatment Health Maintenance Due Date Last Done Comments HIV SCREENING 2012 HEPATITIS C SCREENING 05/20/2015 PNEUMOCOCCAL VACCINE (1 of 2 - PCV) 2016 PAP SMEAR 2018 DTAP/TDAP/TD VACCINES (7 - Td or Tdap) [...] topic Insurance MEDICAID - OUT OF STATE [address] [employer]ETNA [facility] SELF PAY NO INSURANCE Member Subscriber Plan / Payer (Ef fective for All Dates) Name:Ric Cain Member ID:Not on file Relation to Subscriber:Not on file Name:RIC CAIN Subscriber ID:Not on file (Home) Address: [address] [place] [id number] Payer ID:Not on file Group ID:Not on file Type:Self Pay Address: [facility] * Guarantor: RIC RAZA Account Type Relation to Patient Date of Phone Billing Address Personal/Family 1995 ASHLEE RAZA [address] [place] [id number] Care Teams Aurist Relationship Specialty Start Date End Date Miracle Schmid MD [address] [place] [phone] PCP - General 10/21/18
== END 2024-12-21 08:36 | disposition home or self-care (01) ==
PROVIDERS: PCP Family Medicine; Visit Provider Family Medicine
DX: N83.202 Unspecified ovarian cyst, left side (principal); R16.0 Hepatomegaly, not elsewhere classified; R31.0 Gross hematuria
CPT/HCPCS: 74018; 74176

== ENCOUNTER 2025-02-04 11:33 | Outpatient (CLI) | payer OTHER, SELFPAY ==
--- OUTSIDE RECORDS SUMMARY | 2025-02-04 11:41 | XMS_ITS | Clinical Summary ---
Author Organization [employer] Address [address] [place] [address] Care Team Providers Care Home Care Coordinator Name Role Phone Miracle Schmid MD Primary Care Provider [phone] Source Comments [facility] [employer],non-owned Affiliates and Associated Physician Practices is amultiple site organization consisting of ambulatory clinics and hospital sitesin [place], [place], [place] and [place]. This disclosure is being madepursuant to the Care Everywhere program and may not contain all information available regarding this patient. Last updated 18.[employer] Allergies No known active allergies Medications * [...] on file Legal Sex Female 6:48 AM CAB DRIVER Gender Identity Not on file Sexual Orientation Not on file Last Filed Vital Signs Vital Sign Reading Time Taken Comments Blood Pressure 118/78 02/05/2012 4:41 PM CDT Pulse 76 08/28/2015 2:22 PM CAB DRIVER Temperature 37.2 C (99 F) 08/28/2015 2:22 PM CAB DRIVER Respiratory Rate - - Oxygen Saturation 96% 08/28/2015 2:22 PM CAB DRIVER Inhaled Oxygen Concentration - - Weight 94.3 [...] 09/26/1998, Additional history exists COVID-19 VACCINE ( - 2023- season) 2024 HPV VACCINE (1 - 3-dose SCDM series) 2024 DEPRESSION SCREENING 07/07/2024 INFLUENZA VACCINE (#1) 2025 5, 05/17/2014, 05/07/2013, Additional history exists ZOSTER VACCINE (1 of 2) 2047 HEPATITIS B VACCINE Completed 01/20/1998, 1997, 1997 HIB VACCINE Completed 09/26/1998, 01/04, 1997, Additional history exists MENINGOCOCCAL GROUPS A/C/Y/W VACCINE Completed 01/28/2015, 02/05/2012 MENINGOCOCCAL (Group B) VACCINE SHARED DECISION-MAKING Aged Out No longer eligible based on patient's age to complete this topic Insurance MEDICAID - OUT OF STATE [address] [employer]ETNA [facility] SELF PAY NO INSURANCE Member Subscriber Plan / Payer (Ef fective for All Dates) Name:Ric Cain Member ID:Not on file Relation to Subscriber:Not on file Name:RIC CAIN Subscriber ID:Not on file (Home) Address: [address] [place] [phone] Payer ID:Not on file Group ID:Not on file Type:Self Pay Address: [facility] * Guarantor: RIC RAZA Account Type Relation to Patient Date of Phone Billing Address Personal/Family 1995 [place] LASHONDA RAZA [address] [place] [id number] Care Teams Home Care Coordinator Relationship Specialty Start Date End Date Miracle Schmid MD [address] [place] [phone] PCP - General 10/21/18
--- OUTSIDE RECORDS SUMMARY | 2025-02-04 11:41 | XMS_ITS | Encounter Summary ---
Author Organization [facility] Address Critical access hospital[address] [place] [address] Care Team Providers Care Dolly Driver Name Role Phone Desire Alanis [facility] Primary Care Provider + Encounter Details Date Type Department Care Team (Late st Contact Info) Description 04/04/2023 [employer] Message [facility] [address] [place] [address] Desire Alanis, [facility] [address] [place] [address] Follow up Social History Tobacco Use Types Packs/Day Years Used Date Smoking Tobacco: Never Smokeless Tobacco: Never Alcohol Use Standard Drinks/Week Comments No 0 (1 standard drink = 0.6 oz pur e alcohol) PHQ-2 Answer Date Recorded Patient Health Questionnaire-2 Score 0 11/20/2022 Comments No Sex and Gender Information Value Date Recorded Sex Assigned at Female 01/09/2025 8:52 PM CDT Legal Sex Female 8:11 PM CDT Gender Identity Not on file Sexual Orientation Not on file documented as of this encounter Plan of Treatment Not on file documented as of this encounter Visit Diagnoses Not on filedocumented in this encounter Care Teams Dolly Driver Relationship Specialty Start Date End Date Desire Alanis [facility] [address] [place] [phone] PCP - General NURSE PRACTITIONER 09/16/22 documented as of this encounter
--- OUTSIDE RECORDS SUMMARY | 2025-02-04 11:41 | XMS_ITS | Encounter Summary ---
Author Organization [facility] Address [facility] [place] [address] Care Team Providers Care Livestock Farm Workers Name Role Phone Desire Alanis [facility] Primary Care Provider + Encounter Details Date Type Department Care Team (Late st Contact Info) Description 09/20/2022 [employer] Message [facility] [address] [place] [phone] [facility] [address] [place] [address] Test results Social History Tobacco Use Types Packs/Day Years Used Date Smoking Tobacco: Never Smokeless Tobacco: Never Alcohol Use Standard Drinks/Week Comments No 0 (1 standard drink = 0.6 oz pur e alcohol) PHQ-2 Answer Date Recorded Patient Health Questionnaire-2 Score 0 09/16/2022 Comments No Sex and Gender Information Value Date Recorded Sex Assigned at Female 01/09/2025 8:52 PM CDT Legal Sex Female 8:11 PM CDT Gender Identity Not on file Sexual Orientation Not on file COVID-19 Exposure Response Date Recorded In the last 10 days, have yo u been in contact with someone who was confirmed or suspected to have Coronavirus/COVID-19? No / Unsure 09/16/2022 7:34 AM CDT documented as of this encounter Plan of Treatment Not on file documented as of this encounter Visit Diagnoses Not on filedocumented in this encounter Care Teams Livestock Farm Workers Relationship Specialty Start Date End Date Desire Alanis, [employer]OE [employer]- [address] [place] [address] PCP - General NURSE PRACTITIONER 09/16/22 documented as of this encounter
--- OUTSIDE RECORDS SUMMARY | 2025-02-04 11:41 | XMS_ITS | Clinical Summary ---
Author Organization [facility] Address [facility] [place] [address] Care Team Providers Care Steam Gigger Name Role Phone Desire Alanis Jude [facility] Primary Care Provider + Allergies No known active allergies Medications albuterol sulfate HFA 108 (90 Base) MCG/ACT inhalerIndications :Mild intermittent asthma without complication (HHS/HCC) Inhale 2 puffs into the lungs every 6 (six) hours as needed for Wheezing or Shortness of breath. 6.7 g 3 Active Dupilumab 300 MG/2ML Solution Pen-injector Inject 300 mg into the skin every 14 (fourteen) days. Active valACYclovir (VALTREX) 1 g tablet 3 Active levothyroxine (SYNTHROID) 112 MCG tabletIndications: Subclinical hypothyroidism Take 1 tablet (112 mcg total) by mouth every morning. 90 tablet 1 3 Active sertraline (ZOLOFT) 50 MG tabletIndications: Anxiety Take 1 tablet (50 mg total) by mouth daily. 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) 04/07/2010 Eczema 04/07/2010 Resolved Problems Problem Noted Date Diagnosed Date Resolved Date depression 11/21/20212022 Encounters Date Type Department Care Team Description 01/09/2025 8:54 PM CDT - 01/09/2025 10:44 PM CDT Emergency [facility] Emergency Room [address] [place] [address] Gian Reyez DO Ankle Injury (Right ankle) Discharge Disposition: Home or Self Care (Routine Discharge) 01/09/2025 Travel from Last 3 Months Immunizations Immunization Administration Dates Next Due Afluria 36 MONTHS+ (Prefille d Syringe IIV4) 04/29/2019 Dpt/Hib 01/11/2003, 9,01/20/1998,09/26,1997 Dtap (Acel-Immune) 09/26/1998, 8,1997,07/26 Hepatitis B Pediatric 01/20/1998,1997,05/08 Hib (Generic) 09/26/1998,1997,1997 Hib (Prohibit) 01/20/1998 Hib-Hepatitis B (Comvax) 01/20/1998 Influenza (Generic) 05/17/2014, 3,06/02/2012,06/04,04/07/2010,05/01/2007,04/13/2005 ,05/09/2004,04/26/2003,06/08/2002,08/2001 Influenza Adult (Generic) 04/17/2022,,04/29/2019,05/02,06/10/2015 MMR (MMRII) 01/11/2003,09/26/1998 Meningococcal (Menactra) 01/28/2015,02/05/2012 Polio IPV (Ipol) 02/23/2002 Polio Opv (Generic) 01/20/1998,1997,1997 Tdap (Generic) 07/18/2021,04/07/2010 Varicella (Varivax) 04/07/2010,02/23/2002 Family History Medical History Relation Comments Asthma Brother Mental Health Brother Schizophrenia Deep vein thrombosis Father Hypertension Father None Mother Asthma Sister Relation Status Comments Brother Father Mother Sister Social History Tobacco Use Types Packs/Day Years Used Date Smoking Tobacco: Never Smokeless Tobacco: Never Tobacco Cessation:Counseling Given: Not Answered Alcohol Use Standard Drinks/Week Comments No 0 [...] Sign Reading Time Taken Comments Blood Pressure 168/106 01/09/2025 8:55 PM CDT Pulse 105 01/09/2025 8:55 PM CDT Temperature 36.4 C (97.6 F) 01/09/2025 8:55 PM CDT Respiratory Rate 18 01/09/2025 8:55 PM CDT Oxygen Saturation 95% 01/09/2025 8:55 PM CDT Inhaled Oxygen Concentration - - Weight 118.8 kg (262 lb) 01/09/2025 8:55 PM CDT Height 149.9 cm (4' 11) 01/09/2025 8:55 PM CDT Body Mass Index 52.92 01/09/2025 8:55 PM CDT Plan of Treatment Health Maintenance Due Date Last Done Comments Cervical Cancer Screening Pap Smear (Age 21 to 29) Every 3 Years 1997 Cervical Cancer Screening 1997 Pneumococcal Vaccine: Pediatrics (0 to 5 Years) and At-Risk Patients (6 to 49 Years) (1 of 2 - PCV) 2016 Annual Physical 09/17/2023 09/16/2022 COVID-19 Vaccine ( season) 2024 08/27/2020, 08/01/2020 HPV Vaccines (1 - 3-dose SCDM series) 2024 PHQ-2 (Physician [place]) 07/07/2024 DTaP, Tdap and Td Vaccines (7 - Td or Tdap) 07/18/2031 07/18/2021, 04/07/2010, 01/11/2003, Additional history exists Hepatitis B Vaccines Completed 01/20/1998, 01/20/1998, 1997, Additional history exists Meningococcal Vaccine Completed 01/28/2015, 012 Hepatitis C Completed 09/17/2022 Meningococcal B Vaccine Aged Out No l onger eligible based on patient's age to complete this topic RSV Immunizations Under 20 Months Aged Out No longer eligible based on patient's age to complete this topic Procedures Procedure Name Priority Date/Time Associated Diagnosis Comments XR ANKLE RT M3V STAT 01/09/2025 9:33 PM CDT HEPATITIS C ANTIBODY W/RFX TO HCV RNA 09/17/2022 7:47 AM CDT from Last 3 Months or Most Recently Relevant to Health Maintenance Results * XR ANKLE RT M3V (01/09/2025 9:33 PM CDT) Anatomical Region Laterality Modality Ankle Radiographic Theresa ging 01/09/2025 10:2 3 PM CDT Impressions 01/09/2025 10:34 PM CDT IMPRESSION: Moderate to marked diffuse soft tissue swelling in the right ankle with no acute fracture or dislocation. Moderate to marked diffuse soft tissue thickening in right ankle with no acute osseous abnormality. Referred By: Interpreted By: Nereida Bales MD, 01/09/2025 10:23 PM Narrative 01/09/2025 10:34 PM CDT [facility] [address] [place] [address] EXAMINATION: XR ANKLE RT 3V, 01/09/2025 10:23 PM INDICATION: Pain in the right ankle after twisting it today. COMPARISON: None. FINDINGS: There is moderate to marked diffuse soft tissue swelling in right ankle. No acute fracture or dislocation. No radiopaque foreign body. No significant arthritic changes. No calcaneal spurs or enthesophytes. Procedure Note Nereida Bales MD - 01/09/2025 [facility] [place] [address] [place] [address] EXAMINATION: XR ANKLE RT 3V, 01/09/2025 10:23 PM INDICATION: Pain in the right ankle after twisting it today. COMPARISON: None. FINDINGS: There is moderate to marked diffuse soft tissue swelling inright ankle. No acute fracture or dislocation. No radiopaque foreignbody. No significant arthritic changes. No calcaneal spurs orenthesophytes. IMPRESSION: Moderate to marked diffuse soft tissue swelling in the right ankle with noacute fracture or dislocation. Moderate to marked diffuse soft tissuethickening in right ankle with no acute osseous abnormality. Referred By: Interpreted By: Nereida Bales MD, 01/09/2025 10:23 PM Gian Reyez DO GENERAL IMAGING Final Result * HEPATITIS C ANTIBODY W/RFX TO HCV RNA (09/17/2022 7:47 AM CDT) HEPATITIS C AB Non Reactive Non Reacti [facility] 1 INTERPRETATION Comment [facility] Comment: Not infected with HCV unless early or acute infection is suspected (which may be delayed in an immunocompromised individual), or other evidence exists to indicate HCV infection. 09/17/2022 7:47 AM CDT 09/17/2022 Narrative [facility] - 09/18/2022 9:37 AM CDT Performed at: - [address] [id number] Publicity Expert: Jack Houser PhD, Phone: [phone] Desire Alanis [facility] Final Re sult [facility] [address] [place] [address] [facility] 1 from Last 3 Months or Most Recently Relevant to Health Maintenance Insurance [facility] Care Teams Steam Gigger Relationship Specialty Start Date End Date Desire Alanis, ASSISTANT DIRECTOR OF SECURITY-BC [address] [place] [address] PCP - General NURSE PRACTITIONER 09/16/22
--- OUTSIDE RECORDS SUMMARY | 2025-02-04 11:41 | XMS_ITS | Encounter Summary ---
Author Organization [facility] Address [address] [place] [address] Care Team Providers Care Certified Professional Midwife Name Role Phone Desire Alanis [facility] Primary Care Provider + Encounter Details Date Type Department Care Team (Late st Contact Info) Description 01/01/2023 MyChart Message Enc [facility] - [facility] [address] [place] [address] [employer], [facility] Provider Air Quality Message Social History Tobacco Use Types Packs/Day Years [...] on filedocumented in this encounter Care Teams Certified Professional Midwife Relationship Specialty Start Date End Date Desire Alanis, [facility]- [address] [place] [address] PCP - General NURSE PRACTITIONER 09/16/22 documented as of this encounter
--- OUTSIDE RECORDS SUMMARY | 2025-02-04 11:41 | XMS_ITS | Encounter Summary ---
Author Organization [facility] Address [facility] [place] [address] Care Team Providers Care Rabble Furnace Tender Name Role Phone Desire Alanis [facility] Primary Care Provider + Encounter Details Date Type Department Care Team (Late st Contact Info) Description 11/06/2022 [employer] Message [facility] [address] [place] [phone] [facility] [address] [place] [address] Medication Social History Tobacco Use Types Packs/Day Years Used Date Smoking Tobacco: Never Smokeless Tobacco: Never Alcohol Use Standard Drinks/Week Comments No 0 (1 standard drink = 0.6 oz pur e alcohol) PHQ-2 Answer Date Recorded Patient Health Questionnaire-2 Score 0 11/07/2022 Comments No Sex and Gender Information Value Date Recorded Sex Assigned at Female 01/09/2025 8:52 PM CDT Legal Sex Female 8:11 PM CDT Gender Identity Not on file Sexual Orientation Not on file COVID-19 Exposure Response Date Recorded In the last 10 days, have yo u been in contact with someone who was confirmed or suspected to have Coronavirus/COVID-19? No / Unsure 11/07/2022 10:48 AM CDT documented as of this encounter Functional Status * Over the past 2 weeks, how often have you been bothered by any of the following problems? Question Answer Date of Assessment Author Status Little interest or pleasure in doing things Not at all 11/07/2022 11:10 AM CDT Alicia Brown MA Active Feeling down, depressed, or hopeless Not at all 11/07/2022 11:10 AM CDT Diana Brown MA Active Patient Health Questionnaire-2 Score 0 11/07/2022 11:10 AM CDT Juanita Brown MA Active documented as of this encounter Progress Notes * Desire Thao NP - 11/06/2022 12:15 PM CDT Yes :) * Heidy Calderon RN - 11/06/2022 12:00 PM CDT Ok to inform patient you have never seen her for this and needs to be evaluated? documented in this encounter Plan of Treatment Not on file documented as of this encounter Visit Diagnoses Not on filedocumented in this encounter Care Teams Rabble Furnace Tender Relationship Specialty Start Date End Date Desire Alanis [facility] [address] [place] [address] PCP - General NURSE PRACTITIONER 09/16/22 documented as of this encounter
== END 2025-02-04 11:34 | disposition home or self-care (01) ==
PROVIDERS: PCP Family Medicine; Visit Provider Obstetrics & Gynecology
DX: N97.9 Female infertility, unspecified (principal)
CPT/HCPCS: 84144

== ENCOUNTER 2025-03-04 11:34 | Outpatient (CLI) | payer OTHER, SELFPAY | END 2025-03-04 11:35 | disposition home or self-care (01) | LOC: ANHLAB 11:36 | PROVIDERS: PCP Family Medicine; Visit Provider Obstetrics & Gynecology | DX: Z31.41 Encounter for fertility testing (principal) | CPT/HCPCS: 84144 ==

== ENCOUNTER 2025-04-06 16:41 | Outpatient (CLI) | payer OTHER, SELFPAY ==
--- OUTSIDE RECORDS SUMMARY | 2025-04-06 16:44 | XMS_ITS | Clinical Summary ---
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/25/2018 Asthma ([facility]) 04/07/2010 Eczema 04/07/2010 Resolved Problems Problem Noted Date Diagnosed Date Resolved Date depression 11/21/20212022 Encounters Date Type Department Care Team Description 01/09/2025 8:54 PM CDT - 01/09/2025 10:44 PM CDT Emergency [facility] Emergency Room [address] [place] [address] Gian Reyez DO Ankle Injury (Right ankle) [...] - PCV) 2016 Annual Physical 09/17/2023 09/16/2022 HPV Vaccines (1 - 3-dose SCDM series) 2024 PHQ-2 (Physician [place]) 07/07/2024 COVID-19 Vaccine (3 - 2024- season) 2025 08/27/2020, 08/01/2020 DTaP, Tdap and Td Vaccines (7 - [...] 10:23 PM Narrative 01/09/2025 10:34 PM CDT [facility] [address] [place] [address] EXAMINATION: XR ANKLE RT 3V, 01/09/2025 10:23 PM INDICATION: Pain in the right ankle after twisting it today. COMPARISON: None. FINDINGS: There is moderate to marked diffuse soft tissue swelling in right ankle. No acute fracture or dislocation. No radiopaque foreign body. No significant arthritic changes. No calcaneal spurs or enthesophytes. Procedure Note Nereida Bales MD - 01/09/2025 [facility] [address] [place] [address] EXAMINATION: XR ANKLE RT 3V, 01/09/2025 10:23 [...] 09/18/2022 9:37 AM CDT Performed at: - [address] [id number] Express Clerk: Jack Houser PhD, Phone: [phone] Desire Alanis [facility] Final Re sult [facility] [address] [place] [address] [facility] 1 from Last 3 Months or Most Recently Relevant to Health Maintenance Insurance [facility] Care Teams Spiral Tube Winder Helper Relationship Specialty Start Date End Date Desire Alanis, ACETYLENE OPERATOR-BC [address] [place] [address] PCP - General NURSE PRACTITIONER 09/16/22
--- OUTSIDE RECORDS SUMMARY | 2025-04-06 16:44 | XMS_ITS | Encounter Summary ---
Author Organization [facility] Address [facility] [place] [address] Care Team Providers Care Financial Services Professional Name Role Phone Desire Alanis [facility] Primary Care Provider + Encounter Details Date Type Department Care Team (Late st Contact Info) Description 04/04/[address] [facility] [address] [place] [address] Desire Alanis, [facility] [address] [place] [address] Follow up Social History Tobacco [...] on filedocumented in this encounter Care Teams Financial Services Professional Relationship Specialty Start Date End Date Desire Alanis [facility] [address] [place] [address] PCP - General NURSE PRACTITIONER 09/16/22 documented as of this encounter
--- OUTSIDE RECORDS SUMMARY | 2025-04-06 16:44 | XMS_ITS | Clinical Summary ---
Author Organization [employer] [facility] Address [address] [place] [address] Care Team Providers Care Technical Spec Name Role Phone Miracle Schmid MD Primary Care Provider [phone] Source Comments [facility],non-owned Affiliates and Associated Physician Practices is amultiple site organization consisting of ambulatory clinics and hospital sitesin [place], [place], [place] and [place]. This disclosure is being madepursuant to the Care Everywhere program and may not contain all information available regarding this patient. Last updated 18.[employer] [facility] Allergies No known active allergies Medications * [...] on file Legal Sex Female 6:48 AM TERRA COTTA ROOFER HELPER Gender Identity Not on file Sexual Orientation Not on file Last Filed Vital Signs Vital Sign Reading Time Taken Comments Blood Pressure 118/78 02/05/2012 4:41 PM CDT Pulse 76 08/28/2015 2:22 PM TERRA COTTA ROOFER HELPER Temperature 37.2 C (99 F) 08/28/2015 2:22 PM TERRA COTTA ROOFER HELPER Respiratory Rate - - Oxygen Saturation 96% 08/28/2015 2:22 PM TERRA COTTA ROOFER HELPER Inhaled Oxygen Concentration - - Weight 94.3 [...] 04/07/2020 04/07/2010, 01/11/2003, 09/26/1998, Additional history exists HPV VACCINE (1 - 3-dose SCDM series) 2024 DEPRESSION SCREENING 07/07/2024 COVID-19 VACCINE ( - 2023- season) 2025 INFLUENZA VACCINE (#1) 2025 5, 05/17/2014, 05/07/2013, [...] topic Insurance MEDICAID - OUT OF STATE [address] AETNA [facility] SELF PAY NO INSURANCE Member Subscriber Plan / Payer (Ef fective for All Dates) Name:Ric Cain Member ID:Not on file Relation to Subscriber:Not on file Name:RIC CAIN Subscriber ID:Not on file (Home) Address: [address] [place] [phone] Payer ID:Not on file Group ID:Not on file Type:Self Pay Address: [facility] * Guarantor: RIC RAZA Account Type Relation to Patient Date of Phone Billing Address Personal/Family 1995 [place] L[address]ONDA RAZA [address] [place] [phone] Care Teams Technical Spec Relationship Specialty Start Date End Date Miracle Schmid MD [address] [place] [phone] PCP - General 10/21/18
--- OUTSIDE RECORDS SUMMARY | 2025-04-06 16:44 | XMS_ITS | Encounter Summary ---
Author Organization [facility] Address [facility] [place] [address] Care Team Providers Care A/C Technician Name Role Phone Desire Alanis [facility] Primary Care Provider + Encounter Details Date Type Department Care Team (Late st Contact Info) Description 11/06/2022 NetWitness Message [facility] [address] [place] [phone] [facility] [address] [place] [address] Medication Social History Tobacco Use Types [...] on filedocumented in this encounter Care Teams A/C Technician Relationship Specialty Start Date End Date Desire Alanis FNP-SALBADOR [address] [place] [address] PCP - General NURSE PRACTITIONER 09/16/22 documented as of this encounter
--- OUTSIDE RECORDS SUMMARY | 2025-04-06 16:44 | XMS_ITS | Encounter Summary ---
Author Organization [facility] Address [address] [place] [address] Care Team Providers Care Parquet Floor Layer'S Helper Name Role Phone Desire Alanis [facility] Primary Care Provider + Encounter Details Date Type Department Care Team (Late st Contact Info) Description 01/01/2023 MyChart Message Enc [facility] Medical [facility] - [facility] [address] [place], [place] [address] [facility], [facility] Provider Air Quality Message Social History Tobacco [...] on filedocumented in this encounter Care Teams Parquet Floor Layer'S Helper Relationship Specialty Start Date End Date Desire Alanis, [facility]- [address] [place] [address] PCP - General NURSE PRACTITIONER 09/16/22 documented as of this encounter
--- OUTSIDE RECORDS SUMMARY | 2025-04-06 16:44 | XMS_ITS | Encounter Summary ---
Author Organization [facility] Address [facility] [place] [address] Care Team Providers Care Senior Electrical Engineer Name Role Phone Desire Alanis [facility] Primary Care Provider + Encounter Details Date Type Department Care Team (Late st Contact Info) Description 09/20/2022 adQ Message [facility] [address] [place] [phone] [facility] [address] [place] [address] Test results Social History Tobacco Use [...] on filedocumented in this encounter Care Teams Senior Electrical Engineer Relationship Specialty Start Date End Date Desire Alanis, AIRCRAFT SHEET METAL MECHANIC- [address] [place] [address] PCP - General NURSE PRACTITIONER 09/16/22 documented as of this encounter
== END 2025-04-06 16:42 | disposition home or self-care (01) ==
LOC: ANHLAB 16:42
PROVIDERS: PCP Family Medicine; Visit Provider Obstetrics & Gynecology
DX: N97.0 Female infertility associated with anovulation (principal)
CPT/HCPCS: 84144

== ENCOUNTER 2025-05-02 13:47 | Outpatient (CLI) | payer OTHER, SELFPAY ==
--- OUTSIDE RECORDS SUMMARY | 2025-05-02 15:25 | XMS_ITS | Clinical Summary ---
Author Organization [employer] Address [address] [place] [address] Care Team Providers Care Apiculture Teacher Name Role Phone Miracle Schmid MD Primary Care Provider [phone] Source Comments [facility] [employer],non-owned Affiliates and Associated Physician Practices is amultiple site organization consisting of ambulatory clinics and hospital sitesin [place], [place], [place] and [place]. This disclosure is being madepursuant to the Care Everywhere program and may not contain all information available regarding this patient. Last updated 18.[employer] Allergies No known active allergies Medications * [...] on file Legal Sex Female 6:48 AM BULL GANG SUPERVISOR Gender Identity Not on file Sexual Orientation Not on file Last Filed Vital Signs Vital Sign Reading Time Taken Comments Blood Pressure 118/78 02/05/2012 4:41 PM CDT Pulse 76 08/28/2015 2:22 PM BULL GANG SUPERVISOR Temperature 37.2 C (99 F) 08/28/2015 2:22 PM BULL GANG SUPERVISOR Respiratory Rate - - Oxygen Saturation 96% 08/28/2015 2:22 PM BULL GANG SUPERVISOR Inhaled Oxygen Concentration - - Weight 94.3 [...] topic Insurance MEDICAID - OUT OF STATE [address] AETNA [facility] SELF PAY NO INSURANCE Member Subscriber Plan / Payer (Ef fective for All Dates) Name:Ric Cain Member ID:Not on file Relation to Subscriber:Not on file Name:RIC CAIN Subscriber ID:Not on file (Home) Address: [address] [place] [phone] Payer ID:Not on file Group ID:Not on file Type:Self Pay Address: [facility] * Guarantor: RIC RAZA Account Type Relation to Patient Date of Phone Billing Address Personal/Family 1995 [address] RAZA [address] [place] [id number] Care Teams Apiculture Teacher Relationship Specialty Start Date End Date Miracle Schmid MD [address] [place] [phone] PCP - General 10/21/18
== END 2025-05-02 13:48 | disposition home or self-care (01) ==
PROVIDERS: PCP Family Medicine; Visit Provider Obstetrics & Gynecology
DX: Z31.41 Encounter for fertility testing (principal)
CPT/HCPCS: 84144

== ENCOUNTER 2025-05-30 11:22 | Outpatient (CLI) | payer OTHER, SELFPAY ==
--- OUTSIDE RECORDS SUMMARY | 2025-05-30 13:35 | XMS_ITS | Encounter Summary ---
Author Organization [facility] Address [facility] [place] [address] Care Team Providers Care Septic Tank Cleaner Name Role Phone Desire Alanis [facility] Primary Care Provider + Encounter Details Date Type Department Care Team (Late st Contact Info) Description 04/04/2023 [employer] [facility] [address] [place] [address] Desire Alanis, [facility] [address] [place] [address] Follow up Social History Tobacco [...] on filedocumented in this encounter Care Teams Septic Tank Cleaner Relationship Specialty Start Date End Date Desire Alanis, [facility] [address] [place] [address] PCP - General NURSE PRACTITIONER 09/16/22 documented as of this encounter
--- OUTSIDE RECORDS SUMMARY | 2025-05-30 13:35 | XMS_ITS | Encounter Summary ---
Author Organization [facility] Address [facility] [place] [address] Care Team Providers Care News Anchor Name Role Phone Desire Alanis [facility] Primary Care Provider + Encounter Details Date Type Department Care Team (Late st Contact Info) Description 11/06/2022 [employer] [facility] [address] [place] [address] Desire Alanis, [facility] [address] [place] [address] Medication Social History Tobacco Use Types [...] on filedocumented in this encounter Care Teams News Anchor Relationship Specialty Start Date End Date Desire Alanis FNP- [address] [place] [address] PCP - General NURSE PRACTITIONER 09/16/22 documented as of this encounter
--- OUTSIDE RECORDS SUMMARY | 2025-05-30 13:35 | XMS_ITS | Clinical Summary ---
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 Asthma 04/07/2010 Eczema 04/07/2010 Resolved Problems Problem Noted Date Diagnosed Date Resolved Date depression 11/21/20212022 Immunizations Immunization Administration Dates Next Due Afluria [...] Vaccines (1 - 3-dose SCDM series) 2024 COVID-19 Vaccine (3 - season) 2025 08/27/2020, 08/01/2020 Influenza Adult (#1) 2025 04/17/2022, 04/27/2020, 04/29/2019, Additional history exists DTaP, Tdap and Td Vaccines (7 - Td or Tdap) 07/18/2031 07/18/2021, 04/07/2010, 01/11/2003, Additional history exists Hepatitis B Vaccines Completed 01/20/1998, 01/20/1998, 1997, Additional history exists Meningococcal Vaccine Completed 01/28/2015, 012 Hepatitis C Completed 09/17/2022 Hepatitis A Vaccines Aged Out No long er eligible based on patient's age to complete this topic Meningococcal B Vaccine Aged Out No l onger eligible based on patient's age to complete this topic RSV Immunizations Under 20 Months Aged Out No longer eligible based on patient's age to complete this topic Procedures Procedure Name Priority Date/Time Associated Diagnosis Comments HEPATITIS C ANTIBODY W/RFX TO HCV RNA 09/17/2022 7:47 AM CDT from Last 3 Months or Most Recently Relevant to Health Maintenance Results * HEPATITIS C ANTIBODY W/RFX TO HCV [...] - 09/18/2022 9:37 AM CDT Performed at: 01 - [facility] [id number] Machine Hoop Maker Helper: Jack Houser PhD, Phone: [phone] Desire Alanis [facility] Final Re sult [facility] [address] [place] [address] [facility] 1 from Last 3 Months or Most Recently Relevant to Health Maintenance Insurance [facility] Care Teams Roller Repairer Relationship Specialty Start Date End Date Desire Alanis, [employer] STILL OPERATOR- [address] [place] [address] PCP - General NURSE PRACTITIONER 09/16/22
--- OUTSIDE RECORDS SUMMARY | 2025-05-30 13:35 | XMS_ITS | Encounter Summary ---
Author Organization [facility] Address [facility] [place] [address] Care Team Providers Care Benefits Processor Name Role Phone Desire Alanis [facility] Primary Care Provider + Encounter Details Date Type Department Care Team (Late st Contact Info) Description 09/20/2022 [facility] [address] [place] [address] Desire Alanis, [facility] [address] [place] [address] Test results Social History Tobacco Use [...] on filedocumented in this encounter Care Teams Benefits Processor Relationship Specialty Start Date End Date Desire Alanis, HEAD OF PRODUCT- [address] [place] [address] PCP - General NURSE PRACTITIONER 09/16/22 documented as of this encounter
--- OUTSIDE RECORDS SUMMARY | 2025-05-30 13:35 | XMS_ITS | Encounter Summary ---
Author Organization [facility] Address [address] [place] [address] Care Team Providers Care Manager Biostatistics Name Role Phone Desire Alanis [facility] Primary Care Provider + Encounter Details Date Type Department Care Team (Late st Contact Info) Description 01/01/2023 MyChart Message Enc [facility] - [facility] [address] [place], [place] [phone] [employer], [facility] Provider Air Quality Message Social [...] on filedocumented in this encounter Care Teams Manager Biostatistics Relationship Specialty Start Date End Date Desire Alanis, [facility]- [address] [place] [address] PCP - General NURSE PRACTITIONER 09/16/22 documented as of this encounter
--- OUTSIDE RECORDS SUMMARY | 2025-05-30 13:35 | XMS_ITS | Clinical Summary ---
Author Organization [employer] [facility] Address [address] [place] [address] Care Team Providers Care Roofing Layer Name Role Phone Miracle Schmid MD Primary Care Provider [phone] Source Comments [facility],non-owned Affiliates and Associated Physician Practices is amultiple site organization consisting of ambulatory clinics and hospital sitesin [place], [place], [place] and [place]. This disclosure is being madepursuant to the Care Everywhere program and may not contain all information available regarding this patient. Last updated 18.[employer] [facility] Allergies No known active allergies Medications * [...] on file Legal Sex Female 6:48 AM RUNNING RIGGER Gender Identity Not on file Sexual Orientation Not on file Last Filed Vital Signs Vital Sign Reading Time Taken Comments Blood Pressure 118/78 02/05/2012 4:41 PM CDT Pulse 76 08/28/2015 2:22 PM RUNNING RIGGER Temperature 37.2 C (99 F) 08/28/2015 2:22 PM RUNNING RIGGER Respiratory Rate - - Oxygen Saturation 96% 08/28/2015 2:22 PM RUNNING RIGGER Inhaled Oxygen Concentration - - Weight 94.3 [...] DEPRESSION SCREENING 07/07/2024 COVID-19 VACCINE ( - 2024- season) 2025 INFLUENZA VACCINE (#1) 2025 5, [...] topic Insurance MEDICAID - OUT OF STATE [address]ET[address] [facility] SELF PAY NO INSURANCE Member Subscriber Plan / Payer (Ef fective for All Dates) Name:Ric Cain Member ID:Not on file Relation to Subscriber:Not on file Name:RIC CAIN Subscriber ID:Not on file (Home) Address: [address] [place] [phone] Payer ID:Not on file Group ID:Not on file Type:Self Pay Address: [facility] * Guarantor: RIC RAZA Account Type Relation to Patient Date of Phone Billing Address Personal/Family 1995 [address]ASHON[address] RAZA [address] [place] [id number] Care Teams Roofing Layer Relationship Specialty Start Date End Date Miracle Schmid MD [address] [place] [phone] PCP - General 10/21/18
== END 2025-05-30 11:23 | disposition home or self-care (01) ==
LOC: ANHLAB 11:23
PROVIDERS: PCP Family Medicine; Visit Provider Obstetrics & Gynecology
DX: N92.6 Irregular menstruation, unspecified (principal)
CPT/HCPCS: 84144